=== PATIENT | male | born 1950 | race Caucasian/White ===

== ENCOUNTER 2016-06-03 07:48 | Inpatient (IN) | payer MEDICARE, MEDICAID ==
[~2016-06-03 07:48] MED LIST: Lidocaine 1%/Sod Bicarbonate in NS 8.4% 1 ML Syringe IV PRN; Sodium Chloride 0.9% 10 ML Syringe FLUSH PRN
[2016-06-03] MEDS ORDERED: Propofol 200 MG/20 ML SDV ONE ×2 (07:55→15:05)
[2016-06-03] MEDS ORDERED: fentaNYL 250 MCG/5 ML SDV ONE ×2 (07:55→12:58)
[2016-06-03] MEDS ORDERED: Midazolam 1 MG/ML 2 ML SDV ONE (07:55)
[2016-06-03] MEDS ORDERED: Rocuronium 50 MG/5 ML Vial ONE ×2 (07:58→14:50)
[2016-06-03] MEDS ORDERED: Lidocaine 1% 4 ML ONE (07:58)
[2016-06-03] MEDS: Lactated Ringers 1,000 ML IV SCH ×3 (08:35→21:10)
[2016-06-03] MEDS ORDERED: Bupivacaine 0.25% 30 ML SDV ONE (08:38)
--- NOTE | 2016-06-03 09:22 | PCM.PREANE ---
Preanesthetic Assessment - Physical Assessment Height: 1.8 m Weight: 81.647 kg - Allergies Allergies/Adverse Reactions: Allergies Allergy/AdvReac Type Severity Reaction Status Date / Time trazodone Allergy Other Verified 05/31/16 11:06 PreAnesthesia Questionnaire HEENT History: Reports: Impaired vision Other HEENT History: glasses Cardiovascular History: Reports: High cholesterol, Hypertension, PVD Respiratory History: Reports: None Gastrointestinal History: Reports: Chronic constipation, Gastritis, Other (see below) Other Gastrointestinal History: tubular adenoma Genitourinary History: Reports: Retention, urinary 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 Musculoskeletal History: Reports: None Neurological History: Reports: None Psychiatric History: Reports: Addiction, Anxiety, Depression, Schizophrenia, Suicidal ideation Endocrine/Metabolic History: Reports: Other (see below) Other Endocrine/Metabolic History: states was Dx'd with "pre-diabetic." Hematologic History: Reports: None Immunologic History: Reports: None Oncologic (Cancer) History: Reports: None Dermatologic History: Reports: None - Infectious Disease History Infectious Disease History: Reports: Shingles - Past Surgical History Head Surgeries/Procedures: Reports: None Cardiovascular Surgical History: Reports: Vascular surgery Other Cardiovascular Surgeries/Procedures: iliac artery stenosis with stent placement 07/2015 GI Surgical History: Reports: Colonoscopy - SUBSTANCE USE Smoking Status *Q: Current Every Day Smoker Tobacco Use Within Last Twelve Months: Cigarettes Second Hand Smoke Exposure: No Recreational Drug Use History: No Recreational Drug Type: Reports: Marijuana/Hashish - HOME MEDS Home Medications: Home Meds Losartan [Cozaar] 100 mg PO DAILY 09/13/15 [History] Propranolol [Inderal] 40 mg PO QID 09/13/15 [History] Tamsulosin HCl [Tamsulosin HCl] 0.4 mg PO BEDTIME 09/13/15 [History] atorvaSTATin [Lipitor] 20 mg PO BEDTIME 09/13/15 [History] metFORMIN [Glucophage XR] 500 mg PO BID 09/13/15 [History] Cholecalciferol (Vitamin D3) [Vitamin D3] 2,000 unit PO DAILY 10/13/15 [History] risperiDONE [risperiDONE] 1 mg PO BID 10/13/15 [History] Sertraline HCl [Zoloft] 50 mg PO DAILY 02/22/16 [History] clonazePAM [Clonazepam] 1 mg PO TID 02/22/16 [History] Alpha Lipoic Acid 200 mg PO DAILY 05/31/16 [History] Aspirin/Calcium Carbonate/Mag [Aspirin Buffered 325 mg Tab] 325 mg PO DAILY [History] Chromium Amino Acid Chelate [Chromium] 200 mcg PO DAILY 05/31/16 [History] Magnesium Citrate 100 mg PO DAILY 05/31/16 [History] Multivitamin [Multivitamins] 1 tab PO DAILY 05/31/16 [History] Pantoprazole Sodium [Protonix] 40 mg PO DAILY 05/31/16 [History] amLODIPine [Norvasc] 10 mg PO DAILY 05/31/16 [History] - CURRENT (IN HOUSE) MEDS Current Meds: Current Medications Lactated Ringer's (Ringers, Lactated) 1,000 mls @ 125 mls/hr IV ASDIRECTED OG Lidocaine/Sodium Bicarbonate (Buffered Lidocaine 1% In Ns 8.4%) 0.25 ml IV ONETIME PRN PRN Reason: Prior to IV Start Stop: 06/03/16 16:00 Sodium Chloride (Saline Flush) 10 ml FLUSH ASDIRECTED PRN PRN Reason: Keep Vein Open Discontinued Medications Bupivacaine HCl (Marcaine 0.25%) Confirm Administered Dose 30 ml .ROUTE .STK- MED ONE Stop: 06/03/16 08:39 Fentanyl (Sublimaze) Confirm Administered Dose 250 mcg .ROUTE .STK-MED ONE Stop: 06/03/16 07:56 Lidocaine HCl (Xylocaine-Mpf 1%) Confirm Administered Dose 4 mls @ as directed .ROUTE .STK-MED ONE Stop: 06/03/16 07:59 Midazolam HCl (Versed 1 Mg/Ml) Confirm Administered Dose 2 mg .ROUTE .STK-MED ONE Stop: 06/03/16 07:56 Propofol (Diprivan 20 Ml) Confirm Administered Dose 400 mg .ROUTE .STK-MED ONE Stop: 06/03/16 07:56 Rocuronium [place] (Zemuron) Confirm Administered Dose 50 mg .ROUTE .STK-MED ONE Stop: 06/03/16 07:59 Preanesthetic Assessment - PHYSICAL ASSESSMENT Height: 1.8 m Weight: 81.647 kg - ALLERGIES Allergies/Adverse Reactions: Allergies Allergy/AdvReac Type Severity Reaction Status Date / Time trazodone Allergy Other Verified 05/31/16 11:06
--- NOTE | 2016-06-03 09:31 | PCM.PREANE ---
Preanesthetic Assessment - Anesthesia/Transfusion/Family Hx Anesthesia History: No Prior Anesthesia Family History of Anesthesia Reaction: No Transfusion History: No Prior Transfusion(s) Intubation History: Unknown - Review of Systems General: No Symptoms Pulmonary: No Symptoms Cardiovascular: No Symptoms Gastrointestinal: No symptoms Neurological: No Symptoms Other: Reports: Diabetes - Physical Assessment NPO Status Date: 06/03/16 NPO Status Time: 22:00 Pulse: 63 O2 Sat by Pulse Oximetry: 97 Respiratory Rate: 16 Blood Pressure: 121/68 Temperature: 97.8 C Height: 1.8 m Weight: 81.647 kg ASA Class: 3 Mental Status: Alert & Oriented x3 Airway Class: Mallampati = 2 Dentition: Reports: Normal Dentition Thyro-Mental Finger Breadths: 2 Mouth Opening Finger Breadths: 4 ROM/Head Extension: Full Lungs: Clear to auscultation, Normal respiratory effort Cardiovascular: Regular Rate, Regular Rhythm - Lab Values: Laboratory Last Values WBC 10.73 K/mm3 (4.23-9.07) H 06/03/16 08:51 RBC 4.22 M/mm3 (4.63-6.08) L 06/03/16 08:51 Hgb 12.3 gm/L (13.7-17.5) L 06/03/16 08:51 Hct 36.9 % (40.1-51.0) L 06/03/16 08:51 MCV 87.4 fl (79.0-92.2) 06/03/16 08:51 MCH 29.1 pg (25.7-32.2) 06/03/16 08:51 MCHC 33.3 g/dl (32.2-35.5) 06/03/16 08:51 RDW Std Deviation 39.5 fL (35.1-43.9) 06/03/16 08:51 Plt Count 454 K/mm3 (163-337) H 06/03/16 08:51 MPV 9.2 fl (9.4-12.3) L 06/03/16 08:51 Neut % (Auto) 72.1 % (34.0-67.9) H 06/03/16 08:51 Lymph % (Auto) 14.4 % (21.8-53.1) L 06/03/16 08:51 [place] % (Auto) 8.7 % (5.3-12.2) 06/03/16 08:51 Eos % (Auto) 3.8 (0.8-7.0) 06/03/16 08:51 Baso % (Auto) 0.7 % (0.1-1.2) 06/03/16 08:51 Neut # (Auto) 7.75 K/mm3 (1.78-5.38) H 06/03/16 08:51 Lymph # (Auto) 1.54 K/mm3 (1.32-3.57) 06/03/16 08:51 [place] # (Auto) 0.93 K/mm3 (0.30-0.82) H 06/03/16 08:51 Eos # (Auto) 0.41 K/mm3 (0.04-0.54) 06/03/16 08:51 Baso # (Auto) 0.07 K/mm3 (0.01-0.08) 06/03/16 08:51 - Allergies Allergies/Adverse Reactions: Allergies Allergy/AdvReac Type Severity Reaction Status Date / Time trazodone Allergy Other Verified 06/03/16 09:15 - Blood Blood Available: No - Anesthesia Plan Pre-Op Medication Ordered: Beta Brenna Beta Brenna: Other Med Last Dose Date: 06/03/16 Med Last Dose Time: 06:30 - Acknowledgements Anesthesia Type Planned: General Anesthesia Pt an Appropriate Candidate for the Planned Anesthesia: Yes Alternatives and Risks of Anesthesia Discussed w Pt/Guardian: Yes Pt/Guardian Understands and Agrees with Anesthesia Plan: Yes Additional Comments: Pharmacy called and confirmed octreotide available and will be used in the OR for treatment of 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 Musculoskeletal History: Reports: None Neurological History: Reports: None Psychiatric History: Reports: Addiction, Anxiety, Depression, Schizophrenia, Suicidal ideation Endocrine/Metabolic History: Reports: Other (see below) Other Endocrine/Metabolic History: states was Dx'd with "pre-diabetic." Hematologic History: Reports: None Immunologic History: Reports: None Oncologic (Cancer) History: Reports: None Dermatologic History: Reports: None - Infectious Disease History Infectious Disease History: Reports: Shingles - Past Surgical History Head Surgeries/Procedures: Reports: None Cardiovascular Surgical History: Reports: Vascular surgery Other Cardiovascular Surgeries/Procedures: iliac artery stenosis with stent placement 07/2015 GI Surgical History: Reports: Colonoscopy - SUBSTANCE USE Smoking Status *Q: Current Every Day Smoker Tobacco Use Within Last Twelve Months: Cigarettes (12/ day) Second Hand Smoke Exposure: No Recreational Drug Use History: No Recreational Drug Type: Reports: Marijuana/Hashish - HOME MEDS Home Medications: Home Meds Losartan [Cozaar] 100 mg PO DAILY 09/13/15 [History] Propranolol [Inderal] 40 mg PO QID 09/13/15 [History] Tamsulosin HCl [Tamsulosin HCl] 0.4 mg PO BEDTIME 09/13/15 [History] atorvaSTATin [Lipitor] 20 mg PO BEDTIME 09/13/15 [History] metFORMIN [Glucophage XR] 500 mg PO BID 09/13/15 [History] Cholecalciferol (Vitamin D3) [Vitamin D3] 2,000 unit PO DAILY 10/13/15 [History] risperiDONE [risperiDONE] 1 mg PO BID 10/13/15 [History] Sertraline HCl [Zoloft] 50 mg PO DAILY 02/22/16 [History] clonazePAM [Clonazepam] 1 mg PO TID 02/22/16 [History] Alpha Lipoic Acid 200 mg PO DAILY 05/31/16 [History] Aspirin/Calcium Carbonate/Mag [Aspirin Buffered 325 mg Tab] 325 mg PO DAILY [History] Chromium Amino Acid Chelate [Chromium] 200 mcg PO DAILY 05/31/16 [History] Magnesium Citrate 100 mg PO DAILY 05/31/16 [History] Multivitamin [Multivitamins] 1 tab PO DAILY 05/31/16 [History] Pantoprazole Sodium [Protonix] 40 mg PO DAILY 05/31/16 [History] amLODIPine [Norvasc] 10 mg PO DAILY 05/31/16 [History] - CURRENT (IN HOUSE) MEDS Current Meds: Current Medications Lactated Ringer's (Ringers, Lactated) 1,000 mls @ 125 mls/hr IV ASDIRECTED OG Octreotide Acetate 1,000 mcg/ (Sodium Chloride) 100 mls @ 25 mls/hr IV ONETIME OG Lidocaine/Sodium Bicarbonate (Buffered Lidocaine 1% In Ns 8.4%) 0.25 ml IV ONETIME PRN PRN Reason: Prior to IV Start Stop: 06/03/16 16:00 Sodium Chloride (Saline Flush) 10 ml FLUSH ASDIRECTED PRN PRN Reason: Keep Vein Open Discontinued Medications Bupivacaine HCl (Marcaine 0.25%) Confirm Administered Dose 30 ml .ROUTE .STK- MED ONE Stop: 06/03/16 08:39 Fentanyl (Sublimaze) Confirm Administered Dose 250 mcg .ROUTE .STK-MED ONE Stop: 06/03/16 07:56 Lidocaine HCl (Xylocaine-Mpf 1%) Confirm Administered Dose 4 mls @ as directed .ROUTE .STK-MED ONE Stop: 06/03/16 07:59 Midazolam HCl (Versed 1 Mg/Ml) Confirm Administered Dose 2 mg .ROUTE .STK-MED ONE Stop: 06/03/16 07:56 Propofol (Diprivan 20 Ml) Confirm Administered Dose 400 mg .ROUTE .STK-MED ONE Stop: 06/03/16 07:56 Rocuronium [place] (Zemuron) Confirm Administered Dose 50 mg .ROUTE .STK-MED ONE Stop: 06/03/16 07:59 Preanesthetic Assessment - PHYSICAL ASSESSMENT Height: 1.8 m Weight: 81.647 kg - LAB Values: Laboratory Last Values WBC 10.73 K/mm3 (4.23-9.07) H 06/03/16 08:51 RBC 4.22 M/mm3 (4.63-6.08) L 06/03/16 08:51 Hgb 12.3 gm/L (13.7-17.5) L 06/03/16 08:51 Hct 36.9 % (40.1-51.0) L 06/03/16 08:51 MCV 87.4 fl (79.0-92.2) 06/03/16 08:51 MCH 29.1 pg (25.7-32.2) 06/03/16 08:51 MCHC 33.3 g/dl (32.2-35.5) 06/03/16 08:51 RDW Std Deviation 39.5 fL (35.1-43.9) 06/03/16 08:51 Plt Count 454 K/mm3 (163-337) H 06/03/16 08:51 MPV 9.2 fl (9.4-12.3) L 06/03/16 08:51 Neut % (Auto) 72.1 % (34.0-67.9) H 06/03/16 08:51 Lymph % (Auto) 14.4 % (21.8-53.1) L 06/03/16 08:51 [place] % (Auto) 8.7 % (5.3-12.2) 06/03/16 08:51 Eos % (Auto) 3.8 (0.8-7.0) 06/03/16 08:51 Baso % (Auto) 0.7 % (0.1-1.2) 06/03/16 08:51 Neut # (Auto) 7.75 K/mm3 (1.78-5.38) H 06/03/16 08:51 Lymph # (Auto) 1.54 K/mm3 (1.32-3.57) 06/03/16 08:51 [place] # (Auto) 0.93 K/mm3 (0.30-0.82) H 06/03/16 08:51 Eos # (Auto) 0.41 K/mm3 (0.04-0.54) 06/03/16 08:51 Baso # (Auto) 0.07 K/mm3 (0.01-0.08) 06/03/16 08:51 - ALLERGIES Allergies/Adverse Reactions: Allergies Allergy/AdvReac Type Severity Reaction Status Date / Time trazodone Allergy Other Verified 06/03/16 09:15
[2016-06-03] MEDS ORDERED: Ondansetron 4 MG/2 ML SDV IVPUSH ONE (09:55)
[2016-06-03] MEDS ORDERED: Famotidine 20 MG/2 ML SDV IVPUSH ONE (09:57)
[2016-06-03] MEDS ORDERED: Acetaminophen 325 MG Tab PO STA (09:58)
[2016-06-03] MEDS ORDERED: cefOXitin 2 GM in Premix Bag 1 BAG IV SCH (10:00)
[2016-06-03] MEDS ORDERED: Octreotide 50 MCG/1 ML Amp ONE (11:00)
[2016-06-03] MEDS ORDERED: ePHEDrine/Normal Saline 25 MG/5 ML Syringe ONE ×3 (11:55→13:43)
[2016-06-03] MEDS ORDERED: Phenylephrine/Normal Saline 100 MCG/ML 10 ML Syringe ONE ×2 (11:56→13:37)
[2016-06-03] MEDS ORDERED: Ketamine 500 mg/10 ML MDV ONE (12:55)
[2016-06-03] MEDS ORDERED: Ondansetron 4 MG/2 ML SDV IVPUSH PRN ×2 (12:56→15:45)
[2016-06-03] MEDS ORDERED: diphenhydrAMINE 50 MG/ML SDV IVPUSH PRN (12:56)
[2016-06-03] MEDS ORDERED: fentaNYL 100 MCG/2 ML SDV IVPUSH PRN (12:56)
[2016-06-03] MEDS ORDERED: HYDROmorphone 0.5 MG/0.5 ML Syringe IVPUSH PRN (14:05)
[2016-06-03] MEDS ORDERED: Lactated Ringers 1,000 ML ONE ×5 (14:17→15:05)
[2016-06-03] MEDS ORDERED: HYDROmorphone 1 MG/ML Syringe ONE (14:18)
[2016-06-03] MEDS ORDERED: Neostigmine Methylsulfate 1 MG/ML 5 ML Syringe ONE (15:10)
[2016-06-03] MEDS ORDERED: Ketorolac 30 MG/ML SDV ONE (15:14)
[2016-06-03] MEDS ORDERED: Albuterol 6.7 GM Inhaler INH ONE (15:30)
--- NOTE | 2016-06-03 15:31 | PCM.OPNOTE ---
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
--- NOTE | 2016-06-03 15:52 | PCM.POSTAN ---
POST ANESTHESIA ASSESSMENT - MENTAL STATUS Mental Status: other (drowsy ) - VITAL SIGNS Pulse Rate: 92 SaO2: 99 Resp Rate: 12 Blood Pressure: 139/69 Temperature: 36.9 C - RESPIRATORY Respiratory Status: respiratory rate WNL, airway patent, O2 saturation stable - CARDIOVASCULAR CV Status: pulse rate WNL, blood pressure stable - GASTROINTESTINAL GI Status: no symptoms - PAIN Pain Score: 0 - POST OP HYDRATION Hydration Status: adequate & stable
--- NOTE | 2016-06-03 16:12 | PCM.CONS ---
H&P History of Present Illness - General Date of Service: 06/03/16 Admit Problem/Dx: Admission Diagnosis/Problem Admission Diagnosis/Problem Colectomy - History of Present Illness Initial Comments - Free Text/Narative: This is a 65-year-old male with a history of hypertension, pre-diabetes, Schizophrenia, peripheral arterial disease, depression, BPH, hyperlipidemia, anxiety, GERD, and other comorbidities who underwent right hemicolectomy for large cecal polyp with Dr. Coy today. At this time, patient reports that the pain is under control and otherwise denies any other active complaints. Estimated blood loss was 50 cc. During the surgery, patient required few hours of [place]-Synephrine infusion for blood pressure of 100/40s, occasionally dipping down to the 70s systolic. He also required several boluses of octreotide, as his tumor in the colon was suspected to be possible carcinoid. He received about 4.2 L of IV fluids during the surgery. Postoperatively his blood pressure was in the 150s systolic and stable. Patient has a flat affect upon interview. He is not answering some of my questions. Does not to be in distress. We are being asked to evaluate him for management of his chronic medical comorbidities including hypertension, prediabetes, depression, and PAD. Abdomen Pain Score (Numeric/FACES): 2 - Related Data Allergies/Adverse Reactions: Allergies Allergy/AdvReac Type Severity Reaction Status Date / Time trazodone Allergy Other Verified 06/03/16 09:15 Home Medications: Home Meds Losartan [Cozaar] 100 mg PO DAILY 09/13/15 [History] Propranolol [Inderal] 40 mg PO QID 09/13/15 [History] Tamsulosin HCl [Tamsulosin HCl] 0.4 mg PO BEDTIME 09/13/15 [History] atorvaSTATin [Lipitor] 20 mg PO BEDTIME 09/13/15 [History] metFORMIN [Glucophage XR] 500 mg PO BID 09/13/15 [History] Cholecalciferol (Vitamin D3) [Vitamin D3] 2,000 unit PO DAILY 10/13/15 [History] risperiDONE [risperiDONE] 1 mg PO BID 10/13/15 [History] Sertraline HCl [Zoloft] 50 mg PO DAILY 02/22/16 [History] clonazePAM [Clonazepam] 1 mg PO TID 02/22/16 [History] Alpha Lipoic Acid 200 mg PO DAILY 05/31/16 [History] Chromium Amino Acid Chelate [Chromium] 200 mcg PO DAILY 05/31/16 [History] Magnesium Citrate 100 mg PO DAILY 05/31/16 [History] Multivitamin [Multivitamins] 1 tab PO DAILY 05/31/16 [History] Pantoprazole Sodium [Protonix] 40 mg PO DAILY 05/31/16 [History] amLODIPine [Norvasc] 10 mg PO DAILY 05/31/16 [History] Aspirin [Ecotrin] 325 mg PO DAILY 06/03/16 [History] Past Medical History HEENT History: Reports: Impaired vision Other HEENT History: glasses Cardiovascular History: Reports: High cholesterol, Hypertension, PVD Respiratory History: Reports: None Gastrointestinal History: Reports: Chronic constipation, Gastritis, Other (see below) Other Gastrointestinal History: tubular adenoma Genitourinary History: Reports: Retention, urinary 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 Musculoskeletal History: Reports: None Neurological History: Reports: None Psychiatric History: Reports: Addiction, Anxiety, Depression, Schizophrenia, Suicidal ideation Endocrine/Metabolic History: Reports: Other (see below) Other Endocrine/Metabolic History: states was Dx'd with "pre-diabetic." Hematologic History: Reports: None Immunologic History: Reports: None Oncologic (Cancer) History: Reports: None Dermatologic History: Reports: None - Infectious Disease History Infectious Disease History: Reports: Shingles - Past Surgical History Head Surgeries/Procedures: Reports: None Cardiovascular Surgical History: Reports: Vascular surgery Other Cardiovascular Surgeries/Procedures: iliac artery stenosis with stent placement 07/2015 GI Surgical History: Reports: Colonoscopy Social & Family History - Family History Cardiac: Reports: High cholesterol, [place] (Father), Other (see below) (Unspecified heart disease in mother) - Tobacco Use Smoking Status *Q: Current Every Day Smoker Years of Tobacco use: 45 Packs/Tins Daily: 0.5 Second Hand Smoke Exposure: No - Caffeine Use Caffeine Use: Reports: None - Recreational Drug Use Recreational Drug Use: No Recreational Drug Type: Reports: Marijuana/Hashish - Living Situation & Occupation Living situation: Reports: single, alone Occupation: retired H&P Review of Systems - Review of Systems: Review Of Systems: See Below (Review of systems is unreliable as patient was only answering some of the questions.) General: Denies: fever, chills, night sweats HEENT: Denies: headaches, vertigo Pulmonary: Denies: Shortness of Breath, Wheezing, Cough Cardiovascular: Denies: chest pain, palpitations, orthopnea Gastrointestinal: Denies: Abdominal pain, Diarrhea, Nausea, Vomiting Genitourinary: Denies: dysuria, frequency, burning Psychiatric: Denies: confusion, depression, anxiety Exam - Exam Exam: See Below - Vital Signs Vital Signs: Last Vital Signs Temp 36.9 C 06/03/16 15:52 Pulse 87 06/03/16 15:53 Resp 16 06/03/16 15:53 BP 154/56 H 06/03/16 15:53 Pulse Ox 100 06/03/16 15:53 Weight: 81.647 kg - Exam Physical Exam Comments:: Vitals: as above General: alert and oriented. NAD Psych: Pleasant affect. Only answering some questions. calm. HEENT: normocephalic, atraumatic. EOMI Cardiac: Normal S1, S2. regular rate. No murmurs rubs, or gallops. No JVD noted. Lungs: CTAB. good air entry bilaterally. Abd: Soft, NT/ND. No HSM noted. Multiple new incision sites and dressing, which appear to be dry. Skin: no new visible rashes or purpura noted Neuro: CN grossly intact. Strength intact and adequate bilaterally. - Patient Data Lab Results last 24 hrs: Laboratory Results - last 24 hr 06/03/16 06/03/16 06/03/16 Range/Units 08:51 08:51 08:51 WBC 10.73 H (4.23-9.07) K/mm3 RBC 4.22 L (4.63-6.08) M/mm3 Hgb 12.3 L (13.7-17.5) gm/L Hct 36.9 L (40.1-51.0) % MCV 87.4 (79.0-92.2) fl MCH 29.1 (25.7-32.2) pg MCHC 33.3 (32.2-35.5) g/dl RDW Std Deviation 39.5 (35.1-43.9) fL Plt Count 454 H (163-337) K/mm3 MPV 9.2 L (9.4-12.3) fl Neut % (Auto) 72.1 H (34.0-67.9) % Lymph % (Auto) 14.4 L (21.8-53.1) % [place] % (Auto) 8.7 (5.3-12.2) % Eos % (Auto) 3.8 (0.8-7.0) Baso % (Auto) 0.7 (0.1-1.2) % Neut # (Auto) 7.75 H (1.78-5.38) K/mm3 Lymph # (Auto) 1.54 (1.32-3.57) K/mm3 [place] # (Auto) 0.93 H (0.30-0.82) K/mm3 Eos # (Auto) 0.41 (0.04-0.54) K/mm3 Baso # (Auto) 0.07 (0.01-0.08) K/mm3 Sodium 135 L (136-145) mEq/L Potassium 4.0 (3.5-5.1) mEq/L Chloride 100 (98-107) mEq/L Carbon Dioxide 24 (21-32) mEq/L Anion Gap 15.0 (5-15) BUN 5 L (7-18) mg/dL Creatinine 0.8 (0.7-1.3) mg/dL Est Cr Clr Drug Dosing 96.74 mL/min Estimated GFR (MDRD) > 60 (>60) mL/min BUN/Creatinine Ratio 6.3 L (14-18) Glucose 132 H (80-115) mg/dL POC Glucose (80-115) mg/dL Calcium 8.6 (8.5-10.1) mg/dL Blood Type O POSITIVE Gel Antibody Screen Negative 06/03/16 Range/Units 09:46 WBC (4.23-9.07) K/mm3 RBC (4.63-6.08) M/mm3 Hgb (13.7-17.5) gm/L Hct (40.1-51.0) % MCV (79.0-92.2) fl MCH (25.7-32.2) pg MCHC (32.2-35.5) g/dl RDW Std Deviation (35.1-43.9) fL Plt Count (163-337) K/mm3 MPV (9.4-12.3) fl Neut % (Auto) (34.0-67.9) % Lymph % (Auto) (21.8-53.1) % [place] % (Auto) (5.3-12.2) % Eos % (Auto) (0.8-7.0) Baso % (Auto) (0.1-1.2) % Neut # (Auto) (1.78-5.38) K/mm3 Lymph # (Auto) (1.32-3.57) K/mm3 [place] # (Auto) (0.30-0.82) K/mm3 Eos # (Auto) (0.04-0.54) K/mm3 Baso # (Auto) (0.01-0.08) K/mm3 Sodium (136-145) mEq/L Potassium (3.5-5.1) mEq/L Chloride (98-107) mEq/L Carbon Dioxide (21-32) mEq/L Anion Gap (5-15) BUN (7-18) mg/dL Creatinine (0.7-1.3) mg/dL Est Cr Clr Drug Dosing mL/min Estimated GFR (MDRD) (>60) mL/min BUN/Creatinine Ratio (14-18) Glucose (80-115) mg/dL POC Glucose 121 H (80-115) mg/dL Calcium (8.5-10.1) mg/dL Blood Type Gel Antibody Screen Result Diagrams: 06/03/16 08:51 06/03/16 08:51 Consult PN Assessment/Plan POD#: 0 Procedures: Procedures ASSAY OF AMYLASE (09/13/15) ASSAY OF LIPASE (03/26/16) ASSAY OF MAGNESIUM (10/13/15) ASSAY OF TROPONIN QUANT (10/13/15) ASSAY THYROID STIM HORMONE (10/13/15) BLOOD GASES ANY COMBINATION (10/13/15) CHEST X-RAY 2VW FRONTAL&LATL (10/13/15) COMPLETE CBC W/AUTO DIFF WBC (03/26/16) COMPREHEN METABOLIC PANEL (03/26/16) CT ANGIO ABDOMINAL ARTERIES (06/16/15) ELECTROCARDIOGRAM TRACING (10/13/15) EMERGENCY DEPT VISIT (03/26/16) EMERGENCY DEPT VISIT (02/22/16) EMERGENCY DEPT VISIT (09/24/15) EMERGENCY DEPT VISIT (09/13/15) FIBRIN DEGRADATION QUANT (10/13/15) HELICOBACTER PYLORI ANTIBODY (02/22/16) HYDRATE IV INFUSION ADD-ON (10/11/15) ROUTINE VENIPUNCTURE (03/26/16) RPR S/N/AX/GEN/TRNK 2.5CM/< (02/22/16) THER/PROPH/DIAG INJ IV PUSH (10/11/15) TX/PRO/DX INJ NEW DRUG ADDON (10/11/15) TX/PRO/DX INJ SAME DRUG 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 (09/24/15) URINALYSIS AUTO W/O SCOPE (10/11/15) URINALYSIS AUTO W/SCOPE (03/26/16) WITHDRAWAL OF ARTERIAL BLOOD (10/13/15) X-RAY EXAM OF ABDOMEN (02/22/16) (1) HTN (hypertension) SNOMED Code(s): 48025401 Code(s): I10 - ESSENTIAL (PRIMARY) HYPERTENSION Current Visit: Yes Qualifiers: Hypertension type: unspecified secondary hypertension Qualified Code(s): I15.9 - Secondary hypertension, unspecified; I15 - Secondary hypertension (2) GERD (gastroesophageal reflux disease) SNOMED Code(s): 718172804 Code(s): K21.9 - GASTRO-ESOPHAGEAL REFLUX DISEASE WITHOUT ESOPHAGITIS Current Visit: Yes Qualifiers: Esophagitis presence: esophagitis presence not specified Qualified Code(s) : K21.9 - Gastro-esophageal reflux disease without esophagitis (3) PAD (peripheral artery disease) SNOMED Code(s): 828406198 Code(s): I73.9 - PERIPHERAL VASCULAR DISEASE, UNSPECIFIED Current Visit: Yes (4) Anxiety SNOMED Code(s): 90395107 Code(s): F41.9 - ANXIETY DISORDER, UNSPECIFIED Current Visit: No Problem List Initiated/Reviewed/Updated: Yes Plan: Large right cecal polyp, s/p Right hemicolectomy, POD#0 - Pain regimen per primary team; pain currently under control Severe intraoperative hypotension. Resolved with fluids, and octreotide. 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 Continue to monitor closely. Has an arterial line in place. Chronic medical conditions: Hypertension-continue ARB, and looking Prediabetes-hold metformin while in the hospital, no need for sliding scale insulin as HBA1c was 5.7% in Apr GERD-continue PPI PAD - would resume aspirin starting tomorrow, okay per Dr. Coy. Depression-continue SSRI BPH-continue off shailesh Hyperlipidemia-continue statin Anxiety-continue clonazepam as needed Psychiatric comorbidities discontinue Risperdal I reconciled the medications as mentioned above and discussed case with Dr. Coy. DVT prophylaxis with SCDs today, and patient to resume aspirin tomorrow, and start subcutaneous case Lovenox per Dr. Coy. Requesting Provider: Dr. Coy Date Consult Requested: 06/03/16 Reason for Consult: medical management Patient History Reviewed: Yes Admission H&P Reviewed: Yes
[2016-06-03] MEDS ORDERED: Sodium Chloride 0.9% 500 ML ONE (16:53)
[2016-06-03] MEDS ORDERED: Diphtheria,Pertussis(Acell),Tetanus Vaccine 0.5 ML SDV inactive IM ONE (17:22)
[2016-06-03] MEDS: HYDROmorphone 0.5 MG/0.5 ML Syringe IVPUSH PRN ×2 (17:30→22:01)
[2016-06-03] MEDS: ClonazePAM 1 MG Tab PO SCH ×2 (18:48→21:59)
[2016-06-03] MEDS: Propranolol 40 MG Tab PO SCH ×2 (18:48→21:59)
[2016-06-03] MEDS: risperiDONE 1 MG Tab PO SCH (21:59)
[2016-06-03] MEDS: Simvastatin 20 MG Tab PO SCH (21:59)
[2016-06-03] MEDS: Tamsulosin 0.4 MG Cap.ER PO SCH (21:59)
[2016-06-04] MEDS: HYDROmorphone 0.5 MG/0.5 ML Syringe IVPUSH PRN ×3 (02:13→20:10)
[2016-06-04] MEDS: Lactated Ringers 1,000 ML IV SCH ×2 (06:29→16:31)
[2016-06-04] MEDS: Pantoprazole 40 MG Tab.CR PO SCH (06:43)
--- NOTE | 2016-06-04 07:23 | OR ---
DATE OF OPERATION: 06/03/2016 SURGEON: Vernon Jacques MD PREOPERATIVE DIAGNOSIS: Adenoma of the cecum, with carcinoid of the ascending colon. POSTOPERATIVE DIAGNOSIS: Adenoma of the cecum, with carcinoid of the ascending colon. OPERATION PERFORMED: Right hemicolectomy done under general anesthetic. ESTIMATED BLOOD LOSS: 50 mL. FINDINGS: Adenoma of the cecum and history of carcinoid, removed by colonoscopy. ANESTHESIA: Done under general anesthetic. DESCRIPTION OF PROCEDURE: The patient was taken to the operating room, placed in a supine position under a mcgee bag. The patient was given a general anesthetic and intubated. SCDs were placed. Uribe catheter was inserted and he was placed in lithotomy position. The abdomen was prepped with Betadine scrubbing solution, draped off in a sterile fashion. Incision was made just below the umbilicus using a 10 mm port. The abdominal cavity was entered. Pneumoperitoneum was established and a 5 mm 30-degree camera was inserted. Abdominal cavity was scanned. Liver was free of any disease. There was no pathology seen. The patient was placed in reverse Trendelenburg, leftward tilt. The small bowel was then moved to the right upper quadrant and the omentum up over the liver. The cecum was tented in the right caudal position tenting up the ileal colic vessel, this was skeletonized, secured with 2 clips and cut. Dissection was carried superiorly where the right colic artery was then taken down. It was then carried inferiorly down as far as the ileum using the LigaSure. Appendix was then mobilized and the lateral dissection was then performed and extended up to the hepatic flexure. Attention was then directed to the transverse colon and this was taken down further up to where the section of the transverse colon on the right side was anticipated. Transverse colon was then retracted caudally and the mesocolon was then taken down along with the gastrocolic attachments. This mobilized the colon and right colon sufficiently. There was minimal blood loss. This completed the intraabdominal portion and incision was made from the umbilicus down for short distance and the abdominal cavity was entered and the cecum was then brought out and the mesentery was then taken down between curved hemostats, cut and tied with 3-0 Vicryl suture. The small bowel was then amputated with the SPENCER 55 stapler as was the transverse colon. Opening was made in the small bowel and the large bowel and a SPENCER 100 stapler was inserted and this was fired. Another TIA 90 was used to close this wound. This was allowed to fall back in the abdominal cavity and the surgical incision of the abdomen was closed with running #1 PDS. Pneumoperitoneum was established and showing no twist or turns in the small bowel or in the ileocolonic anastomosis. The area was then irrigated. This completed the intraabdominal portion. Pneumoperitoneum was removed and the skin of each port closed with subdermal 3-0 Vicryl sutures and the skin incision in the subumbilical area was closed with subdermal 3-0 Vicryl suture and running subdermal 4-0 Dexon suture. Steri-Strips, sterile dressing placed. The patient tolerated the procedure. Sterile dressing placed. The colon was then opened and placed in formalin and sent to pathology. MMODAL /[id number]
[2016-06-04] MEDS ORDERED: Pneumococcal Polyvalent-23 Vaccine 0.5 ML SDV SUBCUT ONE (07:59)
--- NOTE | 2016-06-04 08:08 | PCM48HPAN ---
Post Anesthesia Note - EVALUATION WITHIN 48HRS OF ANESTHETIC Vital Signs in Normal Range: Yes Patient Participated in Evaluation: Yes Respiratory Function Stable: Yes Airway Patent: Yes Cardiovascular Function Stable: Yes Hydration Status Stable: Yes Pain Control Satisfactory: Yes (Pt states was able to sleep last night. Reports 3-4 level of discomfort) Nausea and Vomiting Control Satisfactory: Yes Mental Status Recovered: Yes - COMMENTS/OBSERVATIONS Free Text/Narrative:: Pt reports no recall during anesthesia
[2016-06-04] MEDS: Magnesium Oxide 400 MG Tab PO SCH (10:02)
[2016-06-04] MEDS: Propranolol 40 MG Tab PO SCH ×4 (10:02→20:10)
[2016-06-04] MEDS: Aspirin 325 MG Tab.EC PO SCH (10:03)
[2016-06-04] MEDS: Cholecalciferol (Vitamin D3) 1,000 Unit Tab PO SCH (10:03)
[2016-06-04] MEDS: Multivitamins,Therapeutic Tab PO SCH (10:03)
[2016-06-04] MEDS: Losartan 100 MG Tab PO SCH (10:03)
[2016-06-04] MEDS: risperiDONE 1 MG Tab PO SCH ×2 (10:04→20:10)
[2016-06-04] MEDS: amLODIPine 10 MG Tab PO SCH (10:04)
[2016-06-04] MEDS: Sertraline 50 MG Tab PO SCH (10:04)
[2016-06-04] MEDS: ClonazePAM 1 MG Tab PO SCH ×3 (10:04→20:10)
[2016-06-04] MEDS: Enoxaparin 40 MG/0.4 ML Syringe SUBCUT SCH (10:04)
[2016-06-04] MEDS: Nicotine 14 MG/24 Hr Patch TRDERM SCH (10:05)
--- NOTE | 2016-06-04 10:49 | PCM.SURGPN ---
- General Info Date of Service: 06/04/16 POD#: 1 Functional Status: Reports: pain controlled - Review of Systems General: Reports: No Symptoms Pulmonary: Reports: no symptoms Gastrointestinal: Reports: No symptoms - Patient Data Vitals - most recent: Last Vital Signs Temp 97.3 F 06/04/16 08:00 Pulse 71 06/04/16 04:00 Resp 19 06/04/16 08:00 BP 141/69 H 06/04/16 10:04 Pulse Ox 94 L 06/04/16 08:00 Weight - most recent: 80.467 kg I&O - last 24 hours: Intake & Output 06/03/16 06/04/16 06/04/16 23:59 07:59 15:59 Intake Total 1125 1366 Output Total 100 400 500 Balance 1025 966 -500 Lab Results last 24 hrs: Laboratory Results - last 24 hr 06/03/16 06/04/16 06/04/16 Range/Units 08:51 06:35 06:35 WBC 11.00 H (4.23-9.07) K/mm3 RBC 3.73 L (4.63-6.08) M/mm3 Hgb 10.8 L (13.7-17.5) gm/L Hct 33.2 L (40.1-51.0) % MCV 89.0 (79.0-92.2) fl MCH 29.0 (25.7-32.2) pg MCHC 32.5 (32.2-35.5) g/dl RDW Std Deviation 40.6 (35.1-43.9) fL Plt Count 412 H (163-337) K/mm3 MPV 9.4 (9.4-12.3) fl Sodium 132 L (136-145) mEq/L Potassium 4.0 (3.5-5.1) mEq/L Chloride 99 (98-107) mEq/L Carbon Dioxide 26 (21-32) mEq/L Anion Gap 11.0 (5-15) BUN 5 L (7-18) mg/dL Creatinine 0.8 (0.7-1.3) mg/dL Est Cr Clr Drug Dosing 98.22 mL/min Estimated GFR (MDRD) > 60 (>60) mL/min BUN/Creatinine Ratio 6.3 L (14-18) Glucose 120 H (80-115) mg/dL Calcium 8.2 L (8.5-10.1) mg/dL Iron (65-175) ug/dL TIBC (100-400) ug/dL % Saturation (20-55) % Transferrin (202-364) mg/dL Total Bilirubin 0.5 (0.2-1.0) mg/dL AST 14 L (15-37) U/L ALT 24 (16-63) U/L Alkaline Phosphatase 80 (46-116) U/L Total Protein 5.8 L (6.4-8.2) g/dl Albumin 2.8 L (3.4-5.0) g/dl Globulin 3.0 gm/dL Albumin/Globulin Ratio 0.9 L (1-2) Vitamin B12 (193-986) pg/ml Folate (8.6-58.9) ng/mL Blood Type O POSITIVE Gel Antibody Screen Negative 06/04/16 Range/Units 06:35 WBC (4.23-9.07) K/mm3 RBC (4.63-6.08) M/mm3 Hgb (13.7-17.5) gm/L Hct (40.1-51.0) % MCV (79.0-92.2) fl MCH (25.7-32.2) pg MCHC (32.2-35.5) g/dl RDW Std Deviation (35.1-43.9) fL Plt Count (163-337) K/mm3 MPV (9.4-12.3) fl Sodium (136-145) mEq/L Potassium (3.5-5.1) mEq/L Chloride (98-107) mEq/L Carbon Dioxide (21-32) mEq/L Anion Gap (5-15) BUN (7-18) mg/dL Creatinine (0.7-1.3) mg/dL Est Cr Clr Drug Dosing mL/min Estimated GFR (MDRD) (>60) mL/min BUN/Creatinine Ratio (14-18) Glucose (80-115) mg/dL Calcium (8.5-10.1) mg/dL Iron 72 (65-175) ug/dL TIBC 261 (100-400) ug/dL % Saturation 28 (20-55) % Transferrin 209 (202-364) mg/dL Total Bilirubin (0.2-1.0) mg/dL AST (15-37) U/L ALT (16-63) U/L Alkaline Phosphatase (46-116) U/L Total Protein (6.4-8.2) g/dl Albumin (3.4-5.0) g/dl Globulin gm/dL Albumin/Globulin Ratio (1-2) Vitamin B12 3243 H (193-986) pg/ml Folate 14.6 (8.6-58.9) ng/mL Blood Type Gel Antibody Screen Med Orders - Current: Current Medications Amlodipine Besylate (Norvasc) 10 mg PO DAILY [facility] Last Admin: 06/04/16 10:04 Dose: 10 mg Aspirin (Ecotrin) 325 mg PO DAILY [facility] Last Admin: 06/04/16 10:03 Dose: 325 mg Cholecalciferol (Vitamin D3) 2,000 units PO DAILY [facility] Last Admin: 06/04/16 10:03 Dose: 2,000 units Clonazepam (Klonopin) 1 mg PO TID [facility] Last Admin: 06/04/16 10:04 Dose: 1 mg Enoxaparin Sodium (Lovenox) 40 mg SUBCUT DAILY [facility] Last Admin: 06/04/16 10:04 Dose: 40 mg Hydromorphone HCl (Dilaudid) 0.5 mg IVPUSH Q1H PRN PRN Reason: Pain Last Admin: 06/04/16 08:52 Dose: 0.5 mg Lactated Ringer's (Ringers, Lactated) 1,000 mls @ 100 mls/hr IV ASDIRECTED [facility] Last Admin: 06/04/16 06:29 Dose: 100 mls/hr Losartan Potassium (Cozaar) 100 mg PO DAILY [facility] Last Admin: 06/04/16 10:03 Dose: 100 mg Magnesium Oxide (Magnesium Oxide) 400 mg PO DAILY [facility] Miscellaneous Information (Remove Patch) 0 ea TRDERM DAILY [facility] Multivitamins (Thera) 1 each PO DAILY [facility] Last Admin: 06/04/16 10:03 Dose: 1 each Nicotine (Habitrol) 14 mg TRDERM DAILY [facility] Last Admin: 06/04/16 10:05 Dose: 14 mg Ondansetron HCl (Zofran) 4 mg IVPUSH Q8H PRN PRN Reason: Nausea Pantoprazole Sodium (Protonix) 40 mg PO DAILY@0700 [facility] Last Admin: 06/04/16 06:43 Dose: 40 mg Propranolol HCl (Inderal) 40 mg PO QID [facility] Last Admin: 06/04/16 10:02 Dose: 40 mg Risperidone (Risperidal) 1 mg PO BID [facility] Last Admin: 06/04/16 10:04 Dose: 1 mg Sertraline HCl (Zoloft) 50 mg PO DAILY [facility] Last Admin: 06/04/16 10:04 Dose: 50 mg Simvastatin (Zocor) 20 mg PO BEDTIME [facility] Last Admin: 06/03/16 21:59 Dose: 20 mg Sodium Chloride (Saline Flush) 10 ml FLUSH ASDIRECTED PRN PRN Reason: Keep Vein Open Last Admin: 06/04/16 08:53 Dose: 10 ml Tamsulosin HCl (Flomax) 0.4 mg PO BEDTIME [facility] Last Admin: 06/03/16 21:59 Dose: 0.4 mg Discontinued Medications Acetaminophen (Tylenol) 650 mg PO NOW STA Stop: 06/03/16 09:59 Last Admin: 06/03/16 10:09 Dose: 650 mg Albuterol (Proventil Hfa) Confirm Administered Dose 6.7 gm INH .STK-MED ONE Stop: 06/03/16 15:31 Bupivacaine HCl (Marcaine 0.25%) Confirm Administered Dose 30 ml .ROUTE .STK- MED ONE Stop: 06/03/16 08:39 Last Admin: 06/03/16 12:16 Dose: 2 ml Diphenhydramine HCl (Benadryl) 25 mg IVPUSH Q6H PRN PRN Reason: pruritis Stop: 06/03/16 18:00 Diphtheria/Tetanus/Acell Pertussis (Boostrix) 0.5 ml IM .ONCE ONE Stop: 06/03/16 17:23 Ephedrine Sulfate (Ephedrine In Ns) Confirm Administered Dose 25 mg .ROUTE .STK- MED ONE Stop: 06/03/16 11:56 Ephedrine Sulfate (Ephedrine In Ns) Confirm Administered Dose 25 mg .ROUTE .STK- MED ONE Stop: 06/03/16 13:23 Ephedrine Sulfate (Ephedrine In Ns) Confirm Administered Dose 25 mg .ROUTE .STK- MED ONE Stop: 06/03/16 13:44 Famotidine (Pepcid) 20 mg IVPUSH ONETIME ONE Stop: 06/03/16 09:58 Last Admin: 06/03/16 10:11 Dose: 20 mg Fentanyl (Sublimaze) Confirm Administered Dose 250 mcg .ROUTE .STK-MED ONE Stop: 06/03/16 07:56 Fentanyl (Sublimaze) Confirm Administered Dose 250 mcg .ROUTE .STK-MED ONE Stop: 06/03/16 12:59 Fentanyl (Sublimaze) 50 mcg IVPUSH Q5M PRN PRN Reason: Pain Stop: 06/03/16 18:00 Glycopyrrolate () Confirm Administered Dose 1 mg .ROUTE .STK-MED ONE Stop: 06/03/16 15:11 Hydromorphone HCl (Dilaudid) 0.5 mg IVPUSH Q15M PRN PRN Reason: severe pain Stop: 06/03/16 14:21 Hydromorphone HCl (Dilaudid) Confirm Administered Dose 1 mg .ROUTE .STK-MED ONE Stop: 06/03/16 14:19 Lactated Ringer's (Ringers, Lactated) 1,000 mls @ 125 mls/hr IV ASDIRECTED [facility] Last Admin: 06/03/16 09:42 Dose: 125 mls/hr Lidocaine HCl (Xylocaine-Mpf 1%) Confirm Administered Dose 4 mls @ as directed .ROUTE .STK-MED ONE Stop: 06/03/16 07:59 Octreotide Acetate 1,000 mcg/ (Sodium Chloride) 100 mls @ 25 mls/hr IV ONETIME OG Cefoxitin Sodium 2 gm/ Premix 50 mls @ 100 mls/hr IV ONETIME OG Stop: 06/03/16 23:59 Last Admin: 06/03/16 10:50 Dose: 100 mls/hr Octreotide Acetate 1,000 mcg/ (Sodium Chloride) 100 mls @ 25 mls/hr IV ONETIME GO Lactated Ringer's (Ringers, Lactated) Confirm Administered Dose 1,000 mls @ as directed .ROUTE .STK-MED ONE Stop: 06/03/16 14:18 Lactated Ringer's (Ringers, Lactated) Confirm Administered Dose 1,000 mls @ as directed .ROUTE .STK-MED ONE Stop: 06/03/16 14:18 Lactated Ringer's (Ringers, Lactated) Confirm Administered Dose 1,000 mls @ as directed .ROUTE .ST-MED ONE Stop: 06/03/16 14:18 Lactated Ringer's (Ringers, Lactated) Confirm Administered Dose 1,000 mls @ as directed .ROUTE .ST-MED ONE Stop: 06/03/16 14:18 Lactated Ringer's (Ringers, Lactated) Confirm Administered Dose 1,000 mls @ as directed .ROUTE .[facility]-MED ONE Stop: 06/03/16 15:06 Sodium Chloride (Normal Saline) Confirm Administered Dose 500 mls @ as directed .ROUTE .[facility]-MED ONE Stop: 06/03/16 16:54 Last Admin: 06/03/16 17:14 Dose: 1 ml Ketamine HCl (Ketalar) Confirm Administered Dose 500 mg .ROUTE .ST-MED ONE Stop: 06/03/16 12:56 Ketorolac Tromethamine (Toradol) Confirm Administered Dose 30 mg .ROUTE .[facility]- MED ONE Stop: 06/03/16 15:15 Lidocaine/Sodium Bicarbonate (Buffered Lidocaine 1% In Ns 8.4%) 0.25 ml IV ONETIME PRN PRN Reason: Prior to IV Start Stop: 06/03/16 16:00 Last Admin: 06/03/16 08:35 Dose: 0.25 ml Midazolam HCl (Versed 1 Mg/Ml) Confirm Administered Dose 2 mg .ROUTE .ST-MED ONE Stop: 06/03/16 07:56 Neostigmine Methylsulfate (Neostigmine) Confirm Administered Dose 5 mg .ROUTE .[facility]-MED ONE Stop: 06/03/16 15:11 Ondansetron HCl (Zofran) 4 mg IVPUSH ONETIME ONE Stop: 06/03/16 09:56 Last Admin: 06/03/16 10:09 Dose: 4 mg Ondansetron HCl (Zofran) 4 mg IVPUSH ONETIME PRN PRN Reason: Nausea/Vomiting Stop: 06/03/16 18:00 Phenylephrine HCl (Phenylephrine In Ns 100 Mcg/Ml) Confirm Administered Dose 1 mg .ROUTE .ST-MED ONE Stop: 06/03/16 11:57 Phenylephrine HCl (Phenylephrine In Ns 100 Mcg/Ml) Confirm Administered Dose 1 mg .ROUTE .[facility]-MED ONE Stop: 06/03/16 13:38 Pneumococcal Polyvalent Vaccine (Pneumovax 23) 0.5 ml SUBCUT .ONCE ONE Stop: 06/04/16 08:00 Propofol (Diprivan 20 Ml) Confirm Administered Dose 400 mg .ROUTE .STK-MED ONE Stop: 06/03/16 07:56 Propofol (Diprivan 20 Ml) Confirm Administered Dose 200 mg .ROUTE .STK-MED ONE Stop: 06/03/16 15:06 Rocuronium Timbo (Zemuron) Confirm Administered Dose 50 mg .ROUTE .STK-MED ONE Stop: 06/03/16 07:59 Rocuronium Timbo (Zemuron) Confirm Administered Dose 50 mg .ROUTE .STK-MED ONE Stop: 06/03/16 14:51 - Exam Wound/Incisions: healing well General: alert, oriented Lungs: Clear to auscultation, Normal respiratory effort Cardiovascular: Regular Rate, Regular Rhythm Abdomen: bowel sounds present, soft, no tenderness, no distension - Problem List Review Problem List Initiated/Reviewed/Updated: Yes - My Orders Last 24 Hours: Active Orders 24 hr Category Date Time Status Patient Status [ADT] Routine ADT 06/04/16 09:33 Active Ambulate [RC] ASDIRECTED Care 06/03/16 15:45 Active Antiembolic Devices [RC] PER UNIT ROUTINE Care 06/03/16 16:18 Active Communication Order [RC] ROUTINE Care 06/03/16 12:55 Active Insert Urinary Catheter [OM.PC] Q24H Care 06/03/16 15:30 Ordered Intake and Output [RC] 06,14,22 Care 06/03/16 15:45 Active Notify Provider Consults [RC] ASDIRECTED Care 06/03/16 15:34 Active Notify Provider [RC] ASDIRECTED Care 06/03/16 12:55 Active Pulse Oximetry [RC] ASDIRECTED Care 06/03/16 12:55 Active Vaccines to be Administered [RC] .discharge Care 06/03/16 17:23 Active Vital Signs [RC] Q4HR Care 06/03/16 12:55 Active Consult to Physician [CONS] Routine Cons 06/03/16 15:33 Active CBC W/O DIFF,HEMOGRAM [HEME] MOTH@0700 Lab 06/06/16 07:00 Ordered CBC W/O DIFF,HEMOGRAM [HEME] MOTH@0700 Lab 06/10/16 07:00 Ordered CBC W/O DIFF,HEMOGRAM [HEME] MOTH@0700 Lab 06/13/16 07:00 Ordered CBC W/O DIFF,HEMOGRAM [HEME] MOTH@0700 Lab 06/17/16 07:00 Ordered CBC W/O DIFF,HEMOGRAM [HEME] MOTH@0700 Lab 06/20/16 07:00 Ordered CBC W/O DIFF,HEMOGRAM [HEME] MOTH@0700 Lab 06/24/16 07:00 Ordered FE, TIBC, TRANSFERRIN, FE SAT [CHEM] Routine Lab 06/04/16 06:35 Results FERRITIN [CHEM] Routine Lab 06/04/16 06:35 Results FOLIC ACID [CHEM] Routine Lab 06/04/16 06:35 Results VITAMIN B12 [CHEM] Routine Lab 06/04/16 06:35 Results Aspirin [Ecotrin] Med 06/04/16 09:00 Active 325 mg PO DAILY Cholecalciferol (Vitamin D3) [Vitamin D3] Med 06/04/16 09:00 Active 2,000 units PO DAILY ClonazePAM [KlonoPIN] Med 06/03/16 17:00 Active 1 mg PO TID Enoxaparin [Lovenox] Med 06/04/16 09:00 Active 40 mg SUBCUT DAILY HYDROmorphone [Dilaudid] Med 06/03/16 15:45 Active 0.5 mg IVPUSH Q1H PRN Lactated Ringers [Ringers, Lactated] 1,000 ml Med 06/03/16 15:30 Active IV ASDIRECTED Losartan [Cozaar] Med 06/04/16 09:00 Active 100 mg PO DAILY Magnesium Oxide Med 06/04/16 09:00 Active 400 mg PO DAILY Multivitamins,Therapeutic [Thera] Med 06/04/16 09:00 Active 1 each PO DAILY Nicotine [Habitrol] Med 06/04/16 09:00 Active 14 mg TRDERM DAILY Ondansetron [Zofran] Med 06/03/16 15:45 Active 4 mg IVPUSH Q8H PRN Pantoprazole [ProTONIX] Med 06/04/16 07:00 Active 40 mg PO DAILY@0700 Propranolol [Inderal] Med 06/03/16 17:00 Active 40 mg PO QID Remove Patch Med 06/05/16 09:00 Active 0 ea TRDERM DAILY Sertraline [Zoloft] Med 06/04/16 09:00 Active 50 mg PO DAILY Simvastatin [Zocor] Med 06/03/16 21:00 Active 20 mg PO BEDTIME Tamsulosin [Flomax] Med 06/03/16 21:00 Active 0.4 mg PO BEDTIME amLODIPine [Norvasc] Med 06/04/16 09:00 Active 10 mg PO DAILY risperiDONE [RisperiDAL] Med 06/03/16 21:00 Active 1 mg PO BID Assertion Communication Order [AST] Click To Edit Oth 06/03/16 15:45 Ordered Pulse Oximetry Continuous Monitoring [OM.PC] Routine Oth 06/03/16 12:55 Active Sequential Compression Device [OM.PC] Routine Oth 06/03/16 16:18 Ordered Code Status [Resuscitation Status] Routine Resus Stat 06/03/16 18:34 Ordered Medication Orders Amlodipine Besylate (Norvasc) 10 mg PO DAILY [facility] Last Admin: 06/04/16 10:04 Dose: 10 mg Aspirin (Ecotrin) 325 mg PO DAILY [facility] Last Admin: 06/04/16 10:03 Dose: 325 mg Cholecalciferol (Vitamin D3) 2,000 units PO DAILY [facility] Last Admin: 06/04/16 10:03 Dose: 2,000 units Clonazepam (Klonopin) 1 mg PO TID [facility] Last Admin: 06/04/16 10:04 Dose: 1 mg Admin: 06/03/16 21:59 Dose: 1 mg Admin: 06/03/16 18:48 Dose: 1 mg Enoxaparin Sodium (Lovenox) 40 mg SUBCUT DAILY [facility] Last Admin: 06/04/16 10:04 Dose: 40 mg Hydromorphone HCl (Dilaudid) 0.5 mg IVPUSH Q1H PRN PRN Reason: Pain Last Admin: 06/04/16 08:52 Dose: 0.5 mg Admin: 06/04/16 02:13 Dose: 0.5 mg Admin: 06/03/16 22:01 Dose: 0.5 mg Admin: 06/03/16 17:30 Dose: 0.5 mg Lactated Ringer's (Ringers, Lactated) 1,000 mls @ 100 mls/hr IV ASDIRECTED [facility] Last Admin: 06/04/16 06:29 Dose: 100 mls/hr Infusion: 06/04/16 06:29 Dose: 100 mls/hr Admin: 06/03/16 21:10 Dose: 100 mls/hr Losartan Potassium (Cozaar) 100 mg PO DAILY [facility] Last Admin: 06/04/16 10:03 Dose: 100 mg Magnesium Oxide (Magnesium Oxide) 400 mg PO DAILY [facility] Miscellaneous Information (Remove Patch) 0 ea TRDERM DAILY [facility] Multivitamins (Thera) 1 each PO DAILY [facility] Last Admin: 06/04/16 10:03 Dose: 1 each Nicotine (Habitrol) 14 mg TRDERM DAILY [facility] Last Admin: 06/04/16 10:05 Dose: 14 mg Ondansetron HCl (Zofran) 4 mg IVPUSH Q8H PRN PRN Reason: Nausea Pantoprazole Sodium (Protonix) 40 mg PO DAILY@0700 [facility] Last Admin: 06/04/16 06:43 Dose: 40 mg Propranolol HCl (Inderal) 40 mg PO QID [facility] Last Admin: 06/04/16 10:02 Dose: 40 mg Admin: 06/03/16 21:59 Dose: 40 mg Admin: 06/03/16 18:48 Dose: 40 mg Risperidone (Risperidal) 1 mg PO BID [facility] Last Admin: 06/04/16 10:04 Dose: 1 mg Admin: 06/03/16 21:59 Dose: 1 mg Sertraline HCl (Zoloft) 50 mg PO DAILY [facility] Last Admin: 06/04/16 10:04 Dose: 50 mg Simvastatin (Zocor) 20 mg PO BEDTIME [facility] Last Admin: 06/03/16 21:59 Dose: 20 mg Sodium Chloride (Saline Flush) 10 ml FLUSH ASDIRECTED PRN PRN Reason: Keep Vein Open Last Admin: 06/04/16 08:53 Dose: 10 ml Tamsulosin HCl (Flomax) 0.4 mg PO BEDTIME [facility] Last Admin: 06/03/16 21:59 Dose: 0.4 mg - Plan Plan (Free Text/Narrative):: doing well lab reviewed abdomen soft plan remove from ICU continue present treatment LAURA
--- NOTE | 2016-06-04 10:58 | PCM.CONSN ---
- General Info Date of Service: 06/04/16 Subjective Update: patient did well overnight. He is requesting a nicotine patch. He does have any other complaints as mentioned below in review of systems. - Review of Systems General: Denies: Fever Pulmonary: Denies: shortness of breath, cough Cardiovascular: Denies: Chest Pain, Palpitations Gastrointestinal: Denies: Abdominal pain, Nausea - Patient Data Vitals - most recent: Last Vital Signs Temp 36.3 C 06/04/16 08:00 Pulse 71 06/04/16 04:00 Resp 19 06/04/16 08:00 BP 141/69 H 06/04/16 10:04 Pulse Ox 94 L 06/04/16 08:00 Weight - most recent: 80.467 kg I&O - last 24 hours: Intake & Output 06/03/16 06/04/16 06/04/16 22:59 06:59 14:59 Intake Total 1125 1366 Output Total 1600 100 800 Balance -475 1266 -800 Lab Results last 24 hrs: Laboratory Results - last 24 hr 06/03/16 06/04/16 06/04/16 Range/Units 08:51 06:35 06:35 WBC 11.00 H (4.23-9.07) K/mm3 RBC 3.73 L (4.63-6.08) M/mm3 Hgb 10.8 L (13.7-17.5) gm/L Hct 33.2 L (40.1-51.0) % MCV 89.0 (79.0-92.2) fl MCH 29.0 (25.7-32.2) pg MCHC 32.5 (32.2-35.5) g/dl RDW Std Deviation 40.6 (35.1-43.9) fL Plt Count 412 H (163-337) K/mm3 MPV 9.4 (9.4-12.3) fl Sodium 132 L (136-145) mEq/L Potassium 4.0 (3.5-5.1) mEq/L Chloride 99 (98-107) mEq/L Carbon Dioxide 26 (21-32) mEq/L Anion Gap 11.0 (5-15) BUN 5 L (7-18) mg/dL Creatinine 0.8 (0.7-1.3) mg/dL Est Cr Clr Drug Dosing 98.22 mL/min Estimated GFR (MDRD) > 60 (>60) mL/min BUN/Creatinine Ratio 6.3 L (14-18) Glucose 120 H (80-115) mg/dL Calcium 8.2 L (8.5-10.1) mg/dL Iron (65-175) ug/dL TIBC (100-400) ug/dL % Saturation (20-55) % Transferrin (202-364) mg/dL Total Bilirubin 0.5 (0.2-1.0) mg/dL AST 14 L (15-37) U/L ALT 24 (16-63) U/L Alkaline Phosphatase 80 (46-116) U/L Total Protein 5.8 L (6.4-8.2) g/dl Albumin 2.8 L (3.4-5.0) g/dl Globulin 3.0 gm/dL Albumin/Globulin Ratio 0.9 L (1-2) Vitamin B12 (193-986) pg/ml Folate (8.6-58.9) ng/mL Blood Type O POSITIVE Gel Antibody Screen Negative 06/04/16 Range/Units 06:35 WBC (4.23-9.07) K/mm3 RBC (4.63-6.08) M/mm3 Hgb (13.7-17.5) gm/L Hct (40.1-51.0) % MCV (79.0-92.2) fl MCH (25.7-32.2) pg MCHC (32.2-35.5) g/dl RDW Std Deviation (35.1-43.9) fL Plt Count (163-337) K/mm3 MPV (9.4-12.3) fl Sodium (136-145) mEq/L Potassium (3.5-5.1) mEq/L Chloride (98-107) mEq/L Carbon Dioxide (21-32) mEq/L Anion Gap (5-15) BUN (7-18) mg/dL Creatinine (0.7-1.3) mg/dL Est Cr Clr Drug Dosing mL/min Estimated GFR (MDRD) (>60) mL/min BUN/Creatinine Ratio (14-18) Glucose (80-115) mg/dL Calcium (8.5-10.1) mg/dL Iron 72 (65-175) ug/dL TIBC 261 (100-400) ug/dL % Saturation 28 (20-55) % Transferrin 209 (202-364) mg/dL Total Bilirubin (0.2-1.0) mg/dL AST (15-37) U/L ALT (16-63) U/L Alkaline Phosphatase (46-116) U/L Total Protein (6.4-8.2) g/dl Albumin (3.4-5.0) g/dl Globulin gm/dL Albumin/Globulin Ratio (1-2) Vitamin B12 3243 H (193-986) pg/ml Folate 14.6 (8.6-58.9) ng/mL Blood Type Gel Antibody Screen Med Orders - Current: Current Medications Amlodipine Besylate (Norvasc) 10 mg PO DAILY [facility] Last Admin: 06/04/16 10:04 Dose: 10 mg Aspirin (Ecotrin) 325 mg PO DAILY [facility] Last Admin: 06/04/16 10:03 Dose: 325 mg Cholecalciferol (Vitamin D3) 2,000 units PO DAILY [facility] Last Admin: 06/04/16 10:03 Dose: 2,000 units Clonazepam (Klonopin) 1 mg PO TID [facility] Last Admin: 06/04/16 10:04 Dose: 1 mg Enoxaparin Sodium (Lovenox) 40 mg SUBCUT DAILY [facility] Last Admin: 06/04/16 10:04 Dose: 40 mg Hydromorphone HCl (Dilaudid) 0.5 mg IVPUSH Q1H PRN PRN Reason: Pain Last Admin: 06/04/16 08:52 Dose: 0.5 mg Lactated Ringer's (Ringers, Lactated) 1,000 mls @ 100 mls/hr IV ASDIRECTED [facility] Last Admin: 06/04/16 06:29 Dose: 100 mls/hr Losartan Potassium (Cozaar) 100 mg PO DAILY [facility] Last Admin: 06/04/16 10:03 Dose: 100 mg Magnesium Oxide (Magnesium Oxide) 400 mg PO DAILY [facility] Miscellaneous Information (Remove Patch) 0 ea TRDERM DAILY [facility] Multivitamins (Thera) 1 each PO DAILY [facility] Last Admin: 06/04/16 10:03 Dose: 1 each Nicotine (Habitrol) 14 mg TRDERM DAILY [facility] Last Admin: 06/04/16 10:05 Dose: 14 mg Ondansetron HCl (Zofran) 4 mg IVPUSH Q8H PRN PRN Reason: Nausea Pantoprazole Sodium (Protonix) 40 mg PO DAILY@0700 [facility] Last Admin: 06/04/16 06:43 Dose: 40 mg Propranolol HCl (Inderal) 40 mg PO QID [facility] Last Admin: 06/04/16 10:02 Dose: 40 mg Risperidone (Risperidal) 1 mg PO BID [facility] Last Admin: 06/04/16 10:04 Dose: 1 mg Sertraline HCl (Zoloft) 50 mg PO DAILY [facility] Last Admin: 06/04/16 10:04 Dose: 50 mg Simvastatin (Zocor) 20 mg PO BEDTIME [facility] Last Admin: 06/03/16 21:59 Dose: 20 mg Sodium Chloride (Saline Flush) 10 ml FLUSH ASDIRECTED PRN PRN Reason: Keep Vein Open Last Admin: 06/04/16 08:53 Dose: 10 ml Tamsulosin HCl (Flomax) 0.4 mg PO BEDTIME [facility] Last Admin: 06/03/16 21:59 Dose: 0.4 mg Discontinued Medications Acetaminophen (Tylenol) 650 mg PO NOW STA Stop: 06/03/16 09:59 Last Admin: 06/03/16 10:09 Dose: 650 mg Albuterol (Proventil Hfa) Confirm Administered Dose 6.7 gm INH .STK-MED ONE Stop: 06/03/16 15:31 Bupivacaine HCl (Marcaine 0.25%) Confirm Administered Dose 30 ml .ROUTE .STK- MED ONE Stop: 06/03/16 08:39 Last Admin: 06/03/16 12:16 Dose: 2 ml Diphenhydramine HCl (Benadryl) 25 mg IVPUSH Q6H PRN PRN Reason: pruritis Stop: 06/03/16 18:00 Diphtheria/Tetanus/Acell Pertussis (Boostrix) 0.5 ml IM .ONCE ONE Stop: 06/03/16 17:23 Ephedrine Sulfate (Ephedrine In Ns) Confirm Administered Dose 25 mg .ROUTE .STK- MED ONE Stop: 06/03/16 11:56 Ephedrine Sulfate (Ephedrine In Ns) Confirm Administered Dose 25 mg .ROUTE .STK- MED ONE Stop: 06/03/16 13:23 Ephedrine Sulfate (Ephedrine In Ns) Confirm Administered Dose 25 mg .ROUTE .STK- MED ONE Stop: 06/03/16 13:44 Famotidine (Pepcid) 20 mg IVPUSH ONETIME ONE Stop: 06/03/16 09:58 Last Admin: 06/03/16 10:11 Dose: 20 mg Fentanyl (Sublimaze) Confirm Administered Dose 250 mcg .ROUTE .STK-MED ONE Stop: 06/03/16 07:56 Fentanyl (Sublimaze) Confirm Administered Dose 250 mcg .ROUTE .STK-MED ONE Stop: 06/03/16 12:59 Fentanyl (Sublimaze) 50 mcg IVPUSH Q5M PRN PRN Reason: Pain Stop: 06/03/16 18:00 Glycopyrrolate () Confirm Administered Dose 1 mg .ROUTE .STK-MED ONE Stop: 06/03/16 15:11 Hydromorphone HCl (Dilaudid) 0.5 mg IVPUSH Q15M PRN PRN Reason: severe pain Stop: 06/03/16 14:21 Hydromorphone HCl (Dilaudid) Confirm Administered Dose 1 mg .ROUTE .STK-MED ONE Stop: 06/03/16 14:19 Lactated Ringer's (Ringers, Lactated) 1,000 mls @ 125 mls/hr IV ASDIRECTED [facility] Last Admin: 06/03/16 09:42 Dose: 125 mls/hr Lidocaine HCl (Xylocaine-Mpf 1%) Confirm Administered Dose 4 mls @ as directed .ROUTE .STK-MED ONE Stop: 06/03/16 07:59 Octreotide Acetate 1,000 mcg/ (Sodium Chloride) 100 mls @ 25 mls/hr IV ONETIME OG Cefoxitin Sodium 2 gm/ Premix 50 mls @ 100 mls/hr IV ONETIME OG Stop: 06/03/16 23:59 Last Admin: 06/03/16 10:50 Dose: 100 mls/hr Octreotide Acetate 1,000 mcg/ (Sodium Chloride) 100 mls @ 25 mls/hr IV ONETIME OG Lactated Ringer's (Ringers, Lactated) Confirm Administered Dose 1,000 mls @ as directed .ROUTE .STK-MED ONE Stop: 06/03/16 14:18 Lactated Ringer's (Ringers, Lactated) Confirm Administered Dose 1,000 mls @ as directed .ROUTE .STK-MED ONE Stop: 06/03/16 14:18 Lactated Ringer's (Ringers, Lactated) Confirm Administered Dose 1,000 mls @ as directed .ROUTE .ST-MED ONE Stop: 06/03/16 14:18 Lactated Ringer's (Ringers, Lactated) Confirm Administered Dose 1,000 mls @ as directed .ROUTE .ST-MED ONE Stop: 06/03/16 14:18 Lactated Ringer's (Ringers, Lactated) Confirm Administered Dose 1,000 mls @ as directed .ROUTE .[facility]-MED ONE Stop: 06/03/16 15:06 Sodium Chloride (Normal Saline) Confirm Administered Dose 500 mls @ as directed .ROUTE .[facility] ONE Stop: 06/03/16 16:54 Last Admin: 06/03/16 17:14 Dose: 1 ml Ketamine HCl (Ketalar) Confirm Administered Dose 500 mg .ROUTE .ST-MED ONE Stop: 06/03/16 12:56 Ketorolac Tromethamine (Toradol) Confirm Administered Dose 30 mg .ROUTE .[facility]- MED ONE Stop: 06/03/16 15:15 Lidocaine/Sodium Bicarbonate (Buffered Lidocaine 1% In Ns 8.4%) 0.25 ml IV ONETIME PRN PRN Reason: Prior to IV Start Stop: 06/03/16 16:00 Last Admin: 06/03/16 08:35 Dose: 0.25 ml Midazolam HCl (Versed 1 Mg/Ml) Confirm Administered Dose 2 mg .ROUTE .ST-MED ONE Stop: 06/03/16 07:56 Neostigmine Methylsulfate (Neostigmine) Confirm Administered Dose 5 mg .ROUTE .[facility]-MED ONE Stop: 06/03/16 15:11 Ondansetron HCl (Zofran) 4 mg IVPUSH ONETIME ONE Stop: 06/03/16 09:56 Last Admin: 06/03/16 10:09 Dose: 4 mg Ondansetron HCl (Zofran) 4 mg IVPUSH ONETIME PRN PRN Reason: Nausea/Vomiting Stop: 06/03/16 18:00 Phenylephrine HCl (Phenylephrine In Ns 100 Mcg/Ml) Confirm Administered Dose 1 mg .ROUTE .ST-MED ONE Stop: 06/03/16 11:57 Phenylephrine HCl (Phenylephrine In Ns 100 Mcg/Ml) Confirm Administered Dose 1 mg .ROUTE .STK-MED ONE Stop: 06/03/16 13:38 Pneumococcal Polyvalent Vaccine (Pneumovax 23) 0.5 ml SUBCUT .ONCE ONE Stop: 06/04/16 08:00 Propofol (Diprivan 20 Ml) Confirm Administered Dose 400 mg .ROUTE .STK-MED ONE Stop: 06/03/16 07:56 Propofol (Diprivan 20 Ml) Confirm Administered Dose 200 mg .ROUTE .STK-MED ONE Stop: 06/03/16 15:06 Rocuronium [place] (Zemuron) Confirm Administered Dose 50 mg .ROUTE .STK-MED ONE Stop: 06/03/16 07:59 Rocuronium [place] (Zemuron) Confirm Administered Dose 50 mg .ROUTE .STK-MED ONE Stop: 06/03/16 14:51 - Exam Physical Findings Comments:: Vitals: as above General: alert and oriented. NAD Psych: Pleasant affect. more verbally communicative answering all questions this morning. calm. HEENT: normocephalic, atraumatic. EOMI Cardiac: Normal S1, S2. regular rate. No murmurs rubs, or gallops. No JVD noted. Lungs: CTAB. good air entry bilaterally. Abd: Soft, NT/ND. No HSM noted. Multiple new incision sites and dressing, which appear to be clear, dry, and intact. Skin: no new visible rashes or purpura noted Neuro: CN grossly intact. Strength intact and adequate bilaterally. Consult PN Assessment/Plan Procedures: Procedures ASSAY OF AMYLASE (09/13/15) ASSAY OF LIPASE (03/26/16) ASSAY OF MAGNESIUM (10/13/15) ASSAY OF TROPONIN QUANT (10/13/15) ASSAY THYROID STIM HORMONE (10/13/15) BLOOD GASES ANY COMBINATION (10/13/15) CHEST X-RAY 2VW FRONTAL&LATL (10/13/15) COMPLETE CBC W/AUTO DIFF WBC (03/26/16) COMPREHEN METABOLIC PANEL (03/26/16) CT ANGIO ABDOMINAL ARTERIES (06/16/15) ELECTROCARDIOGRAM TRACING (10/13/15) EMERGENCY DEPT VISIT (03/26/16) EMERGENCY DEPT VISIT (02/22/16) EMERGENCY DEPT VISIT (09/24/15) EMERGENCY DEPT VISIT (09/13/15) FIBRIN DEGRADATION QUANT (10/13/15) HELICOBACTER PYLORI ANTIBODY (02/22/16) HYDRATE IV INFUSION ADD-ON (10/11/15) ROUTINE VENIPUNCTURE (03/26/16) RPR S/N/AX/GEN/TRNK 2.5CM/< (02/22/16) THER/PROPH/DIAG INJ IV PUSH (10/11/15) TX/PRO/DX INJ NEW DRUG ADDON (10/11/15) TX/PRO/DX INJ SAME DRUG VAC PRESS OPERATOR (09/24/15) URINALYSIS AUTO W/O SCOPE (10/11/15) URINALYSIS AUTO W/SCOPE (03/26/16) WITHDRAWAL OF ARTERIAL BLOOD (10/13/15) X-RAY EXAM OF ABDOMEN (02/22/16) (1) HTN (hypertension) SNOMED Code(s): 77896165 Code(s): I10 - ESSENTIAL (PRIMARY) HYPERTENSION Current Visit: Yes Qualifiers: Hypertension type: unspecified secondary hypertension Qualified Code(s): I15.9 - Secondary hypertension, unspecified; I15 - Secondary hypertension (2) GERD (gastroesophageal reflux disease) SNOMED Code(s): 463152707 Code(s): K21.9 - GASTRO-ESOPHAGEAL REFLUX DISEASE WITHOUT ESOPHAGITIS Current Visit: Yes Qualifiers: Esophagitis presence: esophagitis presence not specified Qualified Code(s) : K21.9 - Gastro-esophageal reflux disease without esophagitis (3) PAD (peripheral artery disease) SNOMED Code(s): 145477821 Code(s): I73.9 - PERIPHERAL VASCULAR DISEASE, UNSPECIFIED Current Visit: Yes (4) Anxiety SNOMED Code(s): 38180324 Code(s): F41.9 - ANXIETY DISORDER, UNSPECIFIED Current Visit: No Problem List Initiated/Reviewed/Updated: Yes My Orders last 24 hours: My Active Orders 06/03/16 16:18 Antiembolic Devices [RC] PER UNIT ROUTINE Sequential Compression Device [OM.PC] Routine 06/03/16 17:00 ClonazePAM [KlonoPIN] 1 mg PO TID Propranolol [Inderal] 40 mg PO QID 06/03/16 21:00 Simvastatin [Zocor] 20 mg PO BEDTIME Tamsulosin [Flomax] 0.4 mg PO BEDTIME risperiDONE [RisperiDAL] 1 mg PO BID 06/04/16 06:35 FE, TIBC, TRANSFERRIN, FE SAT [CHEM] Routine FERRITIN [CHEM] Routine FOLIC ACID [CHEM] Routine VITAMIN B12 [CHEM] Routine 06/04/16 07:00 Pantoprazole [ProTONIX] 40 mg PO DAILY@0700 06/04/16 09:00 Aspirin [Ecotrin] 325 mg PO DAILY Cholecalciferol (Vitamin D3) [Vitamin D3] 2,000 units PO DAILY Enoxaparin [Lovenox] 40 mg SUBCUT DAILY Losartan [Cozaar] 100 mg PO DAILY Magnesium Oxide 400 mg PO DAILY Multivitamins,Therapeutic [Thera] 1 each PO DAILY Nicotine [Habitrol] 14 mg TRDERM DAILY Sertraline [Zoloft] 50 mg PO DAILY amLODIPine [Norvasc] 10 mg PO DAILY 06/05/16 09:00 Remove Patch 0 ea TRDERM DAILY 06/06/16 07:00 CBC W/O DIFF,HEMOGRAM [HEME] MOTH@0700 06/10/16 07:00 CBC W/O DIFF,HEMOGRAM [HEME] MOTH@0700 06/13/16 07:00 CBC W/O DIFF,HEMOGRAM [HEME] MOTH@0700 06/17/16 07:00 CBC W/O DIFF,HEMOGRAM [HEME] MOTH@0700 06/20/16 07:00 CBC W/O DIFF,HEMOGRAM [HEME] MOTH@0700 06/24/16 07:00 CBC W/O DIFF,HEMOGRAM [HEME] MOTH@0700 Plan: Large right cecal polyp, s/p Right hemicolectomy, POD#1 - Pain regimen per primary team; pain currently under control Severe intraoperative hypotension. Resolved with fluids, and octreotide. 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 BP has remained stable. Chronic medical conditions: Hypertension-continue ARB, and amlodipine. Prediabetes-hold metformin while in the hospital, no need for sliding scale insulin as HBA1c was 5.7% in Apr GERD-continue PPI PAD - would resume aspirin starting tomorrow, okay per Dr. Coy. Depression-continue SSRI BPH-continue off shailesh Hyperlipidemia-continue statin Anxiety-continue clonazepam Psychiatric comorbidities discontinue Risperdal I reconciled the medications as mentioned above and discussed case with Dr. Coy. DVT with SCDs, and patient to resume aspirin and start subcutaneous Lovenox today per Dr. Coy.
[2016-06-04] MEDS: Tamsulosin 0.4 MG Cap.ER PO SCH (20:10)
[2016-06-04] MEDS: Simvastatin 20 MG Tab PO SCH (20:10)
[2016-06-04] MEDS ORDERED: Acetaminophen/HYDROcodone 325-5 MG Tab PO PRN (22:11)
[2016-06-05] MEDS: Temazepam 15 MG Cap PO PRN (01:13)
[2016-06-05] MEDS: Multivitamins,Therapeutic Tab PO SCH (08:31)
[2016-06-05] MEDS: Aspirin 325 MG Tab.EC PO SCH (08:31)
[2016-06-05] MEDS: Propranolol 40 MG Tab PO SCH ×4 (08:31→20:38)
[2016-06-05] MEDS: ClonazePAM 1 MG Tab PO SCH ×3 (08:32→20:38)
[2016-06-05] MEDS: risperiDONE 1 MG Tab PO SCH ×2 (08:32→20:38)
[2016-06-05] MEDS: Sertraline 50 MG Tab PO SCH (08:32)
[2016-06-05] MEDS: Magnesium Oxide 400 MG Tab PO SCH (08:32)
[2016-06-05] MEDS: Enoxaparin 40 MG/0.4 ML Syringe SUBCUT SCH (08:32)
[2016-06-05] MEDS: amLODIPine 10 MG Tab PO SCH (08:32)
[2016-06-05] MEDS: Pantoprazole 40 MG Tab.CR PO SCH (08:32)
[2016-06-05] MEDS: Nicotine 14 MG/24 Hr Patch TRDERM SCH (08:33)
[2016-06-05] MEDS: Cholecalciferol (Vitamin D3) 1,000 Unit Tab PO SCH (08:33)
[2016-06-05] MEDS: Losartan 100 MG Tab PO SCH (08:33)
[2016-06-05] MEDS ORDERED: Iron Sucrose Complex 500 MG in Sodium Chloride 0.9% 250 ML IV ONE (09:30)
[2016-06-05] MEDS ORDERED: Sodium Chloride 0.9% 10 ML Syringe FLUSH PRN (11:41)
--- NOTE | 2016-06-05 11:47 | PCM.SURGPN ---
- General Info Date of Service: 06/05/16 POD#: 2 Functional Status: Reports: pain controlled - Review of Systems General: Reports: No Symptoms HEENT: Reports: no symptoms Pulmonary: Reports: no symptoms Cardiovascular: Reports: No Symptoms Gastrointestinal: Reports: No symptoms - Patient Data Vitals - most recent: Last Vital Signs Temp 98.1 F 06/05/16 08:05 Pulse 69 06/05/16 08:05 Resp 16 06/05/16 08:05 BP 116/74 06/05/16 08:33 Pulse Ox 98 06/05/16 08:05 Weight - most recent: 81.1 kg I&O - last 24 hours: Intake & Output 06/04/16 06/05/16 06/05/16 23:59 07:59 15:59 Intake Total 730 1200 Output Total 1100 800 Balance -370 400 Lab Results last 24 hrs: Laboratory Results - last 24 hr 06/04/16 Range/Units 06:35 Iron 72 (65-175) ug/dL TIBC 261 (100-400) ug/dL % Saturation 28 (20-55) % Transferrin 209 (202-364) mg/dL Ferritin 25 L (26-388) ng/ml Vitamin B12 3243 H (193-986) pg/ml Folate 14.6 (8.6-58.9) ng/mL Med Orders - Current: Current Medications Hydrocodone Bitart/Acetaminophen ([place] 325-5 Mg) 1 tab PO Q4H PRN PRN Reason: Abdominal Pain Last Admin: 06/05/16 01:13 Dose: 1 tab Hydrocodone Bitart/Acetaminophen ([place] 325-5 Mg) 1 tab PO Q6H PRN PRN Reason: Pain Amlodipine Besylate (Norvasc) 10 mg PO DAILY [facility] Last Admin: 06/05/16 08:32 Dose: 10 mg Aspirin (Ecotrin) 325 mg PO DAILY [facility] Last Admin: 06/05/16 08:31 Dose: 325 mg Cholecalciferol (Vitamin D3) 2,000 units PO DAILY [facility] Last Admin: 06/05/16 08:33 Dose: 2,000 units Clonazepam (Klonopin) 1 mg PO TID [facility] Last Admin: 06/05/16 08:32 Dose: 1 mg Enoxaparin Sodium (Lovenox) 40 mg SUBCUT DAILY [facility] Last Admin: 06/05/16 08:32 Dose: 40 mg Lactated Ringer's (Ringers, Lactated) 1,000 mls @ 100 mls/hr IV ASDIRECTED [facility] Last Admin: 06/04/16 16:31 Dose: 100 mls/hr Iron Sucrose 500 mg/ Sodium (Chloride) 275 mls @ 69 mls/hr IV ONETIME ONE Stop: 06/05/16 13:29 Last Admin: 06/05/16 10:19 Dose: 69 mls/hr Losartan Potassium (Cozaar) 100 mg PO DAILY [facility] Last Admin: 06/05/16 08:33 Dose: 100 mg Magnesium Oxide (Magnesium Oxide) 400 mg PO DAILY [facility] Last Admin: 06/05/16 08:32 Dose: 400 mg Miscellaneous Information (Remove Patch) 0 ea TRDERM DAILY [facility] Last Admin: 06/05/16 08:34 Dose: 1 ea Multivitamins (Thera) 1 each PO DAILY [facility] Last Admin: 06/05/16 08:31 Dose: 1 each Nicotine (Habitrol) 14 mg TRDERM DAILY [facility] Last Admin: 06/05/16 08:33 Dose: 14 mg Ondansetron HCl (Zofran) 4 mg IVPUSH Q8H PRN PRN Reason: Nausea Pantoprazole Sodium (Protonix) 40 mg PO DAILY@0700 [facility] Last Admin: 06/05/16 08:32 Dose: 40 mg Propranolol HCl (Inderal) 40 mg PO QID [facility] Last Admin: 06/05/16 08:31 Dose: 40 mg Risperidone (Risperidal) 1 mg PO BID [facility] Last Admin: 06/05/16 08:32 Dose: 1 mg Sertraline HCl (Zoloft) 50 mg PO DAILY [facility] Last Admin: 06/05/16 08:32 Dose: 50 mg Simvastatin (Zocor) 20 mg PO BEDTIME [facility] Last Admin: 06/04/16 20:10 Dose: 20 mg Sodium Chloride (Saline Flush) 10 ml FLUSH ASDIRECTED PRN PRN Reason: Keep Vein Open Last Admin: 06/04/16 08:53 Dose: 10 ml Sodium Chloride (Saline Flush) 10 ml FLUSH ASDIRECTED PRN PRN Reason: Keep Vein Open Tamsulosin HCl (Flomax) 0.4 mg PO BEDTIME [facility] Last Admin: 06/04/16 20:10 Dose: 0.4 mg Temazepam (Restoril) 15 mg PO BEDTIME PRN PRN Reason: Insomnia Last Admin: 06/05/16 01:13 Dose: 15 mg Discontinued Medications Acetaminophen (Tylenol) 650 mg PO NOW STA Stop: 06/03/16 09:59 Last Admin: 06/03/16 10:09 Dose: 650 mg Albuterol (Proventil Hfa) Confirm Administered Dose 6.7 gm INH .STK-MED ONE Stop: 06/03/16 15:31 Bupivacaine HCl (Marcaine 0.25%) Confirm Administered Dose 30 ml .ROUTE .STK- MED ONE Stop: 06/03/16 08:39 Last Admin: 06/03/16 12:16 Dose: 2 ml Diphenhydramine HCl (Benadryl) 25 mg IVPUSH Q6H PRN PRN Reason: pruritis Stop: 06/03/16 18:00 Diphtheria/Tetanus/Acell Pertussis (Boostrix) 0.5 ml IM .ONCE ONE Stop: 06/03/16 17:23 Ephedrine Sulfate (Ephedrine In Ns) Confirm Administered Dose 25 mg .ROUTE .STK- MED ONE Stop: 06/03/16 11:56 Ephedrine Sulfate (Ephedrine In Ns) Confirm Administered Dose 25 mg .ROUTE .STK- MED ONE Stop: 06/03/16 13:23 Ephedrine Sulfate (Ephedrine In Ns) Confirm Administered Dose 25 mg .ROUTE .STK- MED ONE Stop: 06/03/16 13:44 Famotidine (Pepcid) 20 mg IVPUSH ONETIME ONE Stop: 06/03/16 09:58 Last Admin: 06/03/16 10:11 Dose: 20 mg Fentanyl (Sublimaze) Confirm Administered Dose 250 mcg .ROUTE .STK-MED ONE Stop: 06/03/16 07:56 Fentanyl (Sublimaze) Confirm Administered Dose 250 mcg .ROUTE .STK-MED ONE Stop: 06/03/16 12:59 Fentanyl (Sublimaze) 50 mcg IVPUSH Q5M PRN PRN Reason: Pain Stop: 06/03/16 18:00 Glycopyrrolate () Confirm Administered Dose 1 mg .ROUTE .STK-MED ONE Stop: 06/03/16 15:11 Hydromorphone HCl (Dilaudid) 0.5 mg IVPUSH Q15M PRN PRN Reason: severe pain Stop: 06/03/16 14:21 Hydromorphone HCl (Dilaudid) Confirm Administered Dose 1 mg .ROUTE .STK-MED ONE Stop: 06/03/16 14:19 Hydromorphone HCl (Dilaudid) 0.5 mg IVPUSH Q1H PRN PRN Reason: Pain Last Admin: 06/04/16 20:10 Dose: 0.5 mg Lactated Ringer's (Ringers, Lactated) 1,000 mls @ 125 mls/hr IV ASDIRECTED OG Last Admin: 06/03/16 09:42 Dose: 125 mls/hr Lidocaine HCl (Xylocaine-Mpf 1%) Confirm Administered Dose 4 mls @ as directed .ROUTE .STK-MED ONE Stop: 06/03/16 07:59 Octreotide Acetate 1,000 mcg/ (Sodium Chloride) 100 mls @ 25 mls/hr IV ONETIME OG Cefoxitin Sodium 2 gm/ Premix 50 mls @ 100 mls/hr IV ONETIME OG Stop: 06/03/16 23:59 Last Admin: 06/03/16 10:50 Dose: 100 mls/hr Octreotide Acetate 1,000 mcg/ (Sodium Chloride) 100 mls @ 25 mls/hr IV ONETIME OG Lactated Ringer's (Ringers, Lactated) Confirm Administered Dose 1,000 mls @ as directed .ROUTE .STK-MED ONE Stop: 06/03/16 14:18 Lactated Ringer's (Ringers, Lactated) Confirm Administered Dose 1,000 mls @ as directed .ROUTE .STK-MED ONE Stop: 06/03/16 14:18 Lactated Ringer's (Ringers, Lactated) Confirm Administered Dose 1,000 mls @ as directed .ROUTE .STK-MED ONE Stop: 06/03/16 14:18 Lactated Ringer's (Ringers, Lactated) Confirm Administered Dose 1,000 mls @ as directed .ROUTE .STK-MED ONE Stop: 06/03/16 14:18 Lactated Ringer's (Ringers, Lactated) Confirm Administered Dose 1,000 mls @ as directed .ROUTE .STK-MED ONE Stop: 06/03/16 15:06 Sodium Chloride (Normal Saline) Confirm Administered Dose 500 mls @ as directed .ROUTE .STK-MED ONE Stop: 06/03/16 16:54 Last Admin: 06/03/16 17:14 Dose: 1 ml Ketamine HCl (Ketalar) Confirm Administered Dose 500 mg .ROUTE .STK-MED ONE Stop: 06/03/16 12:56 Ketorolac Tromethamine (Toradol) Confirm Administered Dose 30 mg .ROUTE .STK- MED ONE Stop: 06/03/16 15:15 Lidocaine/Sodium Bicarbonate (Buffered Lidocaine 1% In Ns 8.4%) 0.25 ml IV ONETIME PRN PRN Reason: Prior to IV Start Stop: 06/03/16 16:00 Last Admin: 06/03/16 08:35 Dose: 0.25 ml Midazolam HCl (Versed 1 Mg/Ml) Confirm Administered Dose 2 mg .ROUTE .STK-MED ONE Stop: 06/03/16 07:56 Neostigmine Methylsulfate (Neostigmine) Confirm Administered Dose 5 mg .ROUTE .STK-MED ONE Stop: 06/03/16 15:11 Ondansetron HCl (Zofran) 4 mg IVPUSH ONETIME ONE Stop: 06/03/16 09:56 Last Admin: 06/03/16 10:09 Dose: 4 mg Ondansetron HCl (Zofran) 4 mg IVPUSH ONETIME PRN PRN Reason: Nausea/Vomiting Stop: 06/03/16 18:00 Phenylephrine HCl (Phenylephrine In Ns 100 Mcg/Ml) Confirm Administered Dose 1 mg .ROUTE .STK-MED ONE Stop: 06/03/16 11:57 Phenylephrine HCl (Phenylephrine In Ns 100 Mcg/Ml) Confirm Administered Dose 1 mg .ROUTE .STK-MED ONE Stop: 06/03/16 13:38 Pneumococcal Polyvalent Vaccine (Pneumovax 23) 0.5 ml SUBCUT .ONCE ONE Stop: 06/04/16 08:00 Propofol (Diprivan 20 Ml) Confirm Administered Dose 400 mg .ROUTE .STK-MED ONE Stop: 06/03/16 07:56 Propofol (Diprivan 20 Ml) Confirm Administered Dose 200 mg .ROUTE .STK-MED ONE Stop: 06/03/16 15:06 Rocuronium [place] (Zemuron) Confirm Administered Dose 50 mg .ROUTE .STK-MED ONE Stop: 06/03/16 07:59 Rocuronium [place] (Zemuron) Confirm Administered Dose 50 mg .ROUTE .STK-MED ONE Stop: 06/03/16 14:51 - Exam Wound/Incisions: healing well General: alert, oriented Neck: supple Lungs: Clear to auscultation, Normal respiratory effort Cardiovascular: Regular Rate, Regular Rhythm Abdomen: bowel sounds present, soft, no tenderness, no distension - Problem List Review Problem List Initiated/Reviewed/Updated: Yes - My Orders Last 24 Hours: Active Orders 24 hr Category Date Time Status May Shower [RC] ASDIRECTED Care 06/05/16 11:44 Ordered Clear Liquid Diet [DIET] Diet 06/05/16 Dinner Ordered Nothing Per Oral Diet [DIET] Diet 06/04/16 Lunch Active CBC W/O DIFF,HEMOGRAM [HEME] MOTH@0700 Lab 06/06/16 07:00 Ordered CBC W/O DIFF,HEMOGRAM [HEME] MOTH@0700 Lab 06/10/16 07:00 Ordered CBC W/O DIFF,HEMOGRAM [HEME] MOTH@0700 Lab 06/13/16 07:00 Ordered CBC W/O DIFF,HEMOGRAM [HEME] MOTH@0700 Lab 06/17/16 07:00 Ordered CBC W/O DIFF,HEMOGRAM [HEME] MOTH@0700 Lab 06/20/16 07:00 Ordered CBC W/O DIFF,HEMOGRAM [HEME] MOTH@0700 Lab 06/24/16 07:00 Ordered CBC WITH AUTO DIFF [HEME] Routine Lab 06/06/16 07:00 Ordered COMPREHENSIVE METABOLIC PN,CMP [CHEM] Routine Lab 06/06/16 07:00 Ordered Acetaminophen/HYDROcodone [[place] 325-5 MG] Med 06/04/16 22:11 Active 1 tab PO Q4H PRN Acetaminophen/HYDROcodone [[place] 325-5 MG] Med 06/05/16 11:42 Ordered 1 tab PO Q6H PRN Iron Sucrose Complex [Venofer] 500 mg Med 06/05/16 09:30 Active Sodium Chloride 0.9% [Normal Saline] 250 ml IV ONETIME Remove Patch Med 06/05/16 09:00 Active 0 ea TRDERM DAILY Sodium Chloride 0.9% [Saline Flush] Med 06/05/16 11:41 Ordered 10 ml FLUSH ASDIRECTED PRN Temazepam [Restoril] Med 06/05/16 00:38 Active 15 mg PO BEDTIME PRN Convert IV to Saline Lock [OM.PC] Routine Oth 06/05/16 11:41 Ordered Medication Orders Hydrocodone Bitart/Acetaminophen ([place] 325-5 Mg) 1 tab PO Q4H PRN PRN Reason: Abdominal Pain Last Admin: 06/05/16 01:13 Dose: 1 tab Hydrocodone Bitart/Acetaminophen ([place] 325-5 Mg) 1 tab PO Q6H PRN PRN Reason: Pain Amlodipine Besylate (Norvasc) 10 mg PO DAILY [facility] Last Admin: 06/05/16 08:32 Dose: 10 mg Admin: 06/04/16 10:04 Dose: 10 mg Aspirin (Ecotrin) 325 mg PO DAILY [facility] Last Admin: 06/05/16 08:31 Dose: 325 mg Admin: 06/04/16 10:03 Dose: 325 mg Cholecalciferol (Vitamin D3) 2,000 units PO DAILY [facility] Last Admin: 06/05/16 08:33 Dose: 2,000 units Admin: 06/04/16 10:03 Dose: 2,000 units Clonazepam (Klonopin) 1 mg PO TID [facility] Last Admin: 06/05/16 08:32 Dose: 1 mg Admin: 06/04/16 20:10 Dose: 1 mg Admin: 06/04/16 14:19 Dose: 1 mg Admin: 06/04/16 10:04 Dose: 1 mg Admin: 06/03/16 21:59 Dose: 1 mg Admin: 06/03/16 18:48 Dose: 1 mg Enoxaparin Sodium (Lovenox) 40 mg SUBCUT DAILY [facility] Last Admin: 06/05/16 08:32 Dose: 40 mg Admin: 06/04/16 10:04 Dose: 40 mg Lactated Ringer's (Ringers, Lactated) 1,000 mls @ 100 mls/hr IV ASDIRECTED [facility] Last Admin: 06/04/16 16:31 Dose: 100 mls/hr Infusion: 06/04/16 16:29 Dose: 100 mls/hr Admin: 06/04/16 06:29 Dose: 100 mls/hr Infusion: 06/04/16 06:29 Dose: 100 mls/hr Admin: 06/03/16 21:10 Dose: 100 mls/hr Iron Sucrose 500 mg/ Sodium (Chloride) 275 mls @ 69 mls/hr IV ONETIME ONE Stop: 06/05/16 13:29 Last Admin: 06/05/16 10:19 Dose: 69 mls/hr Losartan Potassium (Cozaar) 100 mg PO DAILY [facility] Last Admin: 06/05/16 08:33 Dose: 100 mg Admin: 06/04/16 10:03 Dose: 100 mg Magnesium Oxide (Magnesium Oxide) 400 mg PO DAILY [facility] Last Admin: 06/05/16 08:32 Dose: 400 mg Admin: 06/04/16 10:02 Dose: 400 mg Miscellaneous Information (Remove Patch) 0 ea TRDERM DAILY [facility] Last Admin: 06/05/16 08:34 Dose: 1 ea Multivitamins (Thera) 1 each PO DAILY [facility] Last Admin: 06/05/16 08:31 Dose: 1 each Admin: 06/04/16 10:03 Dose: 1 each Nicotine (Habitrol) 14 mg TRDERM DAILY [facility] Last Admin: 06/05/16 08:33 Dose: 14 mg Admin: 06/04/16 10:05 Dose: 14 mg Ondansetron HCl (Zofran) 4 mg IVPUSH Q8H PRN PRN Reason: Nausea Pantoprazole Sodium (Protonix) 40 mg PO DAILY@0700 [facility] Last Admin: 06/05/16 08:32 Dose: 40 mg Admin: 06/04/16 06:43 Dose: 40 mg Propranolol HCl (Inderal) 40 mg PO QID [facility] Last Admin: 06/05/16 08:31 Dose: 40 mg Admin: 06/04/16 20:10 Dose: 40 mg Admin: 06/04/16 18:06 Dose: 40 mg Admin: 06/04/16 14:19 Dose: 40 mg Admin: 06/04/16 10:02 Dose: 40 mg Admin: 06/03/16 21:59 Dose: 40 mg Admin: 06/03/16 18:48 Dose: 40 mg Risperidone (Risperidal) 1 mg PO BID [facility] Last Admin: 06/05/16 08:32 Dose: 1 mg Admin: 06/04/16 20:10 Dose: 1 mg Admin: 06/04/16 10:04 Dose: 1 mg Admin: 06/03/16 21:59 Dose: 1 mg Sertraline HCl (Zoloft) 50 mg PO DAILY [facility] Last Admin: 06/05/16 08:32 Dose: 50 mg Admin: 06/04/16 10:04 Dose: 50 mg Simvastatin (Zocor) 20 mg PO BEDTIME OG Last Admin: 06/04/16 20:10 Dose: 20 mg Admin: 06/03/16 21:59 Dose: 20 mg Sodium Chloride (Saline Flush) 10 ml FLUSH ASDIRECTED PRN PRN Reason: Keep Vein Open Last Admin: 06/04/16 08:53 Dose: 10 ml Sodium Chloride (Saline Flush) 10 ml FLUSH ASDIRECTED PRN PRN Reason: Keep Vein Open Tamsulosin HCl (Flomax) 0.4 mg PO BEDTIME OG Last Admin: 06/04/16 20:10 Dose: 0.4 mg Admin: 06/03/16 21:59 Dose: 0.4 mg Temazepam (Restoril) 15 mg PO BEDTIME PRN PRN Reason: Insomnia Last Admin: 06/05/16 01:13 Dose: 15 mg - Plan Plan (Free Text/Narrative):: doing well plan advance diet and DC IV fluid LAURA
--- NOTE | 2016-06-05 12:36 | PCM.PN ---
- General Info Date of Service: 06/05/16 Admission Dx/Problem (Free Text): THIS IS A CONSULT PROGRESS NOTE Subjective Update: patient was tolerating ice chips history Dr. Coy is planning to advance diet, but continues to have some nausea abd abdominal pain. Pain is under control. on review of systems doesn't report any chest pain, shortness of breath. - Patient Data Vitals - most recent: Last Vital Signs Temp 36.8 C 06/05/16 12:16 Pulse 84 06/05/16 12:16 Resp 20 06/05/16 12:16 BP 153/64 H 06/05/16 12:16 Pulse Ox 97 06/05/16 12:16 Weight - most recent: 81.1 kg I&O - last 24 hours: Intake & Output 06/04/16 06/05/16 06/05/16 22:59 06:59 14:59 Intake Total 730 1200 Output Total 1500 800 Balance -770 400 Lab Results last 24 hrs: Laboratory Results - last 24 hr 06/04/16 Range/Units 06:35 Iron 72 (65-175) ug/dL TIBC 261 (100-400) ug/dL % Saturation 28 (20-55) % Transferrin 209 (202-364) mg/dL Ferritin 25 L (26-388) ng/ml Vitamin B12 3243 H (193-986) pg/ml Folate 14.6 (8.6-58.9) ng/mL Med Orders - Current: Current Medications Hydrocodone Bitart/Acetaminophen ([place] 325-5 Mg) 1 tab PO Q4H PRN PRN Reason: Abdominal Pain Last Admin: 06/05/16 01:13 Dose: 1 tab Hydrocodone Bitart/Acetaminophen ([place] 325-5 Mg) 1 tab PO Q6H PRN PRN Reason: Pain Amlodipine Besylate (Norvasc) 10 mg PO DAILY [facility] Last Admin: 06/05/16 08:32 Dose: 10 mg Aspirin (Ecotrin) 325 mg PO DAILY [facility] Last Admin: 06/05/16 08:31 Dose: 325 mg Cholecalciferol (Vitamin D3) 2,000 units PO DAILY [facility] Last Admin: 06/05/16 08:33 Dose: 2,000 units Clonazepam (Klonopin) 1 mg PO TID [facility] Last Admin: 06/05/16 08:32 Dose: 1 mg Enoxaparin Sodium (Lovenox) 40 mg SUBCUT DAILY [facility] Last Admin: 06/05/16 08:32 Dose: 40 mg Lactated Ringer's (Ringers, Lactated) 1,000 mls @ 100 mls/hr IV ASDIRECTED [facility] Last Admin: 06/04/16 16:31 Dose: 100 mls/hr Iron Sucrose 500 mg/ Sodium (Chloride) 275 mls @ 69 mls/hr IV ONETIME ONE Stop: 06/05/16 13:29 Last Admin: 06/05/16 10:19 Dose: 69 mls/hr Losartan Potassium (Cozaar) 100 mg PO DAILY [facility] Last Admin: 06/05/16 08:33 Dose: 100 mg Magnesium Oxide (Magnesium Oxide) 400 mg PO DAILY [facility] Last Admin: 06/05/16 08:32 Dose: 400 mg Miscellaneous Information (Remove Patch) 0 ea TRDERM DAILY [facility] Last Admin: 06/05/16 08:34 Dose: 1 ea Multivitamins (Thera) 1 each PO DAILY [facility] Last Admin: 06/05/16 08:31 Dose: 1 each Nicotine (Habitrol) 14 mg TRDERM DAILY [facility] Last Admin: 06/05/16 08:33 Dose: 14 mg Ondansetron HCl (Zofran) 4 mg IVPUSH Q8H PRN PRN Reason: Nausea Pantoprazole Sodium (Protonix) 40 mg PO DAILY@0700 [facility] Last Admin: 06/05/16 08:32 Dose: 40 mg Propranolol HCl (Inderal) 40 mg PO QID [facility] Last Admin: 06/05/16 08:31 Dose: 40 mg Risperidone (Risperidal) 1 mg PO BID [facility] Last Admin: 06/05/16 08:32 Dose: 1 mg Sertraline HCl (Zoloft) 50 mg PO DAILY [facility] Last Admin: 06/05/16 08:32 Dose: 50 mg Simvastatin (Zocor) 20 mg PO BEDTIME [facility] Last Admin: 06/04/16 20:10 Dose: 20 mg Sodium Chloride (Saline Flush) 10 ml FLUSH ASDIRECTED PRN PRN Reason: Keep Vein Open Last Admin: 06/04/16 08:53 Dose: 10 ml Sodium Chloride (Saline Flush) 10 ml FLUSH ASDIRECTED PRN PRN Reason: Keep Vein Open Tamsulosin HCl (Flomax) 0.4 mg PO BEDTIME [facility] Last Admin: 06/04/16 20:10 Dose: 0.4 mg Temazepam (Restoril) 15 mg PO BEDTIME PRN PRN Reason: Insomnia Last Admin: 06/05/16 01:13 Dose: 15 mg Discontinued Medications Acetaminophen (Tylenol) 650 mg PO NOW STA Stop: 06/03/16 09:59 Last Admin: 06/03/16 10:09 Dose: 650 mg Albuterol (Proventil Hfa) Confirm Administered Dose 6.7 gm INH .STK-MED ONE Stop: 06/03/16 15:31 Bupivacaine HCl (Marcaine 0.25%) Confirm Administered Dose 30 ml .ROUTE .STK- MED ONE Stop: 06/03/16 08:39 Last Admin: 06/03/16 12:16 Dose: 2 ml Diphenhydramine HCl (Benadryl) 25 mg IVPUSH Q6H PRN PRN Reason: pruritis Stop: 06/03/16 18:00 Diphtheria/Tetanus/Acell Pertussis (Boostrix) 0.5 ml IM .ONCE ONE Stop: 06/03/16 17:23 Ephedrine Sulfate (Ephedrine In Ns) Confirm Administered Dose 25 mg .ROUTE .STK- MED ONE Stop: 06/03/16 11:56 Ephedrine Sulfate (Ephedrine In Ns) Confirm Administered Dose 25 mg .ROUTE .STK- MED ONE Stop: 06/03/16 13:23 Ephedrine Sulfate (Ephedrine In Ns) Confirm Administered Dose 25 mg .ROUTE .STK- MED ONE Stop: 06/03/16 13:44 Famotidine (Pepcid) 20 mg IVPUSH ONETIME ONE Stop: 06/03/16 09:58 Last Admin: 06/03/16 10:11 Dose: 20 mg Fentanyl (Sublimaze) Confirm Administered Dose 250 mcg .ROUTE .STK-MED ONE Stop: 06/03/16 07:56 Fentanyl (Sublimaze) Confirm Administered Dose 250 mcg .ROUTE .STK-MED ONE Stop: 06/03/16 12:59 Fentanyl (Sublimaze) 50 mcg IVPUSH Q5M PRN PRN Reason: Pain Stop: 06/03/16 18:00 Glycopyrrolate () Confirm Administered Dose 1 mg .ROUTE .STK-MED ONE Stop: 06/03/16 15:11 Hydromorphone HCl (Dilaudid) 0.5 mg IVPUSH Q15M PRN PRN Reason: severe pain Stop: 06/03/16 14:21 Hydromorphone HCl (Dilaudid) Confirm Administered Dose 1 mg .ROUTE .STK-MED ONE Stop: 06/03/16 14:19 Hydromorphone HCl (Dilaudid) 0.5 mg IVPUSH Q1H PRN PRN Reason: Pain Last Admin: 06/04/16 20:10 Dose: 0.5 mg Lactated Ringer's (Ringers, Lactated) 1,000 mls @ 125 mls/hr IV ASDIRECTED OG Last Admin: 06/03/16 09:42 Dose: 125 mls/hr Lidocaine HCl (Xylocaine-Mpf 1%) Confirm Administered Dose 4 mls @ as directed .ROUTE .STK-MED ONE Stop: 06/03/16 07:59 Octreotide Acetate 1,000 mcg/ (Sodium Chloride) 100 mls @ 25 mls/hr IV ONETIME OG Cefoxitin Sodium 2 gm/ Premix 50 mls @ 100 mls/hr IV ONETIME OG Stop: 06/03/16 23:59 Last Admin: 06/03/16 10:50 Dose: 100 mls/hr Octreotide Acetate 1,000 mcg/ (Sodium Chloride) 100 mls @ 25 mls/hr IV ONETIME OG Lactated Ringer's (Ringers, Lactated) Confirm Administered Dose 1,000 mls @ as directed .ROUTE .STK-MED ONE Stop: 06/03/16 14:18 Lactated Ringer's (Ringers, Lactated) Confirm Administered Dose 1,000 mls @ as directed .ROUTE .STK-MED ONE Stop: 06/03/16 14:18 Lactated Ringer's (Ringers, Lactated) Confirm Administered Dose 1,000 mls @ as directed .ROUTE .STK-MED ONE Stop: 06/03/16 14:18 Lactated Ringer's (Ringers, Lactated) Confirm Administered Dose 1,000 mls @ as directed .ROUTE .STK-MED ONE Stop: 06/03/16 14:18 Lactated Ringer's (Ringers, Lactated) Confirm Administered Dose 1,000 mls @ as directed .ROUTE .STK-MED ONE Stop: 06/03/16 15:06 Sodium Chloride (Normal Saline) Confirm Administered Dose 500 mls @ as directed .ROUTE .STK-MED ONE Stop: 06/03/16 16:54 Last Admin: 06/03/16 17:14 Dose: 1 ml Ketamine HCl (Ketalar) Confirm Administered Dose 500 mg .ROUTE .STK-MED ONE Stop: 06/03/16 12:56 Ketorolac Tromethamine (Toradol) Confirm Administered Dose 30 mg .ROUTE .STK- MED ONE Stop: 06/03/16 15:15 Lidocaine/Sodium Bicarbonate (Buffered Lidocaine 1% In Ns 8.4%) 0.25 ml IV ONETIME PRN PRN Reason: Prior to IV Start Stop: 06/03/16 16:00 Last Admin: 06/03/16 08:35 Dose: 0.25 ml Midazolam HCl (Versed 1 Mg/Ml) Confirm Administered Dose 2 mg .ROUTE .STK-MED ONE Stop: 06/03/16 07:56 Neostigmine Methylsulfate (Neostigmine) Confirm Administered Dose 5 mg .ROUTE .STK-MED ONE Stop: 06/03/16 15:11 Ondansetron HCl (Zofran) 4 mg IVPUSH ONETIME ONE Stop: 06/03/16 09:56 Last Admin: 06/03/16 10:09 Dose: 4 mg Ondansetron HCl (Zofran) 4 mg IVPUSH ONETIME PRN PRN Reason: Nausea/Vomiting Stop: 06/03/16 18:00 Phenylephrine HCl (Phenylephrine In Ns 100 Mcg/Ml) Confirm Administered Dose 1 mg .ROUTE .STK-MED ONE Stop: 06/03/16 11:57 Phenylephrine HCl (Phenylephrine In Ns 100 Mcg/Ml) Confirm Administered Dose 1 mg .ROUTE .STK-MED ONE Stop: 06/03/16 13:38 Pneumococcal Polyvalent Vaccine (Pneumovax 23) 0.5 ml SUBCUT .ONCE ONE Stop: 06/04/16 08:00 Propofol (Diprivan 20 Ml) Confirm Administered Dose 400 mg .ROUTE .STK-MED ONE Stop: 06/03/16 07:56 Propofol (Diprivan 20 Ml) Confirm Administered Dose 200 mg .ROUTE .STK-MED ONE Stop: 06/03/16 15:06 Rocuronium [place] (Zemuron) Confirm Administered Dose 50 mg .ROUTE .STK-MED ONE Stop: 06/03/16 07:59 Rocuronium [place] (Zemuron) Confirm Administered Dose 50 mg .ROUTE .STK-MED ONE Stop: 06/03/16 14:51 - Exam Physical Findings Comments:: Vitals: as above General: alert and oriented. NAD Psych: Pleasant affect. calm. HEENT: normocephalic, atraumatic. EOMI Cardiac: Normal S1, S2. regular rate. No murmurs rubs, or gallops. No JVD noted. Lungs: CTAB. good air entry bilaterally. Abd: Soft, NT/ND. No HSM noted. Multiple new incision site and dressing, which appear to be clear, dry, and intact. Skin: no new visible rashes or purpura noted Neuro: CN grossly intact. Strength intact and adequate bilaterally. - Problem List & Annotations (1) HTN (hypertension) SNOMED Code(s): 37312416 Code(s): I10 - ESSENTIAL (PRIMARY) HYPERTENSION Status: Acute Current Visit: Yes Qualifiers: Hypertension type: unspecified secondary hypertension Qualified Code(s): I15.9 - Secondary hypertension, unspecified; I15 - Secondary hypertension (2) GERD (gastroesophageal reflux disease) SNOMED Code(s): 163741602 Code(s): K21.9 - GASTRO-ESOPHAGEAL REFLUX DISEASE WITHOUT ESOPHAGITIS Status: Acute Current Visit: Yes Qualifiers: Esophagitis presence: esophagitis presence not specified Qualified Code(s) : K21.9 - Gastro-esophageal reflux disease without esophagitis (3) PAD (peripheral artery disease) SNOMED Code(s): 650270586 Code(s): I73.9 - PERIPHERAL VASCULAR DISEASE, UNSPECIFIED Status: Acute Current Visit: Yes (4) Anxiety SNOMED Code(s): 49218701 Code(s): F41.9 - ANXIETY DISORDER, UNSPECIFIED Status: Acute Current Visit: No - Problem List Review Problem List Initiated/Reviewed/Updated: Yes - My Orders Last 24 Hours: My Active Orders 06/04/16 22:11 Acetaminophen/HYDROcodone [[place] 325-5 MG] 1 tab PO Q4H PRN 06/05/16 00:38 Temazepam [Restoril] 15 mg PO BEDTIME PRN 06/05/16 09:00 Remove Patch 0 ea TRDERM DAILY 06/05/16 09:30 Iron Sucrose Complex [Venofer] 500 mg Sodium Chloride 0.9% [Normal Saline] 250 ml IV ONETIME 06/06/16 07:00 CBC W/O DIFF,HEMOGRAM [HEME] MOTH@69906/10/16 07:00 CBC W/O DIFF,HEMOGRAM [HEME] MOTH@69906/13/16 07:00 CBC W/O DIFF,HEMOGRAM [HEME] MOTH@69906/17/16 07:00 CBC W/O DIFF,HEMOGRAM [HEME] MOTH@69906/20/16 07:00 CBC W/O DIFF,HEMOGRAM [HEME] MOTH@69906/24/16 07:00 CBC W/O DIFF,HEMOGRAM [HEME] MOTH@699 - Plan Plan:: Large right cecal polyp, s/p Right hemicolectomy, POD#2 - Pain regimen per primary team; pain currently under control - stopped IVF and advancing diet as tolerated Severe intraoperative hypotension. Resolved with fluids, and octreotide. 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 BP has remained stable. Chronic medical conditions: Hypertension-continue ARB, and amlodipine. Prediabetes-hold metformin while in the hospital, no need for sliding scale insulin as HBA1c was 5.7% in Apr GERD-continue PPI PAD - cont aspirin Depression-continue SSRI BPH-continue off shailesh Hyperlipidemia-continue statin Anxiety-continue clonazepam Psychiatric comorbidities discontinue Risperdal I reconciled the medications as mentioned above and discussed case with Dr. Coy. DVT with SCDs, and patient to resume aspirin and start subcutaneous Lovenox per Dr. Coy.
[2016-06-05] MEDS: Acetaminophen/HYDROcodone 325-5 MG Tab PO PRN (12:51)
[2016-06-05] MEDS ORDERED: Acetaminophen 325 MG Tab PO PRN (19:47)
[2016-06-05] MEDS: Simvastatin 20 MG Tab PO SCH (20:38)
[2016-06-05] MEDS: Tamsulosin 0.4 MG Cap.ER PO SCH (20:38)
[2016-06-06] MEDS: Pantoprazole 40 MG Tab.CR PO SCH (06:33)
[2016-06-06] MEDS: Losartan 100 MG Tab PO SCH (08:04)
[2016-06-06] MEDS: Nicotine 14 MG/24 Hr Patch TRDERM SCH (08:05)
[2016-06-06] MEDS: Aspirin 325 MG Tab.EC PO SCH (08:05)
[2016-06-06] MEDS: Propranolol 40 MG Tab PO SCH ×4 (08:05→21:09)
[2016-06-06] MEDS: amLODIPine 10 MG Tab PO SCH (08:06)
[2016-06-06] MEDS: Magnesium Oxide 400 MG Tab PO SCH (08:06)
[2016-06-06] MEDS: Enoxaparin 40 MG/0.4 ML Syringe SUBCUT SCH (08:06)
[2016-06-06] MEDS: ClonazePAM 1 MG Tab PO SCH ×3 (08:06→21:09)
[2016-06-06] MEDS: Cholecalciferol (Vitamin D3) 1,000 Unit Tab PO SCH (08:07)
[2016-06-06] MEDS: Sertraline 50 MG Tab PO SCH (08:07)
[2016-06-06] MEDS: Multivitamins,Therapeutic Tab PO SCH (08:07)
[2016-06-06] MEDS: risperiDONE 1 MG Tab PO SCH ×2 (08:07→21:09)
[2016-06-06] MEDS: Acetaminophen/HYDROcodone 325-5 MG Tab PO PRN (08:07)
[2016-06-06] MEDS: Potassium Chloride 10% 20 MEQ/15 ML Soln 30 ML UD Cup PO SCH ×2 (09:18→14:46)
--- NOTE | 2016-06-06 10:55 | PCM.CONSN ---
- General Info Date of Service: 06/06/16 Subjective Update: Patient continues to do well overnight. He does not report any new symptoms. He is tolerating his liquid diet. - Review of Systems General: Denies: Fever Pulmonary: Denies: shortness of breath Cardiovascular: Denies: Chest Pain Gastrointestinal: Denies: Abdominal pain, Constipation, Nausea, Vomiting - Patient Data Vitals - most recent: Last Vital Signs Temp 36.9 C 06/06/16 07:55 Pulse 77 06/06/16 07:55 Resp 20 06/06/16 07:55 BP 154/80 H 06/06/16 08:06 Pulse Ox 95 06/06/16 07:55 Weight - most recent: 75.432 kg I&O - last 24 hours: Intake & Output 06/05/16 06/06/16 06/06/16 22:59 06:59 14:59 Intake Total 1260 500 Output Total 900 2050 Balance 360 -1550 Lab Results last 24 hrs: Laboratory Results - last 24 hr 06/06/16 06/06/16 Range/Units 05:50 05:50 WBC 9.91 H (4.23-9.07) K/mm3 RBC 3.65 L (4.63-6.08) M/mm3 Hgb 10.7 L (13.7-17.5) gm/L Hct 32.6 L (40.1-51.0) % MCV 89.3 (79.0-92.2) fl MCH 29.3 (25.7-32.2) pg MCHC 32.8 (32.2-35.5) g/dl RDW Std Deviation 40.3 (35.1-43.9) fL Plt Count 435 H (163-337) K/mm3 MPV 9.4 (9.4-12.3) fl Neut % (Auto) 68.1 H (34.0-67.9) % Lymph % (Auto) 18.3 L (21.8-53.1) % [place] % (Auto) 9.8 (5.3-12.2) % Eos % (Auto) 3.1 (0.8-7.0) Baso % (Auto) 0.3 (0.1-1.2) % Neut # (Auto) 6.75 H (1.78-5.38) K/mm3 Lymph # (Auto) 1.81 (1.32-3.57) K/mm3 [place] # (Auto) 0.97 H (0.30-0.82) K/mm3 Eos # (Auto) 0.31 (0.04-0.54) K/mm3 Baso # (Auto) 0.03 (0.01-0.08) K/mm3 Sodium 140 (136-145) mEq/L Potassium 3.0 L (3.5-5.1) mEq/L Chloride 104 (98-107) mEq/L Carbon Dioxide 25 (21-32) mEq/L Anion Gap 14.0 (5-15) BUN 8 (7-18) mg/dL Creatinine 0.8 (0.7-1.3) mg/dL Est Cr Clr Drug Dosing 96.91 mL/min Estimated GFR (MDRD) > 60 (>60) mL/min BUN/Creatinine Ratio 10.0 L (14-18) Glucose 89 (80-115) mg/dL Calcium 8.5 (8.5-10.1) mg/dL Total Bilirubin 0.4 (0.2-1.0) mg/dL AST 19 (15-37) U/L ALT 24 (16-63) U/L Alkaline Phosphatase 72 (46-116) U/L Total Protein 6.1 L (6.4-8.2) g/dl Albumin 2.9 L (3.4-5.0) g/dl Globulin 3.2 gm/dL Albumin/Globulin Ratio 0.9 L (1-2) Med Orders - Current: Current Medications Acetaminophen (Tylenol) 650 mg PO Q4H PRN PRN Reason: Pain Last Admin: 06/05/16 20:43 Dose: 650 mg Hydrocodone Bitart/Acetaminophen ([place] 325-5 Mg) 1 tab PO Q6H PRN PRN Reason: Pain Last Admin: 06/06/16 08:07 Dose: 1 tab Amlodipine Besylate (Norvasc) 10 mg PO DAILY [facility] Last Admin: 06/06/16 08:06 Dose: 10 mg Aspirin (Ecotrin) 325 mg PO DAILY [facility] Last Admin: 06/06/16 08:05 Dose: 325 mg Cholecalciferol (Vitamin D3) 2,000 units PO DAILY [facility] Last Admin: 06/06/16 08:07 Dose: 2,000 units Clonazepam (Klonopin) 1 mg PO TID [facility] Last Admin: 06/06/16 08:06 Dose: 1 mg Enoxaparin Sodium (Lovenox) 40 mg SUBCUT DAILY [facility] Last Admin: 06/06/16 08:06 Dose: 40 mg Losartan Potassium (Cozaar) 100 mg PO DAILY [facility] Last Admin: 06/06/16 08:04 Dose: 100 mg Magnesium Oxide (Magnesium Oxide) 400 mg PO DAILY [facility] Last Admin: 06/06/16 08:06 Dose: 400 mg Miscellaneous Information (Remove Patch) 0 ea TRDERM DAILY [facility] Last Admin: 06/06/16 08:07 Dose: 1 ea Multivitamins (Thera) 1 each PO DAILY [facility] Last Admin: 06/06/16 08:07 Dose: 1 each Nicotine (Habitrol) 14 mg TRDERM DAILY [facility] Last Admin: 06/06/16 08:05 Dose: 14 mg Ondansetron HCl (Zofran) 4 mg IVPUSH Q8H PRN PRN Reason: Nausea Pantoprazole Sodium (Protonix) 40 mg PO DAILY@0700 [facility] Last Admin: 06/06/16 06:33 Dose: 40 mg Potassium Chloride (Potassium Chloride) 40 meq PO TID [facility] Stop: 06/06/16 15:01 Last Admin: 06/06/16 09:18 Dose: 40 meq Propranolol HCl (Inderal) 40 mg PO QID [facility] Last Admin: 06/06/16 08:05 Dose: 40 mg Risperidone (Risperidal) 1 mg PO BID [facility] Last Admin: 06/06/16 08:07 Dose: 1 mg Sertraline HCl (Zoloft) 50 mg PO DAILY [facility] Last Admin: 06/06/16 08:07 Dose: 50 mg Simvastatin (Zocor) 20 mg PO BEDTIME [facility] Last Admin: 06/05/16 20:38 Dose: 20 mg Sodium Chloride (Saline Flush) 10 ml FLUSH ASDIRECTED PRN PRN Reason: Keep Vein Open Last Admin: 06/04/16 08:53 Dose: 10 ml Sodium Chloride (Saline Flush) 10 ml FLUSH ASDIRECTED PRN PRN Reason: Keep Vein Open Tamsulosin HCl (Flomax) 0.4 mg PO BEDTIME [facility] Last Admin: 06/05/16 20:38 Dose: 0.4 mg Temazepam (Restoril) 15 mg PO BEDTIME PRN PRN Reason: Insomnia Last Admin: 06/05/16 01:13 Dose: 15 mg Discontinued Medications Acetaminophen (Tylenol) 650 mg PO NOW STA Stop: 06/03/16 09:59 Last Admin: 06/03/16 10:09 Dose: 650 mg Hydrocodone Bitart/Acetaminophen ([place] 325-5 Mg) 1 tab PO Q4H PRN PRN Reason: Abdominal Pain Last Admin: 06/05/16 01:13 Dose: 1 tab Albuterol (Proventil Hfa) Confirm Administered Dose 6.7 gm INH .STK-MED ONE Stop: 06/03/16 15:31 Bupivacaine HCl (Marcaine 0.25%) Confirm Administered Dose 30 ml .ROUTE .STK- MED ONE Stop: 06/03/16 08:39 Last Admin: 06/03/16 12:16 Dose: 2 ml Diphenhydramine HCl (Benadryl) 25 mg IVPUSH Q6H PRN PRN Reason: pruritis Stop: 06/03/16 18:00 Diphtheria/Tetanus/Acell Pertussis (Boostrix) 0.5 ml IM .ONCE ONE Stop: 06/03/16 17:23 Ephedrine Sulfate (Ephedrine In Ns) Confirm Administered Dose 25 mg .ROUTE .STK- MED ONE Stop: 06/03/16 11:56 Ephedrine Sulfate (Ephedrine In Ns) Confirm Administered Dose 25 mg .ROUTE .STK- MED ONE Stop: 06/03/16 13:23 Ephedrine Sulfate (Ephedrine In Ns) Confirm Administered Dose 25 mg .ROUTE .STK- MED ONE Stop: 06/03/16 13:44 Famotidine (Pepcid) 20 mg IVPUSH ONETIME ONE Stop: 06/03/16 09:58 Last Admin: 06/03/16 10:11 Dose: 20 mg Fentanyl (Sublimaze) Confirm Administered Dose 250 mcg .ROUTE .STK-MED ONE Stop: 06/03/16 07:56 Fentanyl (Sublimaze) Confirm Administered Dose 250 mcg .ROUTE .STK-MED ONE Stop: 06/03/16 12:59 Fentanyl (Sublimaze) 50 mcg IVPUSH Q5M PRN PRN Reason: Pain Stop: 06/03/16 18:00 Glycopyrrolate () Confirm Administered Dose 1 mg .ROUTE .STK-MED ONE Stop: 06/03/16 15:11 Hydromorphone HCl (Dilaudid) 0.5 mg IVPUSH Q15M PRN PRN Reason: severe pain Stop: 06/03/16 14:21 Hydromorphone HCl (Dilaudid) Confirm Administered Dose 1 mg .ROUTE .STK-MED ONE Stop: 06/03/16 14:19 Hydromorphone HCl (Dilaudid) 0.5 mg IVPUSH Q1H PRN PRN Reason: Pain Last Admin: 06/04/16 20:10 Dose: 0.5 mg Lactated Ringer's (Ringers, Lactated) 1,000 mls @ 125 mls/hr IV ASDIRECTED OG Last Admin: 06/03/16 09:42 Dose: 125 mls/hr Lidocaine HCl (Xylocaine-Mpf 1%) Confirm Administered Dose 4 mls @ as directed .ROUTE .STK-MED ONE Stop: 06/03/16 07:59 Octreotide Acetate 1,000 mcg/ (Sodium Chloride) 100 mls @ 25 mls/hr IV ONETIME OG Cefoxitin Sodium 2 gm/ Premix 50 mls @ 100 mls/hr IV ONETIME OG Stop: 06/03/16 23:59 Last Admin: 06/03/16 10:50 Dose: 100 mls/hr Octreotide Acetate 1,000 mcg/ (Sodium Chloride) 100 mls @ 25 mls/hr IV ONETIME OG Lactated Ringer's (Ringers, Lactated) Confirm Administered Dose 1,000 mls @ as directed .ROUTE .STK-MED ONE Stop: 06/03/16 14:18 Lactated Ringer's (Ringers, Lactated) Confirm Administered Dose 1,000 mls @ as directed .ROUTE .STK-MED ONE Stop: 06/03/16 14:18 Lactated Ringer's (Ringers, Lactated) Confirm Administered Dose 1,000 mls @ as directed .ROUTE .STK-MED ONE Stop: 06/03/16 14:18 Lactated Ringer's (Ringers, Lactated) Confirm Administered Dose 1,000 mls @ as directed .ROUTE .STK-MED ONE Stop: 06/03/16 14:18 Lactated Ringer's (Ringers, Lactated) Confirm Administered Dose 1,000 mls @ as directed .ROUTE .STK-MED ONE Stop: 06/03/16 15:06 Lactated Ringer's (Ringers, Lactated) 1,000 mls @ 100 mls/hr IV ASDIRECTED OG Last Admin: 06/04/16 16:31 Dose: 100 mls/hr Sodium Chloride (Normal Saline) Confirm Administered Dose 500 mls @ as directed .ROUTE .STK-MED ONE Stop: 06/03/16 16:54 Last Admin: 06/03/16 17:14 Dose: 1 ml Iron Sucrose 500 mg/ Sodium (Chloride) 275 mls @ 69 mls/hr IV ONETIME ONE Stop: 06/05/16 13:29 Last Admin: 06/05/16 10:19 Dose: 69 mls/hr Ketamine HCl (Ketalar) Confirm Administered Dose 500 mg .ROUTE .STK-MED ONE Stop: 06/03/16 12:56 Ketorolac Tromethamine (Toradol) Confirm Administered Dose 30 mg .ROUTE .STK- MED ONE Stop: 06/03/16 15:15 Lidocaine/Sodium Bicarbonate (Buffered Lidocaine 1% In Ns 8.4%) 0.25 ml IV ONETIME PRN PRN Reason: Prior to IV Start Stop: 06/03/16 16:00 Last Admin: 06/03/16 08:35 Dose: 0.25 ml Midazolam HCl (Versed 1 Mg/Ml) Confirm Administered Dose 2 mg .ROUTE .STK-MED ONE Stop: 06/03/16 07:56 Neostigmine Methylsulfate (Neostigmine) Confirm Administered Dose 5 mg .ROUTE .STK-MED ONE Stop: 06/03/16 15:11 Octreotide Acetate (Sandostatin) 300 mcg .ROUTE .STK-MED ONE Stop: 06/03/16 11:01 Ondansetron HCl (Zofran) 4 mg IVPUSH ONETIME ONE Stop: 06/03/16 09:56 Last Admin: 06/03/16 10:09 Dose: 4 mg Ondansetron HCl (Zofran) 4 mg IVPUSH ONETIME PRN PRN Reason: Nausea/Vomiting Stop: 06/03/16 18:00 Phenylephrine HCl (Phenylephrine In Ns 100 Mcg/Ml) Confirm Administered Dose 1 mg .ROUTE .STK-MED ONE Stop: 06/03/16 11:57 Phenylephrine HCl (Phenylephrine In Ns 100 Mcg/Ml) Confirm Administered Dose 1 mg .ROUTE .STK-MED ONE Stop: 06/03/16 13:38 Pneumococcal Polyvalent Vaccine (Pneumovax 23) 0.5 ml SUBCUT .ONCE ONE Stop: 06/04/16 08:00 Propofol (Diprivan 20 Ml) Confirm Administered Dose 400 mg .ROUTE .STK-MED ONE Stop: 06/03/16 07:56 Propofol (Diprivan 20 Ml) Confirm Administered Dose 200 mg .ROUTE .STK-MED ONE Stop: 06/03/16 15:06 Rocuronium [place] (Zemuron) Confirm Administered Dose 50 mg .ROUTE .STK-MED ONE Stop: 06/03/16 07:59 Rocuronium [place] (Zemuron) Confirm Administered Dose 50 mg .ROUTE .STK-MED ONE Stop: 06/03/16 14:51 - Exam Physical Findings Comments:: Vitals: as above General: alert and oriented. NAD Psych: Pleasant affect. calm. HEENT: normocephalic, atraumatic. EOMI Cardiac: Normal S1, S2. regular rate. No murmurs rubs, or gallops. No JVD noted. Lungs: CTAB. good air entry bilaterally. Abd: Soft, NT/ND. No HSM noted. Multiple new incision site and dressing, which appear to be clear, dry, and intact. Skin: no new visible rashes or purpura noted Neuro: CN grossly intact. Strength intact and adequate bilaterally. Consult PN Assessment/Plan Procedures: Procedures ASSAY OF AMYLASE (09/13/15) ASSAY OF LIPASE (03/26/16) ASSAY OF MAGNESIUM (10/13/15) ASSAY OF TROPONIN QUANT (10/13/15) ASSAY THYROID STIM HORMONE (10/13/15) BLOOD GASES ANY COMBINATION (10/13/15) CHEST X-RAY 2VW FRONTAL&LATL (10/13/15) COMPLETE CBC W/AUTO DIFF WBC (03/26/16) COMPREHEN METABOLIC PANEL (03/26/16) CT ANGIO ABDOMINAL ARTERIES (06/16/15) ELECTROCARDIOGRAM TRACING (10/13/15) EMERGENCY DEPT VISIT (03/26/16) EMERGENCY DEPT VISIT (02/22/16) EMERGENCY DEPT VISIT (09/24/15) EMERGENCY DEPT VISIT (09/13/15) FIBRIN DEGRADATION QUANT (10/13/15) HELICOBACTER PYLORI ANTIBODY (02/22/16) HYDRATE IV INFUSION ADD-ON (10/11/15) ROUTINE VENIPUNCTURE (03/26/16) RPR S/N/AX/GEN/TRNK 2.5CM/< (02/22/16) THER/PROPH/DIAG INJ IV PUSH (10/11/15) TX/PRO/DX INJ NEW DRUG ADDON (10/11/15) TX/PRO/DX INJ SAME DRUG MANAGER CAR (09/24/15) URINALYSIS AUTO W/O SCOPE (10/11/15) URINALYSIS AUTO W/SCOPE (03/26/16) WITHDRAWAL OF ARTERIAL BLOOD (10/13/15) X-RAY EXAM OF ABDOMEN (02/22/16) (1) HTN (hypertension) SNOMED Code(s): 72030177 Code(s): I10 - ESSENTIAL (PRIMARY) HYPERTENSION Current Visit: Yes Qualifiers: Hypertension type: unspecified secondary hypertension Qualified Code(s): I15.9 - Secondary hypertension, unspecified; I15 - Secondary hypertension (2) GERD (gastroesophageal reflux disease) SNOMED Code(s): 099697996 Code(s): K21.9 - GASTRO-ESOPHAGEAL REFLUX DISEASE WITHOUT ESOPHAGITIS Current Visit: Yes Qualifiers: Esophagitis presence: esophagitis presence not specified Qualified Code(s) : K21.9 - Gastro-esophageal reflux disease without esophagitis (3) PAD (peripheral artery disease) SNOMED Code(s): 160966979 Code(s): I73.9 - PERIPHERAL VASCULAR DISEASE, UNSPECIFIED Current Visit: Yes (4) Anxiety SNOMED Code(s): 40791062 Code(s): F41.9 - ANXIETY DISORDER, UNSPECIFIED Current Visit: No (5) Hypokalemia SNOMED Code(s): 04578172 Code(s): E87.6 - HYPOKALEMIA Current Visit: Yes Problem List Initiated/Reviewed/Updated: Yes My Orders last 24 hours: My Active Orders 06/06/16 09:00 Potassium Chloride 40 meq PO TID 06/10/16 07:00 CBC W/O DIFF,HEMOGRAM [HEME] MOTH@0700 06/13/16 07:00 CBC W/O DIFF,HEMOGRAM [HEME] MOTH@0700 06/17/16 07:00 CBC W/O DIFF,HEMOGRAM [HEME] MOTH@0700 06/20/16 07:00 CBC W/O DIFF,HEMOGRAM [HEME] MOTH@0700 06/24/16 07:00 CBC W/O DIFF,HEMOGRAM [HEME] MOTH@0700 Plan: Large right cecal polyp, s/p Right hemicolectomy - Pain regimen per primary team; pain currently under control Hypokalemia-supplemented Severe intraoperative hypotension. Resolved with fluids, and octreotide. 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 BP has remained stable. Chronic medical conditions: Hypertension-continue ARB, and amlodipine. Prediabetes-hold metformin while in the hospital, no need for sliding scale insulin as HBA1c was 5.7% in Apr GERD-continue PPI PAD - continue aspirin. Depression-continue SSRI BPH-continue off shailesh Hyperlipidemia-continue statin Anxiety-continue clonazepam Psychiatric comorbidities discontinue Risperdal DVT with SCDs, and patient to resume aspirin and start subcutaneous Lovenox per Dr. Coy. Thank you for this consultation. We will sign off. Please call us with any questions.
--- NOTE | 2016-06-06 11:43 | PCM.SURGPN ---
- General Info Date of Service: 06/06/16 POD#: 3 Functional Status: Reports: pain controlled - Review of Systems HEENT: Reports: no symptoms Pulmonary: Reports: no symptoms Cardiovascular: Reports: No Symptoms Gastrointestinal: Reports: No symptoms - Patient Data Vitals - most recent: Last Vital Signs Temp 97.7 F 06/06/16 10:57 Pulse 73 06/06/16 10:55 Resp 18 06/06/16 10:57 BP 116/72 06/06/16 10:57 Pulse Ox 98 06/06/16 10:57 Weight - most recent: 75.432 kg I&O - last 24 hours: Intake & Output 06/05/16 06/06/16 06/06/16 23:59 07:59 15:59 Intake Total 960 500 480 Output Total 2050 Balance 960 -1550 480 Lab Results last 24 hrs: Laboratory Results - last 24 hr 06/06/16 06/06/16 Range/Units 05:50 05:50 WBC 9.91 H (4.23-9.07) K/mm3 RBC 3.65 L (4.63-6.08) M/mm3 Hgb 10.7 L (13.7-17.5) gm/L Hct 32.6 L (40.1-51.0) % MCV 89.3 (79.0-92.2) fl MCH 29.3 (25.7-32.2) pg MCHC 32.8 (32.2-35.5) g/dl RDW Std Deviation 40.3 (35.1-43.9) fL Plt Count 435 H (163-337) K/mm3 MPV 9.4 (9.4-12.3) fl Neut % (Auto) 68.1 H (34.0-67.9) % Lymph % (Auto) 18.3 L (21.8-53.1) % [place] % (Auto) 9.8 (5.3-12.2) % Eos % (Auto) 3.1 (0.8-7.0) Baso % (Auto) 0.3 (0.1-1.2) % Neut # (Auto) 6.75 H (1.78-5.38) K/mm3 Lymph # (Auto) 1.81 (1.32-3.57) K/mm3 [place] # (Auto) 0.97 H (0.30-0.82) K/mm3 Eos # (Auto) 0.31 (0.04-0.54) K/mm3 Baso # (Auto) 0.03 (0.01-0.08) K/mm3 Sodium 140 (136-145) mEq/L Potassium 3.0 L (3.5-5.1) mEq/L Chloride 104 (98-107) mEq/L Carbon Dioxide 25 (21-32) mEq/L Anion Gap 14.0 (5-15) BUN 8 (7-18) mg/dL Creatinine 0.8 (0.7-1.3) mg/dL Est Cr Clr Drug Dosing 96.91 mL/min Estimated GFR (MDRD) > 60 (>60) mL/min BUN/Creatinine Ratio 10.0 L (14-18) Glucose 89 (80-115) mg/dL Calcium 8.5 (8.5-10.1) mg/dL Total Bilirubin 0.4 (0.2-1.0) mg/dL AST 19 (15-37) U/L ALT 24 (16-63) U/L Alkaline Phosphatase 72 (46-116) U/L Total Protein 6.1 L (6.4-8.2) g/dl Albumin 2.9 L (3.4-5.0) g/dl Globulin 3.2 gm/dL Albumin/Globulin Ratio 0.9 L (1-2) Med Orders - Current: Current Medications Acetaminophen (Tylenol) 650 mg PO Q4H PRN PRN Reason: Pain Last Admin: 06/05/16 20:43 Dose: 650 mg Hydrocodone Bitart/Acetaminophen ([place] 325-5 Mg) 1 tab PO Q6H PRN PRN Reason: Pain Last Admin: 06/06/16 08:07 Dose: 1 tab Amlodipine Besylate (Norvasc) 10 mg PO DAILY REPLACED BY [facility] Last Admin: 06/06/16 08:06 Dose: 10 mg Aspirin (Ecotrin) 325 mg PO DAILY REPLACED BY [facility] Last Admin: 06/06/16 08:05 Dose: 325 mg Cholecalciferol (Vitamin D3) 2,000 units PO DAILY REPLACED BY [facility] Last Admin: 06/06/16 08:07 Dose: 2,000 units Clonazepam (Klonopin) 1 mg PO TID REPLACED BY [facility] Last Admin: 06/06/16 08:06 Dose: 1 mg Enoxaparin Sodium (Lovenox) 40 mg SUBCUT DAILY REPLACED BY [facility] Last Admin: 06/06/16 08:06 Dose: 40 mg Losartan Potassium (Cozaar) 100 mg PO DAILY REPLACED BY [facility] Last Admin: 06/06/16 08:04 Dose: 100 mg Magnesium Oxide (Magnesium Oxide) 400 mg PO DAILY REPLACED BY [facility] Last Admin: 06/06/16 08:06 Dose: 400 mg Miscellaneous Information (Remove Patch) 0 ea TRDERM DAILY REPLACED BY [facility] Last Admin: 06/06/16 08:07 Dose: 1 ea Multivitamins (Thera) 1 each PO DAILY REPLACED BY [facility] Last Admin: 06/06/16 08:07 Dose: 1 each Nicotine (Habitrol) 14 mg TRDERM DAILY REPLACED BY [facility] Last Admin: 06/06/16 08:05 Dose: 14 mg Ondansetron HCl (Zofran) 4 mg IVPUSH Q8H PRN PRN Reason: Nausea Pantoprazole Sodium (Protonix) 40 mg PO DAILY@0700 REPLACED BY [facility] Last Admin: 06/06/16 06:33 Dose: 40 mg Potassium Chloride (Potassium Chloride) 40 meq PO TID REPLACED BY [facility] Stop: 06/06/16 15:01 Last Admin: 06/06/16 09:18 Dose: 40 meq Propranolol HCl (Inderal) 40 mg PO QID REPLACED BY [facility] Last Admin: 06/06/16 08:05 Dose: 40 mg Risperidone (Risperidal) 1 mg PO BID REPLACED BY [facility] Last Admin: 06/06/16 08:07 Dose: 1 mg Sertraline HCl (Zoloft) 50 mg PO DAILY REPLACED BY [facility] Last Admin: 06/06/16 08:07 Dose: 50 mg Simvastatin (Zocor) 20 mg PO BEDTIME REPLACED BY [facility] Last Admin: 06/05/16 20:38 Dose: 20 mg Sodium Chloride (Saline Flush) 10 ml FLUSH ASDIRECTED PRN PRN Reason: Keep Vein Open Last Admin: 06/04/16 08:53 Dose: 10 ml Sodium Chloride (Saline Flush) 10 ml FLUSH ASDIRECTED PRN PRN Reason: Keep Vein Open Tamsulosin HCl (Flomax) 0.4 mg PO BEDTIME REPLACED BY [facility] Last Admin: 06/05/16 20:38 Dose: 0.4 mg Temazepam (Restoril) 15 mg PO BEDTIME PRN PRN Reason: Insomnia Last Admin: 06/05/16 01:13 Dose: 15 mg Discontinued Medications Acetaminophen (Tylenol) 650 mg PO NOW STA Stop: 06/03/16 09:59 Last Admin: 06/03/16 10:09 Dose: 650 mg Hydrocodone Bitart/Acetaminophen ([place] 325-5 Mg) 1 tab PO Q4H PRN PRN Reason: Abdominal Pain Last Admin: 06/05/16 01:13 Dose: 1 tab Albuterol (Proventil Hfa) Confirm Administered Dose 6.7 gm INH .STK-MED ONE Stop: 06/03/16 15:31 Bupivacaine HCl (Marcaine 0.25%) Confirm Administered Dose 30 ml .ROUTE .STK- MED ONE Stop: 06/03/16 08:39 Last Admin: 06/03/16 12:16 Dose: 2 ml Diphenhydramine HCl (Benadryl) 25 mg IVPUSH Q6H PRN PRN Reason: pruritis Stop: 06/03/16 18:00 Diphtheria/Tetanus/Acell Pertussis (Boostrix) 0.5 ml IM .ONCE ONE Stop: 06/03/16 17:23 Ephedrine Sulfate (Ephedrine In Ns) Confirm Administered Dose 25 mg .ROUTE .STK- MED ONE Stop: 06/03/16 11:56 Ephedrine Sulfate (Ephedrine In Ns) Confirm Administered Dose 25 mg .ROUTE .STK- MED ONE Stop: 06/03/16 13:23 Ephedrine Sulfate (Ephedrine In Ns) Confirm Administered Dose 25 mg .ROUTE .STK- MED ONE Stop: 06/03/16 13:44 Famotidine (Pepcid) 20 mg IVPUSH ONETIME ONE Stop: 06/03/16 09:58 Last Admin: 06/03/16 10:11 Dose: 20 mg Fentanyl (Sublimaze) Confirm Administered Dose 250 mcg .ROUTE .STK-MED ONE Stop: 06/03/16 07:56 Fentanyl (Sublimaze) Confirm Administered Dose 250 mcg .ROUTE .STK-MED ONE Stop: 06/03/16 12:59 Fentanyl (Sublimaze) 50 mcg IVPUSH Q5M PRN PRN Reason: Pain Stop: 06/03/16 18:00 Glycopyrrolate () Confirm Administered Dose 1 mg .ROUTE .STK-MED ONE Stop: 06/03/16 15:11 Hydromorphone HCl (Dilaudid) 0.5 mg IVPUSH Q15M PRN PRN Reason: severe pain Stop: 06/03/16 14:21 Hydromorphone HCl (Dilaudid) Confirm Administered Dose 1 mg .ROUTE .STK-MED ONE Stop: 06/03/16 14:19 Hydromorphone HCl (Dilaudid) 0.5 mg IVPUSH Q1H PRN PRN Reason: Pain Last Admin: 06/04/16 20:10 Dose: 0.5 mg Lactated Ringer's (Ringers, Lactated) 1,000 mls @ 125 mls/hr IV ASDIRECTED OG Last Admin: 06/03/16 09:42 Dose: 125 mls/hr Lidocaine HCl (Xylocaine-Mpf 1%) Confirm Administered Dose 4 mls @ as directed .ROUTE .STK-MED ONE Stop: 06/03/16 07:59 Octreotide Acetate 1,000 mcg/ (Sodium Chloride) 100 mls @ 25 mls/hr IV ONETIME OG Cefoxitin Sodium 2 gm/ Premix 50 mls @ 100 mls/hr IV ONETIME OG Stop: 06/03/16 23:59 Last Admin: 06/03/16 10:50 Dose: 100 mls/hr Octreotide Acetate 1,000 mcg/ (Sodium Chloride) 100 mls @ 25 mls/hr IV ONETIME OG Lactated Ringer's (Ringers, Lactated) Confirm Administered Dose 1,000 mls @ as directed .ROUTE .STK-MED ONE Stop: 06/03/16 14:18 Lactated Ringer's (Ringers, Lactated) Confirm Administered Dose 1,000 mls @ as directed .ROUTE .STK-MED ONE Stop: 06/03/16 14:18 Lactated Ringer's (Ringers, Lactated) Confirm Administered Dose 1,000 mls @ as directed .ROUTE .STK-MED ONE Stop: 06/03/16 14:18 Lactated Ringer's (Ringers, Lactated) Confirm Administered Dose 1,000 mls @ as directed .ROUTE .STK-MED ONE Stop: 06/03/16 14:18 Lactated Ringer's (Ringers, Lactated) Confirm Administered Dose 1,000 mls @ as directed .ROUTE .STK-MED ONE Stop: 06/03/16 15:06 Lactated Ringer's (Ringers, Lactated) 1,000 mls @ 100 mls/hr IV ASDIRECTED OG Last Admin: 06/04/16 16:31 Dose: 100 mls/hr Sodium Chloride (Normal Saline) Confirm Administered Dose 500 mls @ as directed .ROUTE .STK-MED ONE Stop: 06/03/16 16:54 Last Admin: 06/03/16 17:14 Dose: 1 ml Iron Sucrose 500 mg/ Sodium (Chloride) 275 mls @ 69 mls/hr IV ONETIME ONE Stop: 06/05/16 13:29 Last Admin: 06/05/16 10:19 Dose: 69 mls/hr Ketamine HCl (Ketalar) Confirm Administered Dose 500 mg .ROUTE .STK-MED ONE Stop: 06/03/16 12:56 Ketorolac Tromethamine (Toradol) Confirm Administered Dose 30 mg .ROUTE .STK- MED ONE Stop: 06/03/16 15:15 Lidocaine/Sodium Bicarbonate (Buffered Lidocaine 1% In Ns 8.4%) 0.25 ml IV ONETIME PRN PRN Reason: Prior to IV Start Stop: 06/03/16 16:00 Last Admin: 06/03/16 08:35 Dose: 0.25 ml Midazolam HCl (Versed 1 Mg/Ml) Confirm Administered Dose 2 mg .ROUTE .STK-MED ONE Stop: 06/03/16 07:56 Neostigmine Methylsulfate (Neostigmine) Confirm Administered Dose 5 mg .ROUTE .STK-MED ONE Stop: 06/03/16 15:11 Octreotide Acetate (Sandostatin) 300 mcg .ROUTE .STK-MED ONE Stop: 06/03/16 11:01 Ondansetron HCl (Zofran) 4 mg IVPUSH ONETIME ONE Stop: 06/03/16 09:56 Last Admin: 06/03/16 10:09 Dose: 4 mg Ondansetron HCl (Zofran) 4 mg IVPUSH ONETIME PRN PRN Reason: Nausea/Vomiting Stop: 06/03/16 18:00 Phenylephrine HCl (Phenylephrine In Ns 100 Mcg/Ml) Confirm Administered Dose 1 mg .ROUTE .STK-MED ONE Stop: 06/03/16 11:57 Phenylephrine HCl (Phenylephrine In Ns 100 Mcg/Ml) Confirm Administered Dose 1 mg .ROUTE .STK-MED ONE Stop: 06/03/16 13:38 Pneumococcal Polyvalent Vaccine (Pneumovax 23) 0.5 ml SUBCUT .ONCE ONE Stop: 06/04/16 08:00 Propofol (Diprivan 20 Ml) Confirm Administered Dose 400 mg .ROUTE .STK-MED ONE Stop: 06/03/16 07:56 Propofol (Diprivan 20 Ml) Confirm Administered Dose 200 mg .ROUTE .STK-MED ONE Stop: 06/03/16 15:06 Rocuronium [place] (Zemuron) Confirm Administered Dose 50 mg .ROUTE .STK-MED ONE Stop: 06/03/16 07:59 Rocuronium [place] (Zemuron) Confirm Administered Dose 50 mg .ROUTE .STK-MED ONE Stop: 06/03/16 14:51 - Exam Wound/Incisions: healing well General: alert, oriented Lungs: Clear to auscultation, Normal respiratory effort Cardiovascular: Regular Rate, Regular Rhythm Abdomen: bowel sounds present, soft, no tenderness, no distension - Problem List Review Problem List Initiated/Reviewed/Updated: Yes - My Orders Last 24 Hours: Active Orders 24 hr Category Date Time Status Ambulate [RC] QID Care 06/05/16 11:46 Active Discontinue Telemetry Monitoring [Cardiac Monitoring Care 06/06/16 11:40 Ordered Discontinue] [RC] Click To Edit May Shower [RC] ASDIRECTED Care 06/05/16 11:44 Active Clear Liquid Diet [DIET] Diet 06/05/16 Dinner Active Soft Diet [DIET] Diet 06/06/16 Dinner Ordered CBC W/O DIFF,HEMOGRAM [HEME] MOTH@0700 Lab 06/10/16 07:00 Ordered CBC W/O DIFF,HEMOGRAM [HEME] MOTH@0700 Lab 06/13/16 07:00 Ordered CBC W/O DIFF,HEMOGRAM [HEME] MOTH@0700 Lab 06/17/16 07:00 Ordered CBC W/O DIFF,HEMOGRAM [HEME] MOTH@0700 Lab 06/20/16 07:00 Ordered CBC W/O DIFF,HEMOGRAM [HEME] MOTH@0700 Lab 06/24/16 07:00 Ordered Acetaminophen [Tylenol] Med 06/05/16 19:47 Active 650 mg PO Q4H PRN Acetaminophen/HYDROcodone [[place] 325-5 MG] Med 06/05/16 11:42 Active 1 tab PO Q6H PRN Potassium Chloride Med 06/06/16 09:00 Active 40 meq PO TID Sodium Chloride 0.9% [Saline Flush] Med 06/05/16 11:41 Active 10 ml FLUSH ASDIRECTED PRN Convert IV to Saline Lock [OM.PC] Routine Oth 06/05/16 11:41 Ordered Discontinue Saline Lock [Peripheral IV Discontinue] [OM Oth 06/06/16 11:41 Ordered .PC] Routine Medication Orders Acetaminophen (Tylenol) 650 mg PO Q4H PRN PRN Reason: Pain Last Admin: 06/05/16 20:43 Dose: 650 mg Hydrocodone Bitart/Acetaminophen ([place] 325-5 Mg) 1 tab PO Q6H PRN PRN Reason: Pain Last Admin: 06/06/16 08:07 Dose: 1 tab Admin: 06/05/16 12:51 Dose: 1 tab Amlodipine Besylate (Norvasc) 10 mg PO DAILY REPLACED BY [facility] Last Admin: 06/06/16 08:06 Dose: 10 mg Admin: 06/05/16 08:32 Dose: 10 mg Admin: 06/04/16 10:04 Dose: 10 mg Aspirin (Ecotrin) 325 mg PO DAILY REPLACED BY [facility] Last Admin: 06/06/16 08:05 Dose: 325 mg Admin: 06/05/16 08:31 Dose: 325 mg Admin: 06/04/16 10:03 Dose: 325 mg Cholecalciferol (Vitamin D3) 2,000 units PO DAILY REPLACED BY [facility] Last Admin: 06/06/16 08:07 Dose: 2,000 units Admin: 06/05/16 08:33 Dose: 2,000 units Admin: 06/04/16 10:03 Dose: 2,000 units Clonazepam (Klonopin) 1 mg PO TID REPLACED BY [facility] Last Admin: 06/06/16 08:06 Dose: 1 mg Admin: 06/05/16 20:38 Dose: 1 mg Admin: 06/05/16 14:43 Dose: 1 mg Admin: 06/05/16 08:32 Dose: 1 mg Admin: 06/04/16 20:10 Dose: 1 mg Admin: 06/04/16 14:19 Dose: 1 mg Admin: 06/04/16 10:04 Dose: 1 mg Admin: 06/03/16 21:59 Dose: 1 mg Admin: 06/03/16 18:48 Dose: 1 mg Enoxaparin Sodium (Lovenox) 40 mg SUBCUT DAILY REPLACED BY [facility] Last Admin: 06/06/16 08:06 Dose: 40 mg Admin: 06/05/16 08:32 Dose: 40 mg Admin: 06/04/16 10:04 Dose: 40 mg Losartan Potassium (Cozaar) 100 mg PO DAILY REPLACED BY [facility] Last Admin: 06/06/16 08:04 Dose: 100 mg Admin: 06/05/16 08:33 Dose: 100 mg Admin: 06/04/16 10:03 Dose: 100 mg Magnesium Oxide (Magnesium Oxide) 400 mg PO DAILY REPLACED BY [facility] Last Admin: 06/06/16 08:06 Dose: 400 mg Admin: 06/05/16 08:32 Dose: 400 mg Admin: 06/04/16 10:02 Dose: 400 mg Miscellaneous Information (Remove Patch) 0 ea TRDERM DAILY REPLACED BY [facility] Last Admin: 06/06/16 08:07 Dose: 1 ea Admin: 06/05/16 08:34 Dose: 1 ea Multivitamins (Thera) 1 each PO DAILY REPLACED BY [facility] Last Admin: 06/06/16 08:07 Dose: 1 each Admin: 06/05/16 08:31 Dose: 1 each Admin: 06/04/16 10:03 Dose: 1 each Nicotine (Habitrol) 14 mg TRDERM DAILY REPLACED BY [facility] Last Admin: 06/06/16 08:05 Dose: 14 mg Admin: 06/05/16 08:33 Dose: 14 mg Admin: 06/04/16 10:05 Dose: 14 mg Ondansetron HCl (Zofran) 4 mg IVPUSH Q8H PRN PRN Reason: Nausea Pantoprazole Sodium (Protonix) 40 mg PO DAILY@0700 REPLACED BY [facility] Last Admin: 06/06/16 06:33 Dose: 40 mg Admin: 06/05/16 08:32 Dose: 40 mg Admin: 06/04/16 06:43 Dose: 40 mg Potassium Chloride (Potassium Chloride) 40 meq PO TID REPLACED BY [facility] Stop: 06/06/16 15:01 Last Admin: 06/06/16 09:18 Dose: 40 meq Propranolol HCl (Inderal) 40 mg PO QID REPLACED BY [facility] Last Admin: 06/06/16 08:05 Dose: 40 mg Admin: 06/05/16 20:38 Dose: 40 mg Admin: 06/05/16 16:24 Dose: 40 mg Admin: 06/05/16 12:45 Dose: 40 mg Admin: 06/05/16 08:31 Dose: 40 mg Admin: 06/04/16 20:10 Dose: 40 mg Admin: 06/04/16 18:06 Dose: 40 mg Admin: 06/04/16 14:19 Dose: 40 mg Admin: 06/04/16 10:02 Dose: 40 mg Admin: 06/03/16 21:59 Dose: 40 mg Admin: 06/03/16 18:48 Dose: 40 mg Risperidone (Risperidal) 1 mg PO BID REPLACED BY [facility] Last Admin: 06/06/16 08:07 Dose: 1 mg Admin: 06/05/16 20:38 Dose: 1 mg Admin: 06/05/16 08:32 Dose: 1 mg Admin: 06/04/16 20:10 Dose: 1 mg Admin: 06/04/16 10:04 Dose: 1 mg Admin: 06/03/16 21:59 Dose: 1 mg Sertraline HCl (Zoloft) 50 mg PO DAILY REPLACED BY [facility] Last Admin: 06/06/16 08:07 Dose: 50 mg Admin: 06/05/16 08:32 Dose: 50 mg Admin: 06/04/16 10:04 Dose: 50 mg Simvastatin (Zocor) 20 mg PO BEDTIME REPLACED BY [facility] Last Admin: 06/05/16 20:38 Dose: 20 mg Admin: 06/04/16 20:10 Dose: 20 mg Admin: 06/03/16 21:59 Dose: 20 mg Sodium Chloride (Saline Flush) 10 ml FLUSH ASDIRECTED PRN PRN Reason: Keep Vein Open Last Admin: 06/04/16 08:53 Dose: 10 ml Sodium Chloride (Saline Flush) 10 ml FLUSH ASDIRECTED PRN PRN Reason: Keep Vein Open Tamsulosin HCl (Flomax) 0.4 mg PO BEDTIME REPLACED BY [facility] Last Admin: 06/05/16 20:38 Dose: 0.4 mg Admin: 06/04/16 20:10 Dose: 0.4 mg Admin: 06/03/16 21:59 Dose: 0.4 mg Temazepam (Restoril) 15 mg PO BEDTIME PRN PRN Reason: Insomnia Last Admin: 06/05/16 01:13 Dose: 15 mg - Plan Plan (Free Text/Narrative):: K is 3.0 doing well yajaira give postasium and advance diet LAURA
[2016-06-06] MEDS: Simvastatin 20 MG Tab PO SCH (21:08)
[2016-06-06] MEDS: Tamsulosin 0.4 MG Cap.ER PO SCH (21:09)
[2016-06-06] MEDS: Temazepam 15 MG Cap PO PRN (21:10)
[2016-06-07] MEDS: Pantoprazole 40 MG Tab.CR PO SCH (06:21)
[2016-06-07 08:02] VITALS: BP 142/78
[2016-06-07] MEDS: Enoxaparin 40 MG/0.4 ML Syringe SUBCUT SCH (08:04)
[2016-06-07] MEDS: Nicotine 14 MG/24 Hr Patch TRDERM SCH (08:04)
[2016-06-07] MEDS: Cholecalciferol (Vitamin D3) 1,000 Unit Tab PO SCH (08:06)
[2016-06-07] MEDS: Losartan 100 MG Tab PO SCH (08:06)
[2016-06-07] MEDS: Aspirin 325 MG Tab.EC PO SCH (08:06)
[2016-06-07] MEDS: Multivitamins,Therapeutic Tab PO SCH (08:06)
[2016-06-07] MEDS: risperiDONE 1 MG Tab PO SCH (08:06)
[2016-06-07] MEDS: ClonazePAM 1 MG Tab PO SCH (08:07)
[2016-06-07] MEDS: Magnesium Oxide 400 MG Tab PO SCH (08:07)
[2016-06-07] MEDS: amLODIPine 10 MG Tab PO SCH (08:07)
[2016-06-07] MEDS: Propranolol 40 MG Tab PO SCH ×2 (08:07→13:15)
[2016-06-07] MEDS: Sertraline 50 MG Tab PO SCH (08:07)
--- NOTE | 2016-06-07 12:44 | PCM.SURGPN ---
- General Info Date of Service: 06/07/16 - Patient Data Vitals - most recent: Last Vital Signs Temp 97.3 F 06/07/16 07:59 Pulse 78 06/07/16 07:59 Resp 14 06/07/16 07:59 BP 142/78 H 06/07/16 08:07 Pulse Ox 99 06/07/16 07:59 Weight - most recent: 75.296 kg I&O - last 24 hours: Intake & Output 06/06/16 06/07/16 06/07/16 23:59 07:59 15:59 Intake Total 120 400 120 Output Total 600 Balance 120 -200 120 Lab Results last 24 hrs: Laboratory Results - last 24 hr 06/07/16 06/07/16 Range/Units 08:13 08:13 WBC 12.10 H (4.23-9.07) K/mm3 RBC 3.91 L (4.63-6.08) M/mm3 Hgb 11.3 L (13.7-17.5) gm/L Hct 34.8 L (40.1-51.0) % MCV 89.0 (79.0-92.2) fl MCH 28.9 (25.7-32.2) pg MCHC 32.5 (32.2-35.5) g/dl RDW Std Deviation 41.5 (35.1-43.9) fL Plt Count 471 H (163-337) K/mm3 MPV 8.8 L (9.4-12.3) fl Sodium 140 (136-145) mEq/L Potassium 3.5 (3.5-5.1) mEq/L Chloride 105 (98-107) mEq/L Carbon Dioxide 23 (21-32) mEq/L Anion Gap 15.5 H (5-15) BUN 7 (7-18) mg/dL Creatinine 0.9 (0.7-1.3) mg/dL Est Cr Clr Drug Dosing 85.99 mL/min Estimated GFR (MDRD) > 60 (>60) mL/min BUN/Creatinine Ratio 7.8 L (14-18) Glucose 183 H (80-115) mg/dL Calcium 9.0 (8.5-10.1) mg/dL Med Orders - Current: Current Medications Acetaminophen (Tylenol) 650 mg PO Q4H PRN PRN Reason: Pain Last Admin: 06/05/16 20:43 Dose: 650 mg Hydrocodone Bitart/Acetaminophen ([place] 325-5 Mg) 1 tab PO Q6H PRN PRN Reason: Pain Last Admin: 06/06/16 08:07 Dose: 1 tab Amlodipine Besylate (Norvasc) 10 mg PO DAILY [facility] Last Admin: 06/07/16 08:07 Dose: 10 mg Aspirin (Ecotrin) 325 mg PO DAILY [facility] Last Admin: 06/07/16 08:06 Dose: 325 mg Cholecalciferol (Vitamin D3) 2,000 units PO DAILY [facility] Last Admin: 06/07/16 08:06 Dose: 2,000 units Clonazepam (Klonopin) 1 mg PO TID [facility] Last Admin: 06/07/16 08:07 Dose: 1 mg Enoxaparin Sodium (Lovenox) 40 mg SUBCUT DAILY [facility] Last Admin: 06/07/16 08:04 Dose: 40 mg Losartan Potassium (Cozaar) 100 mg PO DAILY [facility] Last Admin: 06/07/16 08:06 Dose: 100 mg Magnesium Oxide (Magnesium Oxide) 400 mg PO DAILY [facility] Last Admin: 06/07/16 08:07 Dose: 400 mg Miscellaneous Information (Remove Patch) 0 ea TRDERM DAILY [facility] Last Admin: 06/07/16 08:11 Dose: Not Given Multivitamins (Thera) 1 each PO DAILY [facility] Last Admin: 06/07/16 08:06 Dose: 1 each Nicotine (Habitrol) 14 mg TRDERM DAILY [facility] Last Admin: 06/07/16 08:04 Dose: 14 mg Ondansetron HCl (Zofran) 4 mg IVPUSH Q8H PRN PRN Reason: Nausea Pantoprazole Sodium (Protonix) 40 mg PO DAILY@0700 [facility] Last Admin: 06/07/16 06:21 Dose: 40 mg Propranolol HCl (Inderal) 40 mg PO QID [facility] Last Admin: 06/07/16 08:07 Dose: 40 mg Risperidone (Risperidal) 1 mg PO BID [facility] Last Admin: 06/07/16 08:06 Dose: 1 mg Sertraline HCl (Zoloft) 50 mg PO DAILY [facility] Last Admin: 06/07/16 08:07 Dose: 50 mg Simvastatin (Zocor) 20 mg PO BEDTIME [facility] Last Admin: 06/06/16 21:08 Dose: 20 mg Sodium Chloride (Saline Flush) 10 ml FLUSH ASDIRECTED PRN PRN Reason: Keep Vein Open Last Admin: 06/04/16 08:53 Dose: 10 ml Sodium Chloride (Saline Flush) 10 ml FLUSH ASDIRECTED PRN PRN Reason: Keep Vein Open Tamsulosin HCl (Flomax) 0.4 mg PO BEDTIME OG Last Admin: 06/06/16 21:09 Dose: 0.4 mg Temazepam (Restoril) 15 mg PO BEDTIME PRN PRN Reason: Insomnia Last Admin: 06/06/16 21:10 Dose: 15 mg Discontinued Medications Acetaminophen (Tylenol) 650 mg PO NOW STA Stop: 06/03/16 09:59 Last Admin: 06/03/16 10:09 Dose: 650 mg Hydrocodone Bitart/Acetaminophen ([place] 325-5 Mg) 1 tab PO Q4H PRN PRN Reason: Abdominal Pain Last Admin: 06/05/16 01:13 Dose: 1 tab Albuterol (Proventil Hfa) Confirm Administered Dose 6.7 gm INH .STK-MED ONE Stop: 06/03/16 15:31 Bupivacaine HCl (Marcaine 0.25%) Confirm Administered Dose 30 ml .ROUTE .STK- MED ONE Stop: 06/03/16 08:39 Last Admin: 06/03/16 12:16 Dose: 2 ml Diphenhydramine HCl (Benadryl) 25 mg IVPUSH Q6H PRN PRN Reason: pruritis Stop: 06/03/16 18:00 Diphtheria/Tetanus/Acell Pertussis (Boostrix) 0.5 ml IM .ONCE ONE Stop: 06/03/16 17:23 Ephedrine Sulfate (Ephedrine In Ns) Confirm Administered Dose 25 mg .ROUTE .STK- MED ONE Stop: 06/03/16 11:56 Ephedrine Sulfate (Ephedrine In Ns) Confirm Administered Dose 25 mg .ROUTE .STK- MED ONE Stop: 06/03/16 13:23 Ephedrine Sulfate (Ephedrine In Ns) Confirm Administered Dose 25 mg .ROUTE .STK- MED ONE Stop: 06/03/16 13:44 Famotidine (Pepcid) 20 mg IVPUSH ONETIME ONE Stop: 06/03/16 09:58 Last Admin: 06/03/16 10:11 Dose: 20 mg Fentanyl (Sublimaze) Confirm Administered Dose 250 mcg .ROUTE .STK-MED ONE Stop: 06/03/16 07:56 Fentanyl (Sublimaze) Confirm Administered Dose 250 mcg .ROUTE .STK-MED ONE Stop: 06/03/16 12:59 Fentanyl (Sublimaze) 50 mcg IVPUSH Q5M PRN PRN Reason: Pain Stop: 06/03/16 18:00 Glycopyrrolate () Confirm Administered Dose 1 mg .ROUTE .STK-MED ONE Stop: 06/03/16 15:11 Hydromorphone HCl (Dilaudid) 0.5 mg IVPUSH Q15M PRN PRN Reason: severe pain Stop: 06/03/16 14:21 Hydromorphone HCl (Dilaudid) Confirm Administered Dose 1 mg .ROUTE .STK-MED ONE Stop: 06/03/16 14:19 Hydromorphone HCl (Dilaudid) 0.5 mg IVPUSH Q1H PRN PRN Reason: Pain Last Admin: 06/04/16 20:10 Dose: 0.5 mg Lactated Ringer's (Ringers, Lactated) 1,000 mls @ 125 mls/hr IV ASDIRECTED [facility] Last Admin: 06/03/16 09:42 Dose: 125 mls/hr Lidocaine HCl (Xylocaine-Mpf 1%) Confirm Administered Dose 4 mls @ as directed .ROUTE .STK-MED ONE Stop: 06/03/16 07:59 Octreotide Acetate 1,000 mcg/ (Sodium Chloride) 100 mls @ 25 mls/hr IV ONETIME OG Cefoxitin Sodium 2 gm/ Premix 50 mls @ 100 mls/hr IV ONETIME OG Stop: 06/03/16 23:59 Last Admin: 06/03/16 10:50 Dose: 100 mls/hr Octreotide Acetate 1,000 mcg/ (Sodium Chloride) 100 mls @ 25 mls/hr IV ONETIME OG Lactated Ringer's (Ringers, Lactated) Confirm Administered Dose 1,000 mls @ as directed .ROUTE .STK-MED ONE Stop: 06/03/16 14:18 Lactated Ringer's (Ringers, Lactated) Confirm Administered Dose 1,000 mls @ as directed .ROUTE .STK-MED ONE Stop: 06/03/16 14:18 Lactated Ringer's (Ringers, Lactated) Confirm Administered Dose 1,000 mls @ as directed .ROUTE .STK-MED ONE Stop: 06/03/16 14:18 Lactated Ringer's (Ringers, Lactated) Confirm Administered Dose 1,000 mls @ as directed .ROUTE .STK-MED ONE Stop: 06/03/16 14:18 Lactated Ringer's (Ringers, Lactated) Confirm Administered Dose 1,000 mls @ as directed .ROUTE .STK-MED ONE Stop: 06/03/16 15:06 Lactated Ringer's (Ringers, Lactated) 1,000 mls @ 100 mls/hr IV ASDIRECTED [facility] Last Admin: 06/04/16 16:31 Dose: 100 mls/hr Sodium Chloride (Normal Saline) Confirm Administered Dose 500 mls @ as directed .ROUTE .ST-MED ONE Stop: 06/03/16 16:54 Last Admin: 06/03/16 17:14 Dose: 1 ml Iron Sucrose 500 mg/ Sodium (Chloride) 275 mls @ 69 mls/hr IV ONETIME ONE Stop: 06/05/16 13:29 Last Admin: 06/05/16 10:19 Dose: 69 mls/hr Ketamine HCl (Ketalar) Confirm Administered Dose 500 mg .ROUTE .ST-MED ONE Stop: 06/03/16 12:56 Ketorolac Tromethamine (Toradol) Confirm Administered Dose 30 mg .ROUTE .STK- MED ONE Stop: 06/03/16 15:15 Lidocaine/Sodium Bicarbonate (Buffered Lidocaine 1% In Ns 8.4%) 0.25 ml IV ONETIME PRN PRN Reason: Prior to IV Start Stop: 06/03/16 16:00 Last Admin: 06/03/16 08:35 Dose: 0.25 ml Midazolam HCl (Versed 1 Mg/Ml) Confirm Administered Dose 2 mg .ROUTE .STK-MED ONE Stop: 06/03/16 07:56 Neostigmine Methylsulfate (Neostigmine) Confirm Administered Dose 5 mg .ROUTE .STK-MED ONE Stop: 06/03/16 15:11 Octreotide Acetate (Sandostatin) 300 mcg .ROUTE .STK-MED ONE Stop: 06/03/16 11:01 Ondansetron HCl (Zofran) 4 mg IVPUSH ONETIME ONE Stop: 06/03/16 09:56 Last Admin: 06/03/16 10:09 Dose: 4 mg Ondansetron HCl (Zofran) 4 mg IVPUSH ONETIME PRN PRN Reason: Nausea/Vomiting Stop: 06/03/16 18:00 Phenylephrine HCl (Phenylephrine In Ns 100 Mcg/Ml) Confirm Administered Dose 1 mg .ROUTE .STK-MED ONE Stop: 06/03/16 11:57 Phenylephrine HCl (Phenylephrine In Ns 100 Mcg/Ml) Confirm Administered Dose 1 mg .ROUTE .STK-MED ONE Stop: 06/03/16 13:38 Pneumococcal Polyvalent Vaccine (Pneumovax 23) 0.5 ml SUBCUT .ONCE ONE Stop: 06/04/16 08:00 Potassium Chloride (Potassium Chloride) 40 meq PO TID OG Stop: 06/06/16 15:01 Last Admin: 06/06/16 14:46 Dose: 40 meq Propofol (Diprivan 20 Ml) Confirm Administered Dose 400 mg .ROUTE .STK-MED ONE Stop: 06/03/16 07:56 Propofol (Diprivan 20 Ml) Confirm Administered Dose 200 mg .ROUTE .STK-MED ONE Stop: 06/03/16 15:06 Rocuronium [place] (Zemuron) Confirm Administered Dose 50 mg .ROUTE .STK-MED ONE Stop: 06/03/16 07:59 Rocuronium [place] (Zemuron) Confirm Administered Dose 50 mg .ROUTE .STK-MED ONE Stop: 06/03/16 14:51 - Problem List Review Problem List Initiated/Reviewed/Updated: Yes - My Orders Last 24 Hours: Active Orders 24 hr Category Date Time Status Vital Signs [RC] 03,09,15,21 Care 06/06/16 23:41 Active Soft Diet [DIET] Diet 06/06/16 Dinner Active CBC W/O DIFF,HEMOGRAM [HEME] MOTH@0700 Lab 06/10/16 07:00 Ordered CBC W/O DIFF,HEMOGRAM [HEME] MOTH@0700 Lab 06/13/16 07:00 Ordered CBC W/O DIFF,HEMOGRAM [HEME] MOTH@0700 Lab 06/17/16 07:00 Ordered CBC W/O DIFF,HEMOGRAM [HEME] MOTH@0700 Lab 06/20/16 07:00 Ordered CBC W/O DIFF,HEMOGRAM [HEME] MOTH@0700 Lab 06/24/16 07:00 Ordered Medication Orders Acetaminophen (Tylenol) 650 mg PO Q4H PRN PRN Reason: Pain Last Admin: 06/05/16 20:43 Dose: 650 mg Hydrocodone Bitart/Acetaminophen ([place] 325-5 Mg) 1 tab PO Q6H PRN PRN Reason: Pain Last Admin: 06/06/16 08:07 Dose: 1 tab Admin: 06/05/16 12:51 Dose: 1 tab Amlodipine Besylate (Norvasc) 10 mg PO DAILY [facility] Last Admin: 06/07/16 08:07 Dose: 10 mg Admin: 06/06/16 08:06 Dose: 10 mg Admin: 06/05/16 08:32 Dose: 10 mg Admin: 06/04/16 10:04 Dose: 10 mg Aspirin (Ecotrin) 325 mg PO DAILY [facility] Last Admin: 06/07/16 08:06 Dose: 325 mg Admin: 06/06/16 08:05 Dose: 325 mg Admin: 06/05/16 08:31 Dose: 325 mg Admin: 06/04/16 10:03 Dose: 325 mg Cholecalciferol (Vitamin D3) 2,000 units PO DAILY [facility] Last Admin: 06/07/16 08:06 Dose: 2,000 units Admin: 06/06/16 08:07 Dose: 2,000 units Admin: 06/05/16 08:33 Dose: 2,000 units Admin: 06/04/16 10:03 Dose: 2,000 units Clonazepam (Klonopin) 1 mg PO TID [facility] Last Admin: 06/07/16 08:07 Dose: 1 mg Admin: 06/06/16 21:09 Dose: 1 mg Admin: 06/06/16 14:46 Dose: 1 mg Admin: 06/06/16 08:06 Dose: 1 mg Admin: 06/05/16 20:38 Dose: 1 mg Admin: 06/05/16 14:43 Dose: 1 mg Admin: 06/05/16 08:32 Dose: 1 mg Admin: 06/04/16 20:10 Dose: 1 mg Admin: 06/04/16 14:19 Dose: 1 mg Admin: 06/04/16 10:04 Dose: 1 mg Admin: 06/03/16 21:59 Dose: 1 mg Admin: 06/03/16 18:48 Dose: 1 mg Enoxaparin Sodium (Lovenox) 40 mg SUBCUT DAILY [facility] Last Admin: 06/07/16 08:04 Dose: 40 mg Admin: 06/06/16 08:06 Dose: 40 mg Admin: 06/05/16 08:32 Dose: 40 mg Admin: 06/04/16 10:04 Dose: 40 mg Losartan Potassium (Cozaar) 100 mg PO DAILY [facility] Last Admin: 06/07/16 08:06 Dose: 100 mg Admin: 06/06/16 08:04 Dose: 100 mg Admin: 06/05/16 08:33 Dose: 100 mg Admin: 06/04/16 10:03 Dose: 100 mg Magnesium Oxide (Magnesium Oxide) 400 mg PO DAILY [facility] Last Admin: 06/07/16 08:07 Dose: 400 mg Admin: 06/06/16 08:06 Dose: 400 mg Admin: 06/05/16 08:32 Dose: 400 mg Admin: 06/04/16 10:02 Dose: 400 mg Miscellaneous Information (Remove Patch) 0 ea TRDERM DAILY [facility] Last Admin: 06/07/16 08:11 Dose: Admin: 06/06/16 08:07 Dose: 1 ea Admin: 06/05/16 08:34 Dose: 1 ea Multivitamins (Thera) 1 each PO DAILY [facility] Last Admin: 06/07/16 08:06 Dose: 1 each Admin: 06/06/16 08:07 Dose: 1 each Admin: 06/05/16 08:31 Dose: 1 each Admin: 06/04/16 10:03 Dose: 1 each Nicotine (Habitrol) 14 mg TRDERM DAILY [facility] Last Admin: 06/07/16 08:04 Dose: 14 mg Admin: 06/06/16 08:05 Dose: 14 mg Admin: 06/05/16 08:33 Dose: 14 mg Admin: 06/04/16 10:05 Dose: 14 mg Ondansetron HCl (Zofran) 4 mg IVPUSH Q8H PRN PRN Reason: Nausea Pantoprazole Sodium (Protonix) 40 mg PO DAILY@0700 [facility] Last Admin: 06/07/16 06:21 Dose: 40 mg Admin: 06/06/16 06:33 Dose: 40 mg Admin: 06/05/16 08:32 Dose: 40 mg Admin: 06/04/16 06:43 Dose: 40 mg Propranolol HCl (Inderal) 40 mg PO QID [facility] Last Admin: 06/07/16 08:07 Dose: 40 mg Admin: 06/06/16 21:09 Dose: 40 mg Admin: 06/06/16 16:32 Dose: 40 mg Admin: 06/06/16 12:50 Dose: 40 mg Admin: 06/06/16 08:05 Dose: 40 mg Admin: 06/05/16 20:38 Dose: 40 mg Admin: 06/05/16 16:24 Dose: 40 mg Admin: 06/05/16 12:45 Dose: 40 mg Admin: 06/05/16 08:31 Dose: 40 mg Admin: 06/04/16 20:10 Dose: 40 mg Admin: 06/04/16 18:06 Dose: 40 mg Admin: 06/04/16 14:19 Dose: 40 mg Admin: 06/04/16 10:02 Dose: 40 mg Admin: 06/03/16 21:59 Dose: 40 mg Admin: 06/03/16 18:48 Dose: 40 mg Risperidone (Risperidal) 1 mg PO BID [facility] Last Admin: 06/07/16 08:06 Dose: 1 mg Admin: 06/06/16 21:09 Dose: 1 mg Admin: 06/06/16 08:07 Dose: 1 mg Admin: 06/05/16 20:38 Dose: 1 mg Admin: 06/05/16 08:32 Dose: 1 mg Admin: 06/04/16 20:10 Dose: 1 mg Admin: 06/04/16 10:04 Dose: 1 mg Admin: 06/03/16 21:59 Dose: 1 mg Sertraline HCl (Zoloft) 50 mg PO DAILY [facility] Last Admin: 06/07/16 08:07 Dose: 50 mg Admin: 06/06/16 08:07 Dose: 50 mg Admin: 06/05/16 08:32 Dose: 50 mg Admin: 06/04/16 10:04 Dose: 50 mg Simvastatin (Zocor) 20 mg PO BEDTIME [facility] Last Admin: 06/06/16 21:08 Dose: 20 mg Admin: 06/05/16 20:38 Dose: 20 mg Admin: 06/04/16 20:10 Dose: 20 mg Admin: 06/03/16 21:59 Dose: 20 mg Sodium Chloride (Saline Flush) 10 ml FLUSH ASDIRECTED PRN PRN Reason: Keep Vein Open Last Admin: 06/04/16 08:53 Dose: 10 ml Sodium Chloride (Saline Flush) 10 ml FLUSH ASDIRECTED PRN PRN Reason: Keep Vein Open Tamsulosin HCl (Flomax) 0.4 mg PO BEDTIME OG Last Admin: 06/06/16 21:09 Dose: 0.4 mg Admin: 06/05/16 20:38 Dose: 0.4 mg Admin: 06/04/16 20:10 Dose: 0.4 mg Admin: 06/03/16 21:59 Dose: 0.4 mg Temazepam (Restoril) 15 mg PO BEDTIME PRN PRN Reason: Insomnia Last Admin: 06/06/16 21:10 Dose: 15 mg Admin: 06/05/16 01:13 Dose: 15 mg - Plan Plan (Free Text/Narrative):: discharge summary dictated LAURA
--- NOTE | 2016-06-08 23:08 | PCM.SURGPN ---
- General Info Date of Service: 06/07/16 - Review of Systems General: Reports: No Symptoms - Patient Data Vitals - most recent: Last Vital Signs Temp 97.3 F 06/07/16 07:59 Pulse 78 06/07/16 07:59 Resp 14 06/07/16 07:59 BP 142/78 H 06/07/16 08:07 Pulse Ox 99 06/07/16 07:59 Weight - most recent: 75.296 kg Med Orders - Current: Current Medications Discontinued Medications Acetaminophen (Tylenol) 650 mg PO NOW STA Stop: 06/03/16 09:59 Last Admin: 06/03/16 10:09 Dose: 650 mg Acetaminophen (Tylenol) 650 mg PO Q4H PRN PRN Reason: Pain Last Admin: 06/05/16 20:43 Dose: 650 mg Hydrocodone Bitart/Acetaminophen ([place] 325-5 Mg) 1 tab PO Q4H PRN PRN Reason: Abdominal Pain Last Admin: 06/05/16 01:13 Dose: 1 tab Hydrocodone Bitart/Acetaminophen ([place] 325-5 Mg) 1 tab PO Q6H PRN PRN Reason: Pain Last Admin: 06/06/16 08:07 Dose: 1 tab Albuterol (Proventil Hfa) Confirm Administered Dose 6.7 gm INH .STK-MED ONE Stop: 06/03/16 15:31 Amlodipine Besylate (Norvasc) 10 mg PO DAILY [facility] Last Admin: 06/07/16 08:07 Dose: 10 mg Aspirin (Ecotrin) 325 mg PO DAILY [facility] Last Admin: 06/07/16 08:06 Dose: 325 mg Bupivacaine HCl (Marcaine 0.25%) Confirm Administered Dose 30 ml .ROUTE .STK- MED ONE Stop: 06/03/16 08:39 Last Admin: 06/03/16 12:16 Dose: 2 ml Cholecalciferol (Vitamin D3) 2,000 units PO DAILY [facility] Last Admin: 06/07/16 08:06 Dose: 2,000 units Clonazepam (Klonopin) 1 mg PO TID [facility] Last Admin: 06/07/16 08:07 Dose: 1 mg Diphenhydramine HCl (Benadryl) 25 mg IVPUSH Q6H PRN PRN Reason: pruritis Stop: 06/03/16 18:00 Diphtheria/Tetanus/Acell Pertussis (Boostrix) 0.5 ml IM .ONCE ONE Stop: 06/03/16 17:23 Last Admin: 06/07/16 13:26 Dose: 0.5 ml Enoxaparin Sodium (Lovenox) 40 mg SUBCUT DAILY [facility] Last Admin: 06/07/16 08:04 Dose: 40 mg Ephedrine Sulfate (Ephedrine In Ns) Confirm Administered Dose 25 mg .ROUTE .STK- MED ONE Stop: 06/03/16 11:56 Ephedrine Sulfate (Ephedrine In Ns) Confirm Administered Dose 25 mg .ROUTE .STK- MED ONE Stop: 06/03/16 13:23 Ephedrine Sulfate (Ephedrine In Ns) Confirm Administered Dose 25 mg .ROUTE .STK- MED ONE Stop: 06/03/16 13:44 Famotidine (Pepcid) 20 mg IVPUSH ONETIME ONE Stop: 06/03/16 09:58 Last Admin: 06/03/16 10:11 Dose: 20 mg Fentanyl (Sublimaze) Confirm Administered Dose 250 mcg .ROUTE .STK-MED ONE Stop: 06/03/16 07:56 Fentanyl (Sublimaze) Confirm Administered Dose 250 mcg .ROUTE .STK-MED ONE Stop: 06/03/16 12:59 Fentanyl (Sublimaze) 50 mcg IVPUSH Q5M PRN PRN Reason: Pain Stop: 06/03/16 18:00 Glycopyrrolate () Confirm Administered Dose 1 mg .ROUTE .STK-MED ONE Stop: 06/03/16 15:11 Hydromorphone HCl (Dilaudid) 0.5 mg IVPUSH Q15M PRN PRN Reason: severe pain Stop: 06/03/16 14:21 Hydromorphone HCl (Dilaudid) Confirm Administered Dose 1 mg .ROUTE .STK-MED ONE Stop: 06/03/16 14:19 Hydromorphone HCl (Dilaudid) 0.5 mg IVPUSH Q1H PRN PRN Reason: Pain Last Admin: 06/04/16 20:10 Dose: 0.5 mg Lactated Ringer's (Ringers, Lactated) 1,000 mls @ 125 mls/hr IV ASDIRECTED [facility] Last Admin: 06/03/16 09:42 Dose: 125 mls/hr Lidocaine HCl (Xylocaine-Mpf 1%) Confirm Administered Dose 4 mls @ as directed .ROUTE .[facility]-MED ONE Stop: 06/03/16 07:59 Octreotide Acetate 1,000 mcg/ (Sodium Chloride) 100 mls @ 25 mls/hr IV ONETIME OG Cefoxitin Sodium 2 gm/ Premix 50 mls @ 100 mls/hr IV ONETIME OG Stop: 06/03/16 23:59 Last Admin: 06/03/16 10:50 Dose: 100 mls/hr Octreotide Acetate 1,000 mcg/ (Sodium Chloride) 100 mls @ 25 mls/hr IV ONETIME OG Lactated Ringer's (Ringers, Lactated) Confirm Administered Dose 1,000 mls @ as directed .ROUTE .[facility] ONE Stop: 06/03/16 14:18 Lactated Ringer's (Ringers, Lactated) Confirm Administered Dose 1,000 mls @ as directed .ROUTE .[facility] ONE Stop: 06/03/16 14:18 Lactated Ringer's (Ringers, Lactated) Confirm Administered Dose 1,000 mls @ as directed .ROUTE .[facility] ONE Stop: 06/03/16 14:18 Lactated Ringer's (Ringers, Lactated) Confirm Administered Dose 1,000 mls @ as directed .ROUTE .[facility] ONE Stop: 06/03/16 14:18 Lactated Ringer's (Ringers, Lactated) Confirm Administered Dose 1,000 mls @ as directed .ROUTE .[facility]-MED ONE Stop: 06/03/16 15:06 Lactated Ringer's (Ringers, Lactated) 1,000 mls @ 100 mls/hr IV ASDIRECTED OG Last Admin: 06/04/16 16:31 Dose: 100 mls/hr Sodium Chloride (Normal Saline) Confirm Administered Dose 500 mls @ as directed .ROUTE .[facility]-MED ONE Stop: 06/03/16 16:54 Last Admin: 06/03/16 17:14 Dose: 1 ml Iron Sucrose 500 mg/ Sodium (Chloride) 275 mls @ 69 mls/hr IV ONETIME ONE Stop: 06/05/16 13:29 Last Admin: 06/05/16 10:19 Dose: 69 mls/hr Ketamine HCl (Ketalar) Confirm Administered Dose 500 mg .ROUTE .ST-MED ONE Stop: 06/03/16 12:56 Ketorolac Tromethamine (Toradol) Confirm Administered Dose 30 mg .ROUTE .STK- MED ONE Stop: 06/03/16 15:15 Lidocaine/Sodium Bicarbonate (Buffered Lidocaine 1% In Ns 8.4%) 0.25 ml IV ONETIME PRN PRN Reason: Prior to IV Start Stop: 06/03/16 16:00 Last Admin: 06/03/16 08:35 Dose: 0.25 ml Losartan Potassium (Cozaar) 100 mg PO DAILY [facility] Last Admin: 06/07/16 08:06 Dose: 100 mg Magnesium Oxide (Magnesium Oxide) 400 mg PO DAILY [facility] Last Admin: 06/07/16 08:07 Dose: 400 mg Midazolam HCl (Versed 1 Mg/Ml) Confirm Administered Dose 2 mg .ROUTE .STK-MED ONE Stop: 06/03/16 07:56 Miscellaneous Information (Remove Patch) 0 ea TRDERM DAILY [facility] Last Admin: 06/07/16 08:11 Dose: Not Given Multivitamins (Thera) 1 each PO DAILY [facility] Last Admin: 06/07/16 08:06 Dose: 1 each Neostigmine Methylsulfate (Neostigmine) Confirm Administered Dose 5 mg .ROUTE .STK-MED ONE Stop: 06/03/16 15:11 Nicotine (Habitrol) 14 mg TRDERM DAILY [facility] Last Admin: 06/07/16 08:04 Dose: 14 mg Octreotide Acetate (Sandostatin) 300 mcg .ROUTE .STK-MED ONE Stop: 06/03/16 11:01 Ondansetron HCl (Zofran) 4 mg IVPUSH ONETIME ONE Stop: 06/03/16 09:56 Last Admin: 06/03/16 10:09 Dose: 4 mg Ondansetron HCl (Zofran) 4 mg IVPUSH ONETIME PRN PRN Reason: Nausea/Vomiting Stop: 06/03/16 18:00 Ondansetron HCl (Zofran) 4 mg IVPUSH Q8H PRN PRN Reason: Nausea Pantoprazole Sodium (Protonix) 40 mg PO DAILY@0700 [facility] Last Admin: 06/07/16 06:21 Dose: 40 mg Phenylephrine HCl (Phenylephrine In Ns 100 Mcg/Ml) Confirm Administered Dose 1 mg .ROUTE .STK-MED ONE Stop: 06/03/16 11:57 Phenylephrine HCl (Phenylephrine In Ns 100 Mcg/Ml) Confirm Administered Dose 1 mg .ROUTE .STK-MED ONE Stop: 06/03/16 13:38 Pneumococcal Polyvalent Vaccine (Pneumovax 23) 0.5 ml SUBCUT .ONCE ONE Stop: 06/04/16 08:00 Last Admin: 06/07/16 13:27 Dose: 0.5 ml Potassium Chloride (Potassium Chloride) 40 meq PO TID [facility] Stop: 06/06/16 15:01 Last Admin: 06/06/16 14:46 Dose: 40 meq Propofol (Diprivan 20 Ml) Confirm Administered Dose 400 mg .ROUTE .STK-MED ONE Stop: 06/03/16 07:56 Propofol (Diprivan 20 Ml) Confirm Administered Dose 200 mg .ROUTE .STK-MED ONE Stop: 06/03/16 15:06 Propranolol HCl (Inderal) 40 mg PO QID [facility] Last Admin: 06/07/16 13:15 Dose: 40 mg Risperidone (Risperidal) 1 mg PO BID [facility] Last Admin: 06/07/16 08:06 Dose: 1 mg Rocuronium [place] (Zemuron) Confirm Administered Dose 50 mg .ROUTE .STK-MED ONE Stop: 06/03/16 07:59 Rocuronium [place] (Zemuron) Confirm Administered Dose 50 mg .ROUTE .STK-MED ONE Stop: 06/03/16 14:51 Sertraline HCl (Zoloft) 50 mg PO DAILY [facility] Last Admin: 06/07/16 08:07 Dose: 50 mg Simvastatin (Zocor) 20 mg PO BEDTIME [facility] Last Admin: 06/06/16 21:08 Dose: 20 mg Sodium Chloride (Saline Flush) 10 ml FLUSH ASDIRECTED PRN PRN Reason: Keep Vein Open Last Admin: 06/04/16 08:53 Dose: 10 ml Sodium Chloride (Saline Flush) 10 ml FLUSH ASDIRECTED PRN PRN Reason: Keep Vein Open Tamsulosin HCl (Flomax) 0.4 mg PO BEDTIME [facility] Last Admin: 06/06/16 21:09 Dose: 0.4 mg Temazepam (Restoril) 15 mg PO BEDTIME PRN PRN Reason: Insomnia Last Admin: 06/06/16 21:10 Dose: 15 mg - Exam Wound/Incisions: healing well - Problem List Review Problem List Initiated/Reviewed/Updated: Yes - Plan Plan (Free Text/Narrative):: pt will stay in the hospital beyond 96 hours because of the need to to be see how he tolerate a soft diet before discharged and thus avoid a return to hospital because of intolerance to solid diet manifested by nausea and vomiting. LAURA
--- NOTE | 2016-06-10 10:30 | DISCH ---
ADMISSION DATE: 06/03/2016 DISCHARGE DATE: 06/07/2016 HOSPITAL COURSE: This is a 65-year-old male who had a large polyp in the cecum and that was felt too large to be removed by the endoscopist, bharathoid and a polyp that was removed in the ascending colon. The patient had pathology showed that these were tubular adenoma and carcinoids respectively. The patient had a routine colonoscopy because of a guaiac-positive stool. Examination, this patient's comorbidities were that of some hypertension, some iliac artery stenosis status post iliac artery stent, schizophrenia. The patient is a current everyday smoker. PHYSICAL EXAMINATION: GENERAL: Showed alert and cooperative male. HEENT: Eyes, sclerae white. Extraocular muscle motion normal. Oral cavity, healthy mucous membrane with mouth and tongue. NECK: Supple. No nodes. No thyromegaly. LUNGS: Clear. No rales, rhonchi, fremitus, or dullness. HEART: Tones regular rate. EXTREMITIES: Upper and lower extremities, no angulation and good nutrition in both legs. HOSPITAL COURSE: The patient was brought into the hospital on Friday, where he underwent a laparoscopic right hemicolectomy. The patient's postoperative course was not out of the ordinary. Spent 24 hours in the ICU and the art line at that time was removed and his blood pressures remained stable throughout. Urine output was good. His Uribe catheter, which he had in the operating room was discontinued. Next day, he was moved to the floor, where ambulation SCDs, subcu Lovenox were used for continued care. His diet was advanced as GI function returned. At the time of his discharge, he is up and ambulating. Eating a regular diet and not requiring pain medications. The patient reached maximum hospital benefit and was discharged from the hospital. DISCHARG DIAGNOSES: Adenomatous polyp in the cecum; carcinoid polyp in the ascending colon; status post laparoscopic right hemicolectomy, improved. DIET: Surgical soft diet. ACTIVITY: Ambulation, but no strenuous work, lifting, pushing, or pulling. DISCHARGE MEDICATIONS: Per medication reconciliation form. DIAGNOSIS: As stated above. FOLLOW-UP: An appointment will be secured for him in 1 week. For pain medication, he will be using Tylenol. CONDITION ON DISCHARGE: Improved. MMODAL /[id number]
== END 2016-06-07 13:42 | disposition home or self-care (01) | DRG 330 ==
LOC: JD.MS 07:48 → JD.ICU 15:17 → JD.MS 06-05 07:42
PROVIDERS: ADMIT Surgery; ATTEND Surgery
PROC: 0DTF4ZZ Resection of Right Large Intestine, Percutaneous Endoscopic Approach (ICD-10-PCS; principal; 2016-06-03)
DX: D12.0 Benign neoplasm of cecum (principal); F20.89 Other schizophrenia; D3A.0 Benign carcinoid tumors; I95.9 Hypotension, unspecified; E87.6 Hypokalemia; F32.9 Major depressive disorder, single episode, unspecified; F41.9 Anxiety disorder, unspecified; E78.5 Hyperlipidemia, unspecified; I10 Essential (primary) hypertension; Z79.82 Long term (current) use of aspirin; Z79.899 Other long term (current) drug therapy; N40.0 Benign prostatic hyperplasia without lower urinary tract symptoms; R33.9 Retention of urine, unspecified; K21.9 Gastro-esophageal reflux disease without esophagitis; I73.9 Peripheral vascular disease, unspecified; R73.03 Prediabetes; Z88.8 Allergy status to other drugs, medicaments and biological substances; E78.00 Pure hypercholesterolemia, unspecified; K59.00 Constipation, unspecified; F17.200 Nicotine dependence, unspecified, uncomplicated; Z23 Encounter for immunization
CPT/HCPCS: 00790; 36415; 80048; 80053; 82607; 82728; 82746; 82962; 83540; 84466; 85025; 85027; 86850; 86900; 86901; 88307; 88307-26; 90471; 90715; 90732; 93005; A9270-GY; G0009; J0694; J1170; J1650; J1756; J1885; J2250; J2354-GY; J2405; J2704; J2710; J3010; J3490; J7030; J7040; J7050; J7120

== ENCOUNTER 2016-07-16 07:05 | Day surgery (SDC) | payer MEDICARE, MEDICAID ==
[~2016-07-16 07:05] MED LIST changes: +Lactated Ringers 1,000 ML IV SCH
[2016-07-16] MEDS ORDERED: Lidocaine 1% 4 ML ONE (07:12)
[2016-07-16] MEDS ORDERED: Propofol 200 MG/20 ML SDV ONE (07:12)
--- NOTE | 2016-07-16 07:35 | PCM.PREANE ---
Preanesthetic Assessment - Anesthesia/Transfusion/Family Hx Anesthesia History: Prior Anesthesia Without Reaction Family History of Anesthesia Reaction: No Transfusion History: No Prior Transfusion(s) Intubation History: Unknown - Review of Systems General: No Symptoms Pulmonary: No Symptoms Cardiovascular: No Symptoms, Chest Pain (pain on side thinks its from gas) Gastrointestinal: No symptoms Neurological: No Symptoms Other: Reports: Diabetes (pre), Depression, Anxiety - Physical Assessment NPO Status Date: 07/15/16 (sip of water with pills this am) NPO Status Time: 23:00 Pulse: 70 O2 Sat by Pulse Oximetry: 97 Respiratory Rate: 20 Blood Pressure: 117/60 Temperature: 97.8 F Height: 5 ft 11.5 in Weight: 75.296 kg ASA Class: 3 Mental Status: Alert & Oriented x3 Airway Class: Mallampati = 1 Dentition: Reports: Broken Tooth/Teeth, Missing Tooth/Teeth Thyro-Mental Finger Breadths: 3 Mouth Opening Finger Breadths: 3 ROM/Head Extension: Full Lungs: Clear to auscultation, Normal respiratory effort Cardiovascular: Regular Rate, Regular Rhythm - Lab Values: THis AM FBS 129 at 737 - Imaging/EKG Impressions: 05/17 EKG SR 64 - Allergies Allergies/Adverse Reactions: Allergies Allergy/AdvReac Type Severity Reaction Status Date / Time trazodone Allergy Other Verified 07/15/16 15:57 - Blood Blood Available: No - Anesthesia Plan Pre-Op Medication Ordered: Beta Brenna Beta Brenna: Propranolol Med Last Dose Date: 07/16/16 Med Last Dose Time: 06:15 - Acknowledgements Anesthesia Type Planned: MAC Pt an Appropriate Candidate for the Planned Anesthesia: Yes Alternatives and Risks of Anesthesia Discussed w Pt/Guardian: Yes Pt/Guardian Understands and Agrees with Anesthesia Plan: Yes PreAnesthesia Questionnaire HEENT History: Reports: Impaired Vision Other HEENT History: glasses Cardiovascular History: Reports: High Cholesterol, Hypertension, PVD Respiratory History: Reports: None Gastrointestinal History: Reports: Chronic Constipation, Gastritis, Helicobacter Pylori, Other (See Below) Other Gastrointestinal History: tubular adenoma Genitourinary History: Reports: Retention, Urinary CROSS TIE MAKER History: Reports: None Musculoskeletal History: Reports: None Neurological History: Reports: None Psychiatric History: Reports: Addiction, Anxiety, Depression, Schizophrenia, Suicidal Ideation Endocrine/Metabolic History: Reports: Other (See Below) Other Endocrine/Metabolic History: states was Dx'd with "pre-diabetic." Hematologic History: Reports: None Immunologic History: Reports: None Oncologic (Cancer) History: Reports: None Dermatologic History: Reports: None - Infectious Disease History Infectious Disease History: Reports: Shingles - Past Surgical History Head Surgeries/Procedures: Reports: None HEENT Surgical History: Reports: None Cardiovascular Surgical History: Reports: Vascular Surgery Other Cardiovascular Surgeries/Procedures: iliac artery stenosis with stent placement 07/2015 GI Surgical History: Reports: Colonoscopy Female Surgical History: Reports: None Male Surgical History: Reports: None Endocrine Surgical History: Reports: None Dermatological Surgical History: Reports: None - SUBSTANCE USE Smoking Status *Q: Current Some Day Smoker (15 cigs per day for 45 years) Tobacco Use Within Last Twelve Months: Cigarettes Second Hand Smoke Exposure: Yes Days Per Week of Alcohol Use: 0 Recreational Drug Use History: No - HOME MEDS Home Medications: Home Meds Losartan [Cozaar] 100 mg PO DAILY 09/13/15 [History] Propranolol [Inderal] 40 mg PO QID 09/13/15 [History] Tamsulosin HCl [Tamsulosin HCl] 0.4 mg PO BEDTIME 09/13/15 [History] atorvaSTATin [Lipitor] 20 mg PO BEDTIME 09/13/15 [History] metFORMIN [Glucophage XR] 250 mg PO BID 09/13/15 [History] Cholecalciferol (Vitamin D3) [Vitamin D3] 2,000 unit PO DAILY 10/13/15 [History] risperiDONE [risperiDONE] 1 mg PO BID 10/13/15 [History] Sertraline HCl [Zoloft] 150 mg PO DAILY 02/22/16 [History] clonazePAM [Clonazepam] 1 mg PO TID 02/22/16 [History] Alpha Lipoic Acid 400 mg PO DAILY 05/31/16 [History] Chromium Amino Acid Chelate [Chromium] 200 mcg PO DAILY 05/31/16 [History] Magnesium Citrate 100 mg PO BID 05/31/16 [History] Multivitamin [Multivitamins] 1 tab PO DAILY 05/31/16 [History] Pantoprazole Sodium [Protonix] 40 mg PO DAILY 05/31/16 [History] amLODIPine [Norvasc] 10 mg PO DAILY 05/31/16 [History] Aspirin [Ecotrin] 325 mg PO DAILY 06/03/16 [History] LORazepam 0.5 mg PO BID PRN 06/06/16 [History] - CURRENT (IN HOUSE) MEDS Current Meds: Current Medications Lactated Ringer's (Ringers, Lactated) 1,000 mls @ 125 mls/hr IV ASDIRECTED OG Stop: 07/16/16 23:00 Lidocaine/Sodium Bicarbonate (Buffered Lidocaine 1% In Ns 8.4%) 0.25 ml IV ONETIME PRN PRN Reason: Prior to IV Start Stop: 07/16/16 18:00 Sodium Chloride (Saline Flush) 10 ml FLUSH ASDIRECTED PRN PRN Reason: Keep Vein Open Stop: 07/16/16 18:00 Discontinued Medications Lidocaine HCl (Xylocaine-Mpf 1%) Confirm Administered Dose 4 mls @ as directed .ROUTE .STK-MED ONE Stop: 07/16/16 07:13 Propofol (Diprivan 20 Ml) Confirm Administered Dose 200 mg .ROUTE .STK-MED ONE Stop: 07/16/16 07:13
--- NOTE | 2016-07-16 08:24 | PCM.OPNOTE ---
- General Post-Op/Procedure Note Date of Surgery/Procedure: 07/16/16 Operative Procedure(s): epigastric pain Findings: tumor mass at cardia Pre Op Diagnosis: epigastric pain Post-Op Diagnosis: Same Anesthesia Technique: MAC Primary Surgeon: Vernon Jacques EBL in mLs: 0 Complications: None Condition: Good
--- NOTE | 2016-07-16 08:25 | PCM48HPAN ---
Post Anesthesia Note - EVALUATION WITHIN 48HRS OF ANESTHETIC Vital Signs in Normal Range: Yes Patient Participated in Evaluation: Yes Respiratory Function Stable: Yes Airway Patent: Yes Cardiovascular Function Stable: Yes Hydration Status Stable: Yes Pain Control Satisfactory: Yes Nausea and Vomiting Control Satisfactory: Yes Mental Status Recovered: Yes
[2016-07-16 08:53] VITALS: BP 129/65
--- NOTE | 2016-07-16 13:29 | OR ---
DATE OF OPERATION: 07/16/2016 SURGEON: Vernon Jacques MD PREOPERATIVE DIAGNOSIS: Epigastric pain. POSTOPERATIVE DIAGNOSIS: Epigastric pain. OPERATION PERFORMED: Esophagogastroduodenoscopy with biopsy. FINDINGS: A mass in the cardia extending up into the esophagus up to about 40 cm. GE junction appeared to be at 40 cm and then a long tube suggesting either cancer or Alba's extending down to the mass. There were erosions, no peristalsis in this area, and firm mass without mobility on manipulation of the biopsy forceps was evident. The balance of the esophagus and 40 cm up proximal was free of any pathology. The second portion of the duodenum, duodenal bulb, and pyloric channel were unremarkable. The antrum showed some flattening of mucosa, and this was biopsied. Body and fundus of the stomach were unremarkable. DESCRIPTION OF PROCEDURE: The patient was taken to the operating room, placed in a supine position, connected to monitoring equipment, given IV sedation, and placed in a left lateral position. Bite block was inserted and video Olympus gastroscope placed in the posterior oropharynx, under direct vision, threaded past the cricopharyngeus, down the esophagus, and into the stomach. The stomach was insufflated, and the scope was passed through the pylorus to the second portion of the duodenum. Second portion of the duodenum, duodenal bulb, and pyloric channel were free of any pathology. The antrum showed some flattening mucosa and biopsies were taken. Body and cardia of the stomach were unremarkable, as was the fundus, but J-maneuver showed a mass in the cardia extending up into the esophagus. This was biopsied and labeled mass at cardia. Esophagus and midesophagus around 40 cm, were biopsied. GE junction at about 45 cm was biopsied, and the GE junction at 40 cm was biopsied. The rest of the esophagus was viewed as the scope was withdrawn. The patient tolerated the procedure and sent to recovery room in a stable condition. Specimen sent to pathology in a labeled container. The patient will be followed up in the clinic. ANESTHESIA: MAC ESTIMATED BLOOD LOSS: 0 mLs. MMODAL /[id number]
== END 2016-07-16 09:20 | disposition home or self-care (01) ==
LOC: JD.SDS 07:05
PROVIDERS: ATTEND Surgery
DX: R10.13 Epigastric pain (principal); C16.0 Malignant neoplasm of cardia; B48.8 Other specified mycoses; F32.9 Major depressive disorder, single episode, unspecified; I10 Essential (primary) hypertension; F41.9 Anxiety disorder, unspecified; Z87.891 Personal history of nicotine dependence; F20.89 Other schizophrenia; Z79.899 Other long term (current) drug therapy; Z90.49 Acquired absence of other specified parts of digestive tract; Z98.890 Other specified postprocedural states
CPT/HCPCS: 43239; 82962; 88305; J7120; 88342; J2704

== ENCOUNTER 2016-07-26 22:22 | Emergency (ER) | payer MEDICARE, MEDICAID ==
[2016-07-26] MEDS ORDERED: Dicyclomine 20 MG/2 ML SDV IM ONE (22:55)
[2016-07-26] MEDS ORDERED: Ondansetron 4 MG/2 ML SDV IVPUSH STA (23:10)
--- NOTE | 2016-07-26 23:24 | EDM.PDOC ---
ED HPI GENERAL MEDICAL PROBLEM - General Chief Complaint: Abdominal Pain Stated Complaint: ABDOMINAL PAIN Time Seen by Provider: 07/26/16 22:38 Source of Information: Reports: Patient, Old Records, RN Notes Reviewed History Limitations: Reports: No Limitations - History of Present Illness INITIAL COMMENTS - FREE TEXT/NARRATIVE: The patient states that he was diagnosed with (it sounds like) esophageal cancer by EGD performed yesterday, 07/25/2016, by Dr. Vernon Jacques. He states that he underwent a CT scan of his chest abdomen and pelvis with oral and IV contrast this afternoon, for cancer screening. He states that around 14:00 this afternoon he developed generalized abdominal discomfort. He is not able to characterize the discomfort. He reports nausea, but no vomiting, constipation, diarrhea, or urinary symptoms. He states that he tried both Stefania- [place] and Pepto-Bismol, without relief. He has not identified any modifiers. He states that he has had similar symptoms on and off since September 2015. Abdomen Pain Score (Numeric/FACES): 6 - Related Data Allergies Allergy/AdvReac Type Severity Reaction Status Date / Time trazodone Allergy Other Verified 07/15/16 15:57 Home Meds: Home Meds Losartan [Cozaar] 100 mg PO DAILY 09/13/15 [History] Propranolol [Inderal] 40 mg PO QID 09/13/15 [History] Tamsulosin HCl [Tamsulosin HCl] 0.4 mg PO BEDTIME 09/13/15 [History] atorvaSTATin [Lipitor] 20 mg PO BEDTIME 09/13/15 [History] metFORMIN [Glucophage XR] 250 mg PO BID 09/13/15 [History] Cholecalciferol (Vitamin D3) [Vitamin D3] 2,000 unit PO DAILY 10/13/15 [History] risperiDONE [risperiDONE] 0.5 mg PO DAILY 10/13/15 [History] Sertraline HCl [Zoloft] 150 mg PO DAILY 02/22/16 [History] Alpha Lipoic Acid 400 mg PO DAILY 05/31/16 [History] Magnesium Citrate 100 mg PO BID 05/31/16 [History] Multivitamin [Multivitamins] 1 tab PO DAILY 05/31/16 [History] Pantoprazole Sodium [Protonix] 40 mg PO DAILY 05/31/16 [History] amLODIPine [Norvasc] 10 mg PO DAILY 05/31/16 [History] Aspirin [Ecotrin] 325 mg PO DAILY 06/03/16 [History] LORazepam [Ativan] 1 mg PO TID 07/26/16 [History] Past Medical History HEENT History: Reports: Impaired Vision Other HEENT History: glasses Cardiovascular History: Reports: High Cholesterol, Hypertension, PVD Gastrointestinal History: Reports: Colon Polyp, Gastritis, Helicobacter Pylori Genitourinary History: Reports: Retention, Urinary Psychiatric History: Reports: Addiction (alcoholism), Anxiety, Depression, Schizophrenia, Suicidal Ideation Endocrine/Metabolic History: Reports: Other (See Below) (Prediabetes) - Infectious Disease History Infectious Disease History: Reports: Shingles - Past Surgical History Cardiovascular Surgical History: Reports: Vascular Surgery (Left iliac artery stent 07/2015) GI Surgical History: Reports: Colonoscopy, EGD, Other (See Below) (Hemicolectomy ) Social & Family History - Family History Family Medical History: Noncontributory Cardiac: Reports: High Cholesterol, [place] - Tobacco Use Smoking Status *Q: Current Every Day Smoker Tobacco Use Within Last Twelve Months: Cigarettes Years of Tobacco use: 47 Packs/Tins Daily: 1 Second Hand Smoke Exposure: Yes - Caffeine Use Caffeine Use: Reports: Coffee - Alcohol Use Alcohol Use History: Yes Days Per Week of Alcohol Use: 0 Date/Time of Last Drink Comment: 1995 Alcohol Use in Last Twelve Months: No - Recreational Drug Use Recreational Drug Use: Yes Drug Use in Last 12 Months: No Recreational Drug Type: Reports: Marijuana/Hashish - Living Situation & Occupation Living situation: Reports: Single, Alone Occupation: Retired ED ROS GENERAL - Review of Systems Review Of Systems: See Below Constitutional: Reports: No Symptoms HEENT: Reports: No Symptoms Respiratory: Reports: No Symptoms Cardiovascular: Reports: No Symptoms Endocrine: Reports: No Symptoms GI/Abdominal: Reports: No Symptoms : Reports: No Symptoms Musculoskeletal: Reports: No Symptoms Skin: Reports: No Symptoms Neurological: Reports: No Symptoms Psychiatric: Reports: No Symptoms Hematologic/Lymphatic: Reports: No Symptoms Immunologic: Reports: No Symptoms ED EXAM, GI/ABD - Physical Exam Exam: See Below Exam Limited By: No Limitations General Appearance: Alert, WD/WN, No Apparent Distress, Anxious Eyes: Bilateral: Normal Appearance, EOMI Ears: Normal External Exam, Hearing Grossly Normal, Normal TMs Nose: Normal Inspection, No Blood Throat/Mouth: Normal Inspection, Normal Lips, Normal Voice, No Airway Compromise Head: Atraumatic, Normocephalic Neck: Normal Inspection, Full Range of Motion Respiratory/Chest: No Respiratory Distress, Lungs Clear, Normal Breath Sounds, No Accessory Muscle Use Cardiovascular: Normal Peripheral Pulses, Regular Rate, Rhythm, No Gallop, No JVD, No Murmur, No Rub GI/Abdominal: Soft, No Organomegaly, No Distention, No Abnormal Bruit, No Mass, Hyperactive Bowel Sounds, Tenderness (Isles, generalized.), Other (Well-healed midline scar but below the umbilicus) (Male) Exam: Deferred Rectal (Males) Exam: Deferred Back Exam: Normal Inspection, Full Range of Motion. No: CVA Tenderness (L), CVA Tenderness (R) Extremities: Normal Inspection, Normal Range of Motion, No Pedal Edema, Normal Capillary Refill Neurological: Alert, Oriented, Normal Cognition, No Motor/Sensory Deficits Psychiatric: Normal Affect, Anxious Skin Exam: Warm, Dry, Intact, Normal Color, No Rash Lymphatic: No Adenopathy Course - Vital Signs Last Recorded V/S: Last Vital Signs Temp 36.6 C 07/26/16 22:38 Pulse 78 07/26/16 22:38 Resp 20 07/26/16 22:39 BP 166/78 H 07/26/16 22:38 Pulse Ox 100 07/26/16 22:39 - Orders/Labs/Meds Orders: Active Orders 24 hr Category Date Time Status Bladder Scan [RC] ONETIME Care 07/27/16 00:06 Active Uribe Catheter Insertion [Insert Urinary Catheter] [OM. Care 07/27/16 01:00 Ordered PC] Q24H Urinary Catheter Assessment [RC] ASDIRECTED Care 07/27/16 00:52 Active Abdomen 1V Upright [CR] Stat Exams 07/26/16 22:56 Taken Labs: Laboratory Tests 07/26/16 07/26/16 07/26/16 Range/Units 22:30 22:40 22:40 WBC 12.44 H (4.23-9.07) K/mm3 RBC 4.11 L (4.63-6.08) M/mm3 Hgb 11.6 L (13.7-17.5) gm/L Hct 36.0 L (40.1-51.0) % MCV 87.6 (79.0-92.2) fl MCH 28.2 (25.7-32.2) pg MCHC 32.2 (32.2-35.5) g/dl RDW Std Deviation 41.2 (35.1-43.9) fL Plt Count 506 H (163-337) K/mm3 MPV 9.3 L (9.4-12.3) fl Neutrophils % (Manual) 73 H (40-60) % Band Neutrophils % 0 (0-10) % Lymphocytes % (Manual) 19 L (20-40) % Atypical Lymphs % 0 % Monocytes % (Manual) 2 (2-10) % Eosinophils % (Manual) 6 (0.8-7.0) % Basophils % (Manual) 0 L (0.2-1.2) Platelet Estimate Increased RBC Morph Comment Normal Sodium 134 L (136-145) mEq/L Potassium 4.1 (3.5-5.1) mEq/L Chloride 97 L (98-107) mEq/L Carbon Dioxide 26 (21-32) mEq/L Anion Gap 15.1 H (5-15) BUN 10 (7-18) mg/dL Creatinine 1.0 (0.7-1.3) mg/dL Est Cr Clr Drug Dosing 74.59 mL/min Estimated GFR (MDRD) > 60 (>60) mL/min BUN/Creatinine Ratio 10.0 L (14-18) Glucose 111 (80-115) mg/dL Calcium 8.9 (8.5-10.1) mg/dL Total Bilirubin 0.3 (0.2-1.0) mg/dL AST 13 L (15-37) U/L ALT 22 (16-63) U/L Alkaline Phosphatase 97 (46-116) U/L Total Protein 7.7 (6.4-8.2) g/dl Albumin 3.5 (3.4-5.0) g/dl Globulin 4.2 gm/dL Albumin/Globulin Ratio 0.8 L (1-2) Lipase 122 (73-393) U/L Urine Color Yellow (Yellow) Urine Appearance Clear (Clear) Urine pH 8.0 (5.0-8.0) Ur Specific [place] 1.015 (1.005-1.030) Urine Protein Trace H (Negative) Urine Glucose (UA) Trace H (Negative) Urine Ketones Negative (Negative) Urine Occult Blood Negative (Negative) Urine Nitrite Negative (Negative) Urine Bilirubin Negative (Negative) Urine Urobilinogen 0.2 (0.2-1.0) Ur Leukocyte Esterase Negative (Negative) Urine RBC 0-5 (0-5) /hpf Urine WBC 0-5 (0-5) /hpf Ur Epithelial Cells Not Reportable Ur Squamous Epith Cells Not seen (0-5) /hpf Urine Bacteria Few (FEW) /hpf Urine Mucus Few (FEW) /hpf Meds: Medications Discontinued Medications Generic Name Dose Route Start Last Admin Trade Name Partha PRN Reason Stop Dose Admin Dicyclomine HCl 20 mg 07/26/16 22:55 07/26/16 23:05 Bentyl IM 07/26/16 22:56 20 mg ONETIME ONE Administration Ondansetron HCl 4 mg 07/26/16 23:10 07/26/16 23:42 Zofran IVPUSH 07/26/16 23:11 4 mg ONETIME STA Administration - Radiology Interpretation Free Text/Narrative:: Upright radiograph of the abdomen appears to demonstrate significant stool in the colon. Otherwise nonspecific bowel gas pattern. There appears to be a large amount of contrast-enhanced urine in the bladder. Formal read per the Radiologist pending. - Re-Assessments/Exams Free Text/Narrative Re-Assessment/Exam: 07/27/16 00:53 The bladder scan indicated >999 ml. The nurse had the patient urinate a second time, recovering about 200 mL of urine, however, the repeat bladder scan is still showing 999 ml. I discussed this with the patient, then ordered a Uribe to leg bag. An overdistended urinary bladder may be the reason why the patient is having difficulty defecating. 07/27/16 01:35 Test results and the bladder situation discussed with the patient. The Uribe has now drained over 1 L of urine. I expect that he should be able to defecate now that his bladder is deflated. I will have him followup with Dr. Quevedo this coming week. Departure - Departure Time of Disposition: 01:36 Disposition: Home, Self-Care 01 Condition: fair Clinical Impression: Abdominal cramping, generalized, Urinary retention - Discharge Information Referrals: Rafiq Kinsey MD [Primary Care Provider] - William Quevedo MD [Physician] - Forms: ED Department Discharge Additional Instructions: You were seen in the emergency room for abdominal cramps. Workup in the ER included blood work, a urinalysis, and an abdominal x-ray. Your workup was unremarkable, however, we noticed on your abdominal x-ray that your bladder was very full. After further evaluation, we found that you had over 1 L of urine retained in your bladder. This was drained with a Uribe catheter. The cause of your urinary retention is not known. You will need to followup with the Urologist Dr. Quevedo at the next available appointment. In the meantime, care for the Uribe catheter and leg bag as instructed by the nurse. Make sure that the leg bag is below the height of your body at night, so that urine does not backflow into your bladder at night. We expect that with your bladder deflated, you will now be able to defecate more normally, which should relieve your abdominal cramps. If any other problems, please do not hesitate to return to the ER. - My Orders Last 24 Hours: My Active Orders 07/26/16 22:56 Abdomen 1V Upright [CR] Stat 07/27/16 00:06 Bladder Scan [RC] ONETIME 07/27/16 00:52 Urinary Catheter Assessment [RC] ASDIRECTED 07/27/16 01:00 Uribe Catheter Insertion [Insert Urinary Catheter] [OM.PC] Q24H - Assessment/Plan Last 24 Hours: My Active Orders 07/26/16 22:56 Abdomen 1V Upright [CR] Stat 07/27/16 00:06 Bladder Scan [RC] ONETIME 07/27/16 00:52 Urinary Catheter Assessment [RC] ASDIRECTED 07/27/16 01:00 Uribe Catheter Insertion [Insert Urinary Catheter] [OM.PC] Q24H
[2016-07-27 02:00] VITALS: BP 148/69
--- NOTE | 2016-07-28 08:18 | CR ---
Abdomen: Upright view of the abdomen was obtained. Comparison: Previous abdominal x-ray of 02/22/16. Contrast seen within the colon as well as urinary bladder. Please correlate as to etiology. Left iliac stent is present. Mild degenerative change noted within the spine and within both hips. Bowel gas pattern appears within normal limits and does not appear to be obstructive. No free air is seen. Impression: 1. Contrast within the colon and within the bladder. Please correlate as to etiology. 2. Other incidental findings as described above. Diagnostic code #2
== END 2016-07-27 01:52 | disposition home or self-care (01) ==
LOC: JD.ED 22:22
DX: R33.9 Retention of urine, unspecified (principal); E78.00 Pure hypercholesterolemia, unspecified; I10 Essential (primary) hypertension; F41.9 Anxiety disorder, unspecified; F32.9 Major depressive disorder, single episode, unspecified; F17.210 Nicotine dependence, cigarettes, uncomplicated; Z88.8 Allergy status to other drugs, medicaments and biological substances; Z79.899 Other long term (current) drug therapy; Z79.82 Long term (current) use of aspirin
CPT/HCPCS: 36415; 51702; 51798; 74000; 80053; 81001; 83690; 85025; 96372; 96374; 99284; J0500; J2405

== ENCOUNTER 2016-08-05 18:52 | Emergency (ER) | payer MEDICARE, MEDICAID ==
[2016-08-05] MEDS ORDERED: Aspirin 81 MG Tab.Chew PO ONE (19:00)
[2016-08-05] MEDS ORDERED: Sodium Chloride 0.9% 10 ML Syringe FLUSH PRN (19:00)
--- NOTE | 2016-08-05 19:06 | EDM.PDOC ---
ED HPI GENERAL MEDICAL PROBLEM - General Chief Complaint: Chest Pain Stated Complaint: CHEST PAIN Time Seen by Provider: 08/05/16 18:57 Source of Information: Reports: Patient History Limitations: Reports: No Limitations - History of Present Illness INITIAL COMMENTS - FREE TEXT/NARRATIVE: The patient presents with left lower chest pain that started about noon today. He has no shortness of breath with it but he has some nausea. He has not vomited and he has no abdominal pain. He has no history of OK. He has a history of paraoxysmal atrial tachycardia. He has no fever, chills, cough, congestion, or runny nose. He has no pain with exertion. He has no history of diabetes or hypercholesterolemia. He does have a history of HTN that is under control with medications. The pain is better now. Onset: Gradual Duration: Hour(s): (since noon) Location: Reports: Chest Quality: Reports: Pressure Severity: Moderate Improves with: Reports: None Worsens with: Reports: None Associated Symptoms: Reports: No Other Symptoms Chest Pain Score (Numeric/FACES): 5 - Related Data Allergies Allergy/AdvReac Type Severity Reaction Status Date / Time trazodone Allergy Other Verified 08/05/16 19:03 Home Meds: Home Meds Losartan [Cozaar] 100 mg PO DAILY 09/13/15 [History] Propranolol [Inderal] 40 mg PO QID 09/13/15 [History] Tamsulosin HCl [Tamsulosin HCl] 0.4 mg PO BEDTIME 09/13/15 [History] atorvaSTATin [Lipitor] 20 mg PO BEDTIME 09/13/15 [History] metFORMIN [Glucophage XR] 250 mg PO BID 09/13/15 [History] Cholecalciferol (Vitamin D3) [Vitamin D3] 2,000 unit PO DAILY 10/13/15 [History] risperiDONE [risperiDONE] 0.5 mg PO DAILY 10/13/15 [History] Sertraline HCl [Zoloft] 150 mg PO DAILY 02/22/16 [History] Alpha Lipoic Acid 400 mg PO DAILY 05/31/16 [History] Magnesium Citrate 100 mg PO BID 05/31/16 [History] Multivitamin [Multivitamins] 1 tab PO DAILY 05/31/16 [History] Pantoprazole Sodium [Protonix] 40 mg PO DAILY 05/31/16 [History] amLODIPine [Norvasc] 10 mg PO DAILY 05/31/16 [History] Aspirin [Ecotrin] 325 mg PO DAILY 06/03/16 [History] LORazepam [Ativan] 1 mg PO TID 07/26/16 [History] Past Medical History HEENT History: Reports: Impaired Vision Other HEENT History: glasses Cardiovascular History: Reports: High Cholesterol, Hypertension, PVD Respiratory History: Reports: None Gastrointestinal History: Reports: Colon Polyp, Gastritis, Helicobacter Pylori Other Gastrointestinal History: tubular adenoma Genitourinary History: Reports: Retention, Urinary Musculoskeletal History: Reports: None Neurological History: Reports: None Psychiatric History: Reports: Addiction (alcoholism), Anxiety, Depression, Schizophrenia, Suicidal Ideation Endocrine/Metabolic History: Reports: Other (See Below) (Prediabetes) Other Endocrine/Metabolic History: states was Dx'd with "pre-diabetic." Hematologic History: Reports: None Immunologic History: Reports: None Oncologic (Cancer) History: Reports: None Dermatologic History: Reports: None - Infectious Disease History Infectious Disease History: Reports: Shingles - Past Surgical History Cardiovascular Surgical History: Reports: Vascular Surgery (Left iliac artery stent 07/2015) GI Surgical History: Reports: Colonoscopy, EGD, Other (See Below) (Hemicolectomy ) Social & Family History - Family History Family Medical History: Noncontributory Cardiac: Reports: High Cholesterol, OK - Tobacco Use Smoking Status *Q: Current Every Day Smoker Years of Tobacco use: 47 Packs/Tins Daily: 1 Second Hand Smoke Exposure: Yes - Caffeine Use Caffeine Use: Reports: Coffee - Alcohol Use Days Per Week of Alcohol Use: 0 - Recreational Drug Use Recreational Drug Use: Yes Drug Use in Last 12 Months: No Recreational Drug Type: Reports: Marijuana/Hashish - Living Situation & Occupation Living situation: Reports: Single, Alone Occupation: Retired ED ROS GENERAL - Review of Systems Review Of Systems: See Below Constitutional: Reports: No Symptoms HEENT: Reports: No Symptoms Respiratory: Reports: No Symptoms Cardiovascular: Reports: Chest Pain Endocrine: Reports: No Symptoms GI/Abdominal: Reports: Nausea. Denies: Abdominal Pain, Diarrhea, Vomiting : Reports: No Symptoms Musculoskeletal: Reports: No Symptoms Skin: Reports: No Symptoms Neurological: Reports: No Symptoms ED EXAM, GENERAL - Physical Exam Exam: See Below Exam Limited By: No Limitations General Appearance: Alert, No Apparent Distress Ears: Normal External Exam Nose: Normal Inspection Head: Atraumatic, Normocephalic Neck: Normal Inspection Respiratory/Chest: No Respiratory Distress, Lungs Clear, Normal Breath Sounds Cardiovascular: Regular Rate, Rhythm, No Edema, No Murmur GI/Abdominal: Soft, Non-Tender, No Organomegaly, No Mass Extremities: Normal Inspection Neurological: Alert, Oriented, No Motor/Sensory Deficits Course - Vital Signs Last Recorded V/S: Last Vital Signs Temp 97.4 F 08/05/16 19:00 Pulse 77 08/05/16 19:00 Resp 18 08/05/16 19:00 BP 154/76 H 08/05/16 19:00 Pulse Ox 99 08/05/16 19:45 - Orders/Labs/Meds Orders: Active Orders 24 hr Category Date Time Status Cardiac Monitoring [RC] . DIRECTED Care 08/05/16 19:01 Active EKG Documentation Completion [RC] STAT Care 08/05/16 19:01 Active Oxygen Therapy [RC] PRN Care 08/05/16 19:01 Active Peripheral IV Care [RC] . DIRECTED Care 08/05/16 19:01 Active Chest 2V [CR] Stat Exams 08/05/16 19:01 Taken Sodium Chloride 0.9% [Saline Flush] Med 08/05/16 19:00 Active 10 ml FLUSH ASDIRECTED PRN Peripheral IV Insertion Adult [OM.PC] Stat Oth 08/05/16 19:00 Ordered Medication Orders Sodium Chloride (Saline Flush) 10 ml FLUSH ASDIRECTED PRN PRN Reason: Keep Vein Open Last Admin: 08/05/16 19:28 Dose: 10 ml Labs: Laboratory Tests 08/05/16 08/05/16 Range/Units 19:05 19:05 WBC 13.54 H (4.23-9.07) K/mm3 RBC 3.93 L (4.63-6.08) M/mm3 Hgb 11.0 L (13.7-17.5) gm/L Hct 34.5 L (40.1-51.0) % MCV 87.8 (79.0-92.2) fl MCH 28.0 (25.7-32.2) pg MCHC 31.9 L (32.2-35.5) g/dl RDW Std Deviation 42.0 (35.1-43.9) fL Plt Count 541 H (163-337) K/mm3 MPV 8.6 L (9.4-12.3) fl Neut % (Auto) 69.6 H (34.0-67.9) % Lymph % (Auto) 15.8 L (21.8-53.1) % [place] % (Auto) 10.7 (5.3-12.2) % Eos % (Auto) 2.8 (0.8-7.0) Baso % (Auto) 0.6 (0.1-1.2) % Neut # (Auto) 9.42 H (1.78-5.38) K/mm3 Lymph # (Auto) 2.14 (1.32-3.57) K/mm3 [place] # (Auto) 1.45 H (0.30-0.82) K/mm3 Eos # (Auto) 0.38 (0.04-0.54) K/mm3 Baso # (Auto) 0.08 (0.01-0.08) K/mm3 Sodium 132 L (136-145) mEq/L Potassium 4.2 (3.5-5.1) mEq/L Chloride 97 L (98-107) mEq/L Carbon Dioxide 26 (21-32) mEq/L Anion Gap 13.2 (5-15) BUN 10 (7-18) mg/dL Creatinine 1.0 (0.7-1.3) mg/dL Est Cr Clr Drug Dosing TNP Estimated GFR (MDRD) > 60 (>60) mL/min BUN/Creatinine Ratio 10.0 L (14-18) Glucose 127 H (80-115) mg/dL Calcium 8.8 (8.5-10.1) mg/dL Total Bilirubin 0.3 (0.2-1.0) mg/dL AST 20 (15-37) U/L ALT 25 (16-63) U/L Alkaline Phosphatase 100 (46-116) U/L Troponin I < 0.017 (0.00-0.056) ng/mL Total Protein 7.2 (6.4-8.2) g/dl Albumin 3.4 (3.4-5.0) g/dl Globulin 3.8 gm/dL Albumin/Globulin Ratio 0.9 L (1-2) Meds: Medications Generic Name Dose Route Start Last Admin Trade Name Freq PRN Reason Stop Dose Admin Sodium Chloride 10 ml 08/05/16 19:00 08/05/16 19:28 Saline Flush FLUSH 10 ml ASDIRECTED PRN Administration Keep Vein Open Discontinued Medications Generic Name Dose Route Start Last Admin Trade Name Partha PRN Reason Stop Dose Admin Aspirin 324 mg 08/05/16 19:00 08/05/16 19:27 Aspirin PO 08/05/16 19:01 324 mg ONETIME ONE Administration - Re-Assessments/Exams Free Text/Narrative Re-Assessment/Exam: 08/05/16 19:05 I ordered O2 as needed, IV saline lock, labs, EKG, CXR and aspirin. 08/05/16 20:28 His EKG shows nothing acute. His CXR looks good. His WBC is elevated at 13.54. His Hgb is a little low at 13.54. His Platelets are a little high at 541. His Na is a little low at 132. His glucose is 127. His troponin is negative. His is feeling good. 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 He is going to go to [place] to have surgery done. He has not heard when that will be. He was here last month for abdominal pain and he was found to have urinary retention. He has been self cathing since. He has no dysuria. I will have him follow up with his doctor this week. Departure - Departure Time of Disposition: 20:35 Disposition: Home, Self-Care 01 Condition: good Clinical Impression: Atypical chest pain Referrals: Rafiq Kinsey MD [Primary Care Provider] - 3 Days Forms: ED Department Discharge Additional Instructions: Take your medication as prescribed. Follow up with Dr Kinsey this week. Please return if you are worse. - My Orders Last 24 Hours: My Active Orders 08/05/16 19:00 Sodium Chloride 0.9% [Saline Flush] 10 ml FLUSH ASDIRECTED PRN Peripheral IV Insertion Adult [OM.PC] Stat 08/05/16 19:01 Cardiac Monitoring [RC] . DIRECTED EKG Documentation Completion [RC] STAT Oxygen Therapy [RC] PRN Peripheral IV Care [RC] . DIRECTED Chest 2V [CR] Stat - Assessment/Plan Last 24 Hours: My Active Orders 08/05/16 19:00 Sodium Chloride 0.9% [Saline Flush] 10 ml FLUSH ASDIRECTED PRN Peripheral IV Insertion Adult [OM.PC] Stat 08/05/16 19:01 Cardiac Monitoring [RC] . DIRECTED EKG Documentation Completion [RC] STAT Oxygen Therapy [RC] PRN Peripheral IV Care [RC] . DIRECTED Chest 2V [CR] Stat
[2016-08-05 22:05] VITALS: BP 123/68
--- NOTE | 2016-08-06 07:35 | CR ---
Chest: Two views of the chest were obtained. Comparison: Previous chest x-ray of 10/13/15. Heart size and mediastinum are within normal limits. Lungs are clear but hyperinflated. Slight degenerative change is scattered within the spine. Impression: 1. Emphysematous change. Other incidental findings. 2. Nothing acute is appreciated on two-view chest x-ray. Diagnostic code #2
== END 2016-08-05 20:50 | disposition home or self-care (01) ==
LOC: JD.ED 18:52
DX: R07.89 Other chest pain (principal); I10 Essential (primary) hypertension; E78.00 Pure hypercholesterolemia, unspecified; I73.9 Peripheral vascular disease, unspecified; F41.9 Anxiety disorder, unspecified; F32.9 Major depressive disorder, single episode, unspecified; F20.9 Schizophrenia, unspecified; F17.210 Nicotine dependence, cigarettes, uncomplicated; Z98.890 Other specified postprocedural states; Z90.49 Acquired absence of other specified parts of digestive tract; Z79.82 Long term (current) use of aspirin; Z79.899 Other long term (current) drug therapy; Z88.8 Allergy status to other drugs, medicaments and biological substances
CPT/HCPCS: 36415; 71020; 80053; 84484; 85025; 93005; 99285; A9270; J7050; 99284